=== PATIENT | male | born 1970 | race Caucasian/White ===

== ENCOUNTER 2017-02-24 22:32 | Inpatient (IN) | payer MEDICAID ==
[~2017-02-24] VITALS: Ht 165.1 cm; Wt 72.3 kg
[~2017-02-24 22:32] MED LIST: ESCI5TAB10 PO; INSLAN SQ; INSU100C6 SQ; LISI2.5T2 PO; LOVA20TA PO
[2017-02-25 02:52] LABS: GLUCOMETER DEV NAME(LOC) 3EI B; GLUCOSE,POINT OF CARE 130 MG/DL (70-110)
[2017-02-25] MEDS ORDERED: HALOPERIDOL 5 MG TABLET PO PRN (03:30)
[2017-02-25] MEDS ORDERED: INFLUENZA VIRUS VACCINE QVS 2017-18 (3YR+)/PF 60 MCG/0.5 ML SYRINGE IM ONE (04:30)
[2017-02-25] MEDS ORDERED: INSULIN ASPART 100 UNITS/ML SQ PRN ×2 (06:30→07:00)
[2017-02-25 06:45] VITALS: BP 121/79
[2017-02-25 06:48] LABS: GLUCOMETER DEV NAME(LOC) 3EI B; GLUCOSE,POINT OF CARE 129 MG/DL (70-110)
[2017-02-25] MEDS ORDERED: DEXTROSE 50%-WATER 25 GM/50 ML SYG IVP PRN (07:00)
[2017-02-25] MEDS ORDERED: MAG HYDROX/AL HYDROX/SIMETH ES 30 ML SUSPENSION UDCUP PO PRN (08:00)
[2017-02-25] MEDS ORDERED: BENZOCAINE/MENTHOL LOZENGE MM PRN (08:00)
[2017-02-25] MEDS ORDERED: CloNIDine HCL 0.1 MG TABLET PO PRN (08:00)
[2017-02-25] MEDS ORDERED: ACETAMINOPHEN 325 MG TABLET PO PRN (08:00)
[2017-02-25] MEDS ORDERED: ALBUTEROL SULFATE HFA 90 MCG/PUFF 8 GM INHALER IH PRN (08:00)
[2017-02-25] MEDS ORDERED: LOPERAMIDE HCL 2 MG CAPSULE PO PRN (08:00)
[2017-02-25] MEDS ORDERED: PETROLATUM,WHITE 71 GM JELLY TP PRN (08:00)
[2017-02-25] MEDS ORDERED: IBUPROFEN 600 MG TABLET PO PRN (08:00)
[2017-02-25] MEDS ORDERED: BACITRACIN 28.4 GM OINTMENT TP PRN (08:00)
[2017-02-25] MEDS ORDERED: ONDANSETRON HCL 4 MG TABLET PO PRN (08:00)
[2017-02-25] MEDS ORDERED: MAGNESIUM HYDROXIDE SUSPENSION 30 ML UDCUP PO PRN (08:00)
[2017-02-25 09:02] VITALS: BP 97/58
[2017-02-25] MEDS: SIMVASTATIN 10 MG TABLET PO SCH ×2 (11:11→20:38)
[2017-02-25] MEDS: LISINOPRIL 5 MG TABLET PO SCH (11:13)
[2017-02-25 11:22] LABS: GLUCOMETER DEV NAME(LOC) 3EI B; GLUCOSE,POINT OF CARE 430 MG/DL (70-110)
[2017-02-25] MEDS: INSULIN ASPART 100 UNITS/ML SQ PRN ×2 (11:27→20:37)
[2017-02-25] MEDS ORDERED: INSULIN ASPART 100 UNITS/ML SQ ONE ×2 (11:30→12:30)
[2017-02-25 13:17] LABS: GLUCOMETER DEV NAME(LOC) 3EI B; GLUCOSE,POINT OF CARE 339 MG/DL (70-110)
[2017-02-25 13:18] LABS: GLUCOMETER DEV NAME(LOC) 3EI B; GLUCOSE,POINT OF CARE 267 MG/DL (70-110)
[2017-02-25 17:08] VITALS: BP 127/70
[2017-02-25 17:27] LABS: GLUCOMETER DEV NAME(LOC) 3EI B; GLUCOSE,POINT OF CARE 33 MG/DL (70-110)
[2017-02-25 17:27] LABS: GLUCOMETER DEV NAME(LOC) 3EI B; GLUCOSE,POINT OF CARE 87 MG/DL (70-110)
[2017-02-25 20:22] LABS: GLUCOMETER DEV NAME(LOC) 3EI B; GLUCOSE,POINT OF CARE 379 MG/DL (70-110)
[2017-02-25] MEDS: INSULIN DETEMIR 100 UNITS/ML SQ SCH (20:38)
[2017-02-25] MEDS: ZOLPIDEM TARTRATE 10 MG TABLET PO PRN (21:47)
[2017-02-26] MEDS: LORazepam 2 MG TABLET PO PRN (01:33)
[2017-02-26 04:42] VITALS: BP 123/75
[2017-02-26 06:02] LABS: GLUCOMETER DEV NAME(LOC) 3EI B; GLUCOSE,POINT OF CARE 208 MG/DL (70-110)
[2017-02-26] MEDS: INSULIN ASPART 100 UNITS/ML SQ PRN ×3 (06:50→20:42)
[2017-02-26 07:31] LABS: BASOPHILS % (AUTO) 0.3 % (0.0-2.0); EOSINOPHILS % (AUTO) 0.8 % (1.0-6.0); HEMATOCRIT 44.7 % (41-53); HEMOGLOBIN 15.2 g/dL (13.5-17.5); LYMPHOCYTES % (AUTO) 16.5 % (22.0-44.0); MEAN CORPUSCULAR HEMOGLOBIN 30.8 pg (26.0-34.0); MEAN CORPUSCULAR HGB CONC 33.9 G/dL (31.0-37.0); MEAN CORPUSCULAR VOLUME 91 fL (80-100); MONOCYTES # (AUTO) 0.6 K/uL (0.1-1.0); MONOCYTES % (AUTO) 9.2 % (2.0-9.0); NEUTROPHILS # (AUTO) 4.4 K/uL (1.8-7.7); NEUTROPHILS % (AUTO) 73.2 % (40.0-70.0); PLATELET COUNT (AUTO) 223 K/uL (150-450); RED BLOOD CELL COUNT(AUTO) 4.92 MIL/uL (4.50-5.90)
[2017-02-26 08:15] VITALS: BP 103/57
[2017-02-26 08:23] LABS: ALANINE AMINOTRANSFERASE 53 U/L (12-78); ALBUMIN 3.7 g/dL (3.4-5.0); ALKALINE PHOSPHATASE 65 U/L (46-116); ANION GAP 7 mmol/L (8-16); ASPARTATE AMINOTRANSFERASE 20 U/L (15-37); BILIRUBIN,TOTAL 0.6 mg/dL (0.1-1.0); CALCIUM, TOTAL 8.9 mg/dL (8.8-10.5); CARBON DIOXIDE 28 mmol/L (22-29); CHLORIDE 102 mmol/L (98-107); CHOL/HDL RATIO 3.8 (4.2-7.3); CHOLESTEROL 181 mg/dL (131-200); CREATININE 0.93 mg/dL (0.60-1.30); GLOMERULAR FILTR. RATE CALC > 60 mL/min (>60); GLUCOSE,RANDOM 201 mg/dL (70-110); HDL CHOLESTEROL 48 mg/dL (40-60); LDL CHOL (CALC.) 125 mg/dL (0-130); SODIUM SERUM 137 mmol/L (136-145); THYROID STIMULATING HORMONE 1.31 uIU/mL (0.36-3.74); TOTAL PROTEIN, SERUM 6.8 g/dL (6.4-8.2); TRIGLYCERIDES 39 mg/dL (15-150); UREA NITROGEN, BLOOD 23 mg/dL (7-18)
[2017-02-26 08:31] LABS: HEMOGLOBIN A1C 7.8 % (4.5-6.2)
[2017-02-26] MEDS: CITALOPRAM HYDROBROMIDE 20 MG TABLET PO SCH (09:23)
[2017-02-26] MEDS: LITHIUM CARBONATE 300 MG CAPSULE PO SCH ×2 (09:23→17:00)
[2017-02-26] MEDS: LISINOPRIL 5 MG TABLET PO SCH (09:23)
[2017-02-26 11:28] LABS: GLUCOMETER DEV NAME(LOC) 3EI B; GLUCOSE,POINT OF CARE 59 MG/DL (70-110)
[2017-02-26 12:47] LABS: GLUCOMETER DEV NAME(LOC) 3EI B; GLUCOSE,POINT OF CARE 205 MG/DL (70-110)
[2017-02-26 18:12] LABS: GLUCOMETER DEV NAME(LOC) 3EI B; GLUCOSE,POINT OF CARE 412 MG/DL (70-110)
[2017-02-26] MEDS ORDERED: INSULIN ASPART 100 UNITS/ML SQ ONE ×2 (18:15→19:30)
[2017-02-26 19:22] LABS: GLUCOMETER DEV NAME(LOC) 3EI B; GLUCOSE,POINT OF CARE 404 MG/DL (70-110)
[2017-02-26 20:28] LABS: GLUCOMETER DEV NAME(LOC) 3EI B; GLUCOSE,POINT OF CARE 315 MG/DL (70-110)
[2017-02-26] MEDS: SIMVASTATIN 10 MG TABLET PO SCH (20:40)
[2017-02-26] MEDS: ZOLPIDEM TARTRATE 10 MG TABLET PO PRN (20:40)
[2017-02-26] MEDS: INSULIN DETEMIR 100 UNITS/ML SQ SCH (20:42)
[2017-02-27 00:02] LABS: GLUCOMETER DEV NAME(LOC) 3EI B; GLUCOSE,POINT OF CARE 32 MG/DL (70-110)
[2017-02-27 01:00] VITALS: BP 124/71
[2017-02-27 01:07] LABS: GLUCOMETER DEV NAME(LOC) 3EI B; GLUCOSE,POINT OF CARE 258 MG/DL (70-110)
[2017-02-27] MEDS: LORazepam 2 MG TABLET PO PRN (02:54)
[2017-02-27 06:22] LABS: GLUCOMETER DEV NAME(LOC) 3EI B; GLUCOSE,POINT OF CARE 237 MG/DL (70-110)
[2017-02-27] MEDS: INSULIN ASPART 100 UNITS/ML SQ PRN ×4 (07:22→20:37)
[2017-02-27 09:02] VITALS: BP 101/81
[2017-02-27] MEDS: LISINOPRIL 5 MG TABLET PO SCH (09:53)
[2017-02-27] MEDS: CITALOPRAM HYDROBROMIDE 20 MG TABLET PO SCH (09:54)
[2017-02-27] MEDS: LITHIUM CARBONATE 300 MG CAPSULE PO SCH ×2 (09:54→16:41)
[2017-02-27 11:27] LABS: GLUCOMETER DEV NAME(LOC) 3EI B; GLUCOSE,POINT OF CARE 99 MG/DL (70-110)
[2017-02-27 17:03] LABS: GLUCOMETER DEV NAME(LOC) 3EI B; GLUCOSE,POINT OF CARE 244 MG/DL (70-110)
[2017-02-27] MEDS: INSULIN DETEMIR 100 UNITS/ML SQ SCH (20:36)
[2017-02-27 20:38] LABS: GLUCOMETER DEV NAME(LOC) 3EI B; GLUCOSE,POINT OF CARE 291 MG/DL (70-110)
[2017-02-27] MEDS: SIMVASTATIN 10 MG TABLET PO SCH (21:41)
[2017-02-28 00:32] VITALS: BP 102/70
[2017-02-28] MEDS: ZOLPIDEM TARTRATE 10 MG TABLET PO PRN (00:36)
[2017-02-28 05:24] LABS: GLUCOMETER DEV NAME(LOC) 3EI B; GLUCOSE,POINT OF CARE 113 MG/DL (70-110)
[2017-02-28] MEDS: LITHIUM CARBONATE 300 MG CAPSULE PO SCH ×2 (09:00→16:59)
[2017-02-28] MEDS: LISINOPRIL 5 MG TABLET PO SCH (09:00)
[2017-02-28] MEDS: CITALOPRAM HYDROBROMIDE 20 MG TABLET PO SCH (10:01)
[2017-02-28 10:58] VITALS: BP 129/88
[2017-02-28] MEDS: INSULIN ASPART 100 UNITS/ML SQ PRN ×3 (11:41→21:04)
[2017-02-28] MEDS: LORazepam 2 MG TABLET PO PRN ×2 (12:28→17:35)
[2017-02-28 16:22] VITALS: BP 112/86
[2017-02-28 17:19] LABS: GLUCOMETER DEV NAME(LOC) 3EI B; GLUCOSE,POINT OF CARE 261 MG/DL (70-110)
[2017-02-28 20:49] LABS: GLUCOMETER DEV NAME(LOC) 3EI B; GLUCOSE,POINT OF CARE 237 MG/DL (70-110)
[2017-02-28] MEDS: INSULIN DETEMIR 100 UNITS/ML SQ SCH (20:59)
[2017-02-28] MEDS: SIMVASTATIN 10 MG TABLET PO SCH (21:07)
[2017-03-01 06:26] LABS: GLUCOMETER DEV NAME(LOC) 3EI B; GLUCOSE,POINT OF CARE 225 MG/DL (70-110)
[2017-03-01] MEDS: INSULIN ASPART 100 UNITS/ML SQ PRN ×2 (07:09→11:32)
[2017-03-01] MEDS: LITHIUM CARBONATE 300 MG CAPSULE PO SCH ×2 (09:00→09:55)
[2017-03-01] MEDS: LISINOPRIL 5 MG TABLET PO SCH (09:00)
[2017-03-01] MEDS: CITALOPRAM HYDROBROMIDE 20 MG TABLET PO SCH (09:55)
[2017-03-01 11:34] LABS: GLUCOMETER DEV NAME(LOC) 3EI B; GLUCOSE,POINT OF CARE 91 MG/DL (70-110)
[2017-03-01] MEDS ORDERED: CITA20TA9 PO (12:07)
[2017-03-01] MEDS ORDERED: LITH300C3 PO (12:07)
[2017-03-01] MEDS ORDERED: SIMV-259 PO (12:09)
[2017-03-01] MEDS ORDERED: INSU100V12 SQ (12:09)
[2017-03-01 13:41] VITALS: BP 127/86
== END 2017-03-01 13:30 | disposition home or self-care (01) | DRG 753 ==
LOC: 3EI 02-25 01:00
PROVIDERS: ADMIT Psychiatry & Neurology Psychiatry; ATTEND Psychiatry & Neurology Psychiatry
DX: F31.9 Bipolar disorder, unspecified (principal); E10.40 Type 1 diabetes mellitus with diabetic neuropathy, unspecified; R45.851 Suicidal ideations; I10 Essential (primary) hypertension; F19.10 Other psychoactive substance abuse, uncomplicated; G47.00 Insomnia, unspecified; F17.200 Nicotine dependence, unspecified, uncomplicated; F15.10 Other stimulant abuse, uncomplicated; E10.65 Type 1 diabetes mellitus with hyperglycemia; K59.00 Constipation, unspecified; Z72.89 Other problems related to lifestyle; Z56.0 Unemployment, unspecified; Z79.4 Long term (current) use of insulin; Z59.0 Homelessness; Z71.41 Alcohol abuse counseling and surveillance of alcoholic; Z71.6 Tobacco abuse counseling; Z71.51 Drug abuse counseling and surveillance of drug abuser; Z28.21 Immunization not carried out because of patient refusal
CPT/HCPCS: 82306; 82962; 83036; 84443; 87081; 99285; J1815

== ENCOUNTER 2017-03-01 13:40 | Inpatient (IN) | payer MEDICAID, OTHER ==
[~2017-03-01] VITALS: Ht 167.6 cm; Wt 70.8 kg
[~2017-03-01 13:40] MED LIST changes: +CITA20TA9 PO; +INSU100V12 SQ; +LITH300C3 PO; +SIMV-259 PO
[2017-03-01] MEDS ORDERED: HALOPERIDOL 5 MG TABLET PO PRN (17:15)
[2017-03-01 17:27] LABS: BASOPHILS # (AUTO) 0.03 K/uL (0.00-0.20); BASOPHILS % (AUTO) 0.5 % (0.0-2.0); EOSINOPHILS # (AUTO) 0.05 K/uL (0.00-0.70); EOSINOPHILS % (AUTO) 0.86 % (1.0-6.0); HEMATOCRIT 47.1 % (41-53); HEMOGLOBIN 15.5 g/dL (13.5-17.5); LYMPHOCYTES # (AUTO) 0.8 K/uL (1.0-4.8); LYMPHOCYTES % (AUTO) 13.8 % (22.0-44.0); MEAN CORPUSCULAR HEMOGLOBIN 29.9 pg (26.0-34.0); MEAN CORPUSCULAR HGB CONC 32.9 G/dL (31.0-37.0); MEAN CORPUSCULAR VOLUME 91 fL (80-100); MONOCYTES # (AUTO) 0.6 K/uL (0.1-1.0); MONOCYTES % (AUTO) 9.2 % (2.0-9.0); NEUTROPHILS # (AUTO) 4.6 K/uL (1.8-7.7); NEUTROPHILS % (AUTO) 75.7 % (40.0-70.0); PLATELET COUNT (AUTO) 188 K/uL (150-450); RED BLOOD CELL COUNT(AUTO) 5.18 MIL/uL (4.50-5.90); RED CELL DISTRIBUTION WIDTH 12.8 % (11.5-14.5); WHITE BLOOD COUNT (AUTO) 6.1 K/uL (4.5-11.0)
[2017-03-01 17:36] LABS: ANION GAP 7 mmol/L (8-16); CALCIUM, TOTAL 8.8 mg/dL (8.8-10.5); CARBON DIOXIDE 29 mmol/L (22-29); CHLORIDE 102 mmol/L (98-107); CREATININE 1.03 mg/dL (0.60-1.30); GLOMERULAR FILTR. RATE CALC > 60 mL/min (>60); POTASSIUM 4.5 mmol/L (3.5-5.1); SODIUM SERUM 138 mmol/L (136-145); UREA NITROGEN, BLOOD 18 mg/dL (7-18)
[2017-03-01 17:41] LABS: ALANINE AMINOTRANSFERASE 53 U/L (12-78); ALBUMIN 3.7 g/dL (3.4-5.0); ASPARTATE AMINOTRANSFERASE 24 U/L (15-37); BILIRUBIN,TOTAL 0.6 mg/dL (0.1-1.0)
[2017-03-01] MEDS ORDERED: DEXTROSE 50%-WATER 25 GM/50 ML SYRINGE IVP PRN (18:45)
[2017-03-01] MEDS ORDERED: ACETAMINOPHEN 325 MG TABLET PO PRN (18:45)
[2017-03-01] MEDS ORDERED: IBUPROFEN 600 MG TABLET PO PRN (18:45)
[2017-03-01] MEDS ORDERED: PNEUMOCOCCAL VACCINE POLYVALENT 0.5 ML VIAL [PPSV23] IM ONE (19:00)
[2017-03-01] MEDS ORDERED: INFLUENZA VIRUS VACCINE QVS 2017-18 (3YR+)/PF 60 MCG/0.5 ML SYRINGE IM ONE (19:00)
[2017-03-01 20:47] LABS: GLUCOSE,POINT OF CARE 312 MG/DL (70-110)
[2017-03-01] MEDS: SIMVASTATIN 10 MG TABLET PO SCH (20:52)
[2017-03-01] MEDS: INSULIN DETEMIR 100 UNITS/ML SQ SCH (20:55)
[2017-03-01] MEDS: INSULIN ASPART 100 UNITS/ML SQ PRN (20:55)
[2017-03-01] MEDS: ZOLPIDEM TARTRATE 10 MG TABLET PO PRN (21:31)
[2017-03-02 01:50] VITALS: BP 120/66
[2017-03-02] MEDS: LORazepam 2 MG TABLET PO PRN ×3 (01:52→16:53)
[2017-03-02] MEDS: INSULIN ASPART 100 UNITS/ML SQ PRN ×4 (06:40→17:33)
[2017-03-02 06:43] LABS: GLUCOSE,POINT OF CARE 170 MG/DL (70-110)
[2017-03-02 08:38] VITALS: BP 116/66
[2017-03-02] MEDS: CITALOPRAM HYDROBROMIDE 20 MG TABLET PO SCH (08:59)
[2017-03-02] MEDS: LISINOPRIL 5 MG TABLET PO SCH (08:59)
[2017-03-02] MEDS: INSULIN ASPART 100 UNITS/ML SQ SCH ×3 (11:00→16:53)
[2017-03-02 11:18] LABS: GLUCOSE,POINT OF CARE 212 MG/DL (70-110)
[2017-03-02 16:12] VITALS: BP 111/60
[2017-03-02] MEDS: LITHIUM CARBONATE 300 MG CAPSULE PO SCH (16:53)
[2017-03-02 16:57] LABS: GLUCOSE,POINT OF CARE 341 MG/DL (70-110)
[2017-03-02] MEDS: SIMVASTATIN 10 MG TABLET PO SCH (20:32)
[2017-03-02] MEDS: INSULIN DETEMIR 100 UNITS/ML SQ SCH (20:32)
[2017-03-02] MEDS: ZOLPIDEM TARTRATE 10 MG TABLET PO PRN (20:56)
[2017-03-03 00:11] LABS: GLUCOSE,POINT OF CARE 133 MG/DL (70-110)
[2017-03-03 02:45] VITALS: BP 128/62
[2017-03-03] MEDS: LORazepam 2 MG TABLET PO PRN ×2 (02:47→11:51)
[2017-03-03] MEDS: INSULIN ASPART 100 UNITS/ML SQ SCH ×3 (07:03→16:58)
[2017-03-03] MEDS: INSULIN ASPART 100 UNITS/ML SQ PRN ×3 (07:05→20:44)
[2017-03-03 07:08] LABS: GLUCOSE,POINT OF CARE 276 MG/DL (70-110)
[2017-03-03 08:20] VITALS: BP 102/61
[2017-03-03] MEDS: LITHIUM CARBONATE 300 MG CAPSULE PO SCH ×2 (09:32→16:25)
[2017-03-03] MEDS: CITALOPRAM HYDROBROMIDE 20 MG TABLET PO SCH (09:32)
[2017-03-03] MEDS: LISINOPRIL 5 MG TABLET PO SCH (09:32)
[2017-03-03 11:07] LABS: GLUCOSE,POINT OF CARE 222 MG/DL (70-110)
[2017-03-03 11:50] VITALS: BP 112/76
[2017-03-03 16:50] VITALS: BP 99/56
[2017-03-03 16:57] LABS: GLUCOSE,POINT OF CARE 138 MG/DL (70-110)
[2017-03-03 20:23] LABS: GLUCOSE,POINT OF CARE 238 MG/DL (70-110)
[2017-03-03] MEDS: SIMVASTATIN 10 MG TABLET PO SCH (20:32)
[2017-03-03] MEDS: INSULIN DETEMIR 100 UNITS/ML SQ SCH (20:44)
[2017-03-04 02:44] VITALS: BP 104/68
[2017-03-04] MEDS: INSULIN ASPART 100 UNITS/ML SQ SCH ×3 (06:10→17:02)
[2017-03-04 06:18] LABS: GLUCOSE,POINT OF CARE 318 MG/DL (70-110)
[2017-03-04] MEDS: INSULIN ASPART 100 UNITS/ML SQ PRN ×3 (06:21→21:15)
[2017-03-04 08:01] VITALS: BP 103/68
[2017-03-04] MEDS: CITALOPRAM HYDROBROMIDE 20 MG TABLET PO SCH (08:02)
[2017-03-04] MEDS: LITHIUM CARBONATE 300 MG CAPSULE PO SCH ×2 (08:03→16:45)
[2017-03-04] MEDS: LISINOPRIL 5 MG TABLET PO SCH (08:03)
[2017-03-04] MEDS: LORazepam 2 MG TABLET PO PRN ×2 (08:04→12:54)
[2017-03-04 08:12] VITALS: BP 95/63
[2017-03-04 11:13] LABS: GLUCOSE COMMENT 1 Received Meds; GLUCOSE,POINT OF CARE 241 MG/DL (70-110)
[2017-03-04 16:42] LABS: GLUCOSE,POINT OF CARE 139 MG/DL (70-110)
[2017-03-04 17:48] VITALS: BP 118/69
[2017-03-04 20:33] LABS: GLUCOSE,POINT OF CARE 226 MG/DL (70-110)
[2017-03-04] MEDS: SIMVASTATIN 10 MG TABLET PO SCH (20:44)
[2017-03-04] MEDS: INSULIN DETEMIR 100 UNITS/ML SQ SCH (21:15)
[2017-03-04] MEDS ORDERED: GLUCAGON,HUMAN RECOMBINANT 1 MG VIAL IM PRN (21:30)
[2017-03-04] MEDS: ZOLPIDEM TARTRATE 10 MG TABLET PO PRN (22:20)
[2017-03-05 01:46] VITALS: BP 109/72
[2017-03-05] MEDS: LORazepam 2 MG TABLET PO PRN ×3 (02:00→16:16)
[2017-03-05] MEDS: INSULIN ASPART 100 UNITS/ML SQ SCH ×3 (07:04→16:39)
[2017-03-05 08:29] VITALS: BP 118/64
[2017-03-05] MEDS: LITHIUM CARBONATE 300 MG CAPSULE PO SCH ×2 (08:36→16:16)
[2017-03-05] MEDS: LISINOPRIL 5 MG TABLET PO SCH (08:36)
[2017-03-05] MEDS: CITALOPRAM HYDROBROMIDE 20 MG TABLET PO SCH (08:36)
[2017-03-05 08:38] LABS: GLUCOSE,POINT OF CARE 110 MG/DL (70-110)
[2017-03-05 11:12] LABS: GLUCOSE COMMENT 1 Received Meds; GLUCOSE,POINT OF CARE 86 MG/DL (70-110)
[2017-03-05 16:24] VITALS: BP 109/68
[2017-03-05 16:28] LABS: GLUCOSE,POINT OF CARE 374 MG/DL (70-110)
[2017-03-05] MEDS: INSULIN ASPART 100 UNITS/ML SQ PRN ×2 (16:39→20:27)
[2017-03-05] MEDS: SIMVASTATIN 10 MG TABLET PO SCH (20:05)
[2017-03-05] MEDS: ZOLPIDEM TARTRATE 10 MG TABLET PO PRN (20:23)
[2017-03-05] MEDS: INSULIN DETEMIR 100 UNITS/ML SQ SCH (20:27)
[2017-03-05 20:33] LABS: GLUCOSE,POINT OF CARE 275 MG/DL (70-110)
[2017-03-06 00:04] VITALS: BP 100/61
[2017-03-06] MEDS: LORazepam 2 MG TABLET PO PRN ×2 (06:32→17:57)
[2017-03-06 07:02] LABS: GLUCOSE,POINT OF CARE 276 MG/DL (70-110)
[2017-03-06] MEDS: INSULIN ASPART 100 UNITS/ML SQ PRN ×3 (07:19→20:42)
[2017-03-06] MEDS: INSULIN ASPART 100 UNITS/ML SQ SCH ×3 (07:19→16:43)
[2017-03-06 08:56] VITALS: BP 109/70
[2017-03-06] MEDS: LISINOPRIL 5 MG TABLET PO SCH (09:00)
[2017-03-06] MEDS: CITALOPRAM HYDROBROMIDE 20 MG TABLET PO SCH (10:23)
[2017-03-06] MEDS: LITHIUM CARBONATE 300 MG CAPSULE PO SCH ×2 (10:24→16:13)
[2017-03-06 12:14] LABS: GLUCOSE COMMENT 1 Received Meds; GLUCOSE,POINT OF CARE 228 MG/DL (70-110)
[2017-03-06 16:13] VITALS: BP 100/60
[2017-03-06 16:33] LABS: GLUCOSE,POINT OF CARE 101 MG/DL (70-110)
[2017-03-06] MEDS: SIMVASTATIN 10 MG TABLET PO SCH (20:26)
[2017-03-06] MEDS: ZOLPIDEM TARTRATE 10 MG TABLET PO PRN (20:33)
[2017-03-06] MEDS: INSULIN DETEMIR 100 UNITS/ML SQ SCH (20:42)
[2017-03-06 20:52] LABS: GLUCOSE,POINT OF CARE 207 MG/DL (70-110)
[2017-03-07 01:12] VITALS: BP 108/63
[2017-03-07] MEDS: LORazepam 2 MG TABLET PO PRN ×2 (01:13→07:13)
[2017-03-07] MEDS: INSULIN ASPART 100 UNITS/ML SQ SCH ×3 (06:34→16:33)
[2017-03-07] MEDS: INSULIN ASPART 100 UNITS/ML SQ PRN ×3 (06:36→20:35)
[2017-03-07 07:03] VITALS: BP 115/69
[2017-03-07 07:43] LABS: GLUCOSE,POINT OF CARE 236 MG/DL (70-110)
[2017-03-07 08:55] VITALS: BP 100/67
[2017-03-07] MEDS: LISINOPRIL 5 MG TABLET PO SCH (10:17)
[2017-03-07] MEDS: CITALOPRAM HYDROBROMIDE 20 MG TABLET PO SCH (10:17)
[2017-03-07] MEDS: LITHIUM CARBONATE 300 MG CAPSULE PO SCH ×2 (10:17→16:27)
[2017-03-07 11:02] LABS: GLUCOSE COMMENT 1 Received Meds; GLUCOSE,POINT OF CARE 108 MG/DL (70-110)
[2017-03-07 16:15] VITALS: BP 116/69
[2017-03-07 16:43] LABS: GLUCOSE,POINT OF CARE 331 MG/DL (70-110)
[2017-03-07] MEDS: ZOLPIDEM TARTRATE 10 MG TABLET PO PRN (20:32)
[2017-03-07] MEDS: SIMVASTATIN 10 MG TABLET PO SCH (20:32)
[2017-03-07] MEDS: INSULIN DETEMIR 100 UNITS/ML SQ SCH (20:34)
[2017-03-07 20:48] LABS: GLUCOSE,POINT OF CARE 227 MG/DL (70-110)
[2017-03-08] MEDS: INSULIN ASPART 100 UNITS/ML SQ SCH ×2 (06:37→11:47)
[2017-03-08] MEDS: INSULIN ASPART 100 UNITS/ML SQ PRN (06:40)
[2017-03-08 07:03] LABS: GLUCOSE,POINT OF CARE 288 MG/DL (70-110)
[2017-03-08] MEDS ORDERED: LITH300C3 PO (08:05)
[2017-03-08] MEDS ORDERED: LISI-660 PO (08:05)
[2017-03-08] MEDS ORDERED: INSU100C6 SQ (08:05)
[2017-03-08] MEDS ORDERED: CITA20TA9 PO (08:05)
[2017-03-08] MEDS ORDERED: WALK1EAC55 CLINICAL (08:06)
[2017-03-08 08:15] VITALS: BP 104/60
[2017-03-08] MEDS: CITALOPRAM HYDROBROMIDE 20 MG TABLET PO SCH (08:50)
[2017-03-08] MEDS: LITHIUM CARBONATE 300 MG CAPSULE PO SCH (08:50)
[2017-03-08] MEDS: LISINOPRIL 5 MG TABLET PO SCH (08:50)
[2017-03-08] MEDS ORDERED: HYDROCORTISONE 0.5% 30 GM OINTMENT TP PRN (10:15)
[2017-03-08 10:48] LABS: GLUCOSE,POINT OF CARE 116 MG/DL (70-110)
[2017-03-08 16:36] VITALS: BP 119/63
== END 2017-03-08 17:50 | disposition home or self-care (01) | DRG 750 ==
LOC: EMS 13:42 → B2S 17:16
PROVIDERS: ADMIT Psychiatry & Neurology Psychiatry; ATTEND Psychiatry & Neurology Psychiatry
DX: F25.9 Schizoaffective disorder, unspecified (principal); E10.65 Type 1 diabetes mellitus with hyperglycemia; R45.851 Suicidal ideations; I10 Essential (primary) hypertension; F15.10 Other stimulant abuse, uncomplicated; E78.00 Pure hypercholesterolemia, unspecified; F41.9 Anxiety disorder, unspecified; F17.210 Nicotine dependence, cigarettes, uncomplicated; F31.9 Bipolar disorder, unspecified; G47.00 Insomnia, unspecified; Z95.0 Presence of cardiac pacemaker; Z71.6 Tobacco abuse counseling; Z59.0 Homelessness; Z79.4 Long term (current) use of insulin; Z79.899 Other long term (current) drug therapy
CPT/HCPCS: 82962; 87081; 90471; 99285; G0480; J1815

== ENCOUNTER 2017-03-11 23:28 | Inpatient (IN) | payer MEDICAID ==
[~2017-03-11] VITALS: Ht 167.6 cm; Wt 71.2 kg
[~2017-03-11 23:28] MED LIST changes: -ESCI5TAB10 PO; -INSLAN SQ; -LISI2.5T2 PO; -LOVA20TA PO
[2017-03-12 01:50] VITALS: BP 147/92
[2017-03-12 02:24] LABS: GLUCOSE,POINT OF CARE 352 MG/DL (70-110)
[2017-03-12] MEDS: LORazepam 2 MG TABLET PO PRN ×3 (03:24→17:16)
[2017-03-12 08:14] VITALS: BP 101/68
[2017-03-12 08:47] LABS: GLUCOSE COMMENT 1 Doctor Notified; GLUCOSE,POINT OF CARE > 600 MG/DL (70-110)
[2017-03-12] MEDS ORDERED: ACETAMINOPHEN 325 MG TABLET PO PRN (09:00)
[2017-03-12] MEDS ORDERED: BACITRACIN 28.4 GM OINTMENT TP PRN (09:00)
[2017-03-12] MEDS ORDERED: ALBUTEROL SULFATE HFA 90 MCG/PUFF 8 GM INHALER IH PRN (09:00)
[2017-03-12] MEDS ORDERED: GLUCAGON,HUMAN RECOMBINANT 1 MG VIAL IM PRN (09:00)
[2017-03-12] MEDS ORDERED: BENZOCAINE/MENTHOL LOZENGE MM PRN (09:00)
[2017-03-12] MEDS ORDERED: MAGNESIUM HYDROXIDE SUSPENSION 30 ML UDCUP PO PRN (09:00)
[2017-03-12] MEDS ORDERED: MAG HYDROX/AL HYDROX/SIMETH ES 30 ML SUSPENSION UDCUP PO PRN (09:00)
[2017-03-12] MEDS ORDERED: INSULIN ASPART 100 UNITS/ML SQ ONE ×5 (09:00→11:45)
[2017-03-12] MEDS ORDERED: CloNIDine HCL 0.1 MG TABLET PO PRN (09:00)
[2017-03-12] MEDS ORDERED: LOPERAMIDE HCL 2 MG CAPSULE PO PRN (09:00)
[2017-03-12] MEDS ORDERED: PETROLATUM,WHITE 71 GM JELLY TP PRN (09:00)
[2017-03-12] MEDS ORDERED: ONDANSETRON HCL 4 MG TABLET PO PRN (09:00)
[2017-03-12] MEDS: OMEPRAZOLE 20 MG CAPSULE PO SCH (09:15)
[2017-03-12 09:52] LABS: GLUCOSE COMMENT 1 Doctor Notified; GLUCOSE,POINT OF CARE > 600 MG/DL (70-110)
[2017-03-12 10:57] LABS: GLUCOSE COMMENT 1 Doctor Notified; GLUCOSE,POINT OF CARE > 600 MG/DL (70-110)
[2017-03-12 11:48] LABS: GLUCOSE COMMENT 1 Doctor Notified; GLUCOSE COMMENT 2 Received Meds; GLUCOSE,POINT OF CARE 499 MG/DL (70-110)
[2017-03-12] MEDS: INSULIN ASPART 100 UNITS/ML SQ SCH ×2 (12:01→16:30)
[2017-03-12] MEDS: CITALOPRAM HYDROBROMIDE 20 MG TABLET PO SCH (12:10)
[2017-03-12 13:17] LABS: GLUCOSE COMMENT 1 Doctor Notified; GLUCOSE,POINT OF CARE 377 MG/DL (70-110)
[2017-03-12 16:50] VITALS: BP 122/70
[2017-03-12] MEDS: LITHIUM CARBONATE 300 MG CAPSULE PO SCH (17:16)
[2017-03-12 17:57] LABS: GLUCOSE COMMENT 1 Received Meds; GLUCOSE,POINT OF CARE 59 MG/DL (70-110)
[2017-03-12 17:57] LABS: GLUCOSE COMMENT 1 Received Meds; GLUCOSE,POINT OF CARE 97 MG/DL (70-110)
[2017-03-12] MEDS: INSULIN ASPART 100 UNITS/ML SQ PRN ×2 (21:00→21:58)
[2017-03-12] MEDS: INSULIN DETEMIR 100 UNITS/ML SQ SCH (21:00)
[2017-03-12] MEDS: SIMVASTATIN 10 MG TABLET PO SCH (21:56)
[2017-03-12 22:08] LABS: GLUCOSE COMMENT 1 Received Meds; GLUCOSE,POINT OF CARE 200 MG/DL (70-110)
[2017-03-13] MEDS: ZOLPIDEM TARTRATE 10 MG TABLET PO PRN ×2 (00:16→21:39)
[2017-03-13 05:54] VITALS: BP 117/75
[2017-03-13 06:12] LABS: GLUCOSE COMMENT 1 Received Meds; GLUCOSE,POINT OF CARE 292 MG/DL (70-110)
[2017-03-13] MEDS: INSULIN ASPART 100 UNITS/ML SQ SCH ×3 (06:55→17:01)
[2017-03-13] MEDS: INSULIN ASPART 100 UNITS/ML SQ PRN ×4 (06:55→21:49)
[2017-03-13] MEDS: LORazepam 2 MG TABLET PO PRN (07:13)
[2017-03-13 08:11] VITALS: BP 108/65
[2017-03-13 08:29] LABS: BASOPHILS % (AUTO) 0.3 % (0.0-2.0); EOSINOPHILS % (AUTO) 1.9 % (1.0-6.0); HEMATOCRIT 41.6 % (41-53); HEMOGLOBIN 14.3 g/dL (13.5-17.5); LYMPHOCYTES % (AUTO) 17.1 % (22.0-44.0); MEAN CORPUSCULAR HEMOGLOBIN 30.9 pg (26.0-34.0); MEAN CORPUSCULAR HGB CONC 34.3 G/dL (31.0-37.0); MEAN CORPUSCULAR VOLUME 90 fL (80-100); MONOCYTES # (AUTO) 0.5 K/uL (0.1-1.0); MONOCYTES % (AUTO) 8.7 % (2.0-9.0); NEUTROPHILS # (AUTO) 4.3 K/uL (1.8-7.7); PLATELET COUNT (AUTO) 211 K/uL (150-450); RED BLOOD CELL COUNT(AUTO) 4.63 MIL/uL (4.50-5.90); RED CELL DISTRIBUTION WIDTH 12.9 % (11.5-14.5)
[2017-03-13] MEDS: CITALOPRAM HYDROBROMIDE 20 MG TABLET PO SCH (08:56)
[2017-03-13] MEDS: LITHIUM CARBONATE 300 MG CAPSULE PO SCH ×2 (08:56→17:02)
[2017-03-13] MEDS: OMEPRAZOLE 20 MG CAPSULE PO SCH (08:56)
[2017-03-13 08:58] LABS: HEMOGLOBIN A1C 8.3 % (4.5-6.2)
[2017-03-13] MEDS: NICOTINE 21 MG/24 HOUR PATCH TD SCH (09:00)
[2017-03-13 09:14] LABS: ALANINE AMINOTRANSFERASE 55 U/L (12-78); ALBUMIN 3.3 g/dL (3.4-5.0); ANION GAP 7 mmol/L (8-16); ASPARTATE AMINOTRANSFERASE 16 U/L (15-37); BILIRUBIN,TOTAL 0.3 mg/dL (0.1-1.0); CALCIUM, TOTAL 9.1 mg/dL (8.8-10.5); CARBON DIOXIDE 29 mmol/L (22-29); CHLORIDE 101 mmol/L (98-107); CHOL/HDL RATIO 4.7 (4.2-7.3); CREATININE 0.98 mg/dL (0.60-1.30); GLOMERULAR FILTR. RATE CALC > 60 mL/min (>60); POTASSIUM 4.4 mmol/L (3.5-5.1); SODIUM SERUM 137 mmol/L (136-145); THYROID STIMULATING HORMONE 0.42 uIU/mL (0.36-3.74); TOTAL PROTEIN, SERUM 6.6 g/dL (6.4-8.2); UREA NITROGEN, BLOOD 16 mg/dL (7-18)
[2017-03-13 11:47] LABS: GLUCOSE,POINT OF CARE 274 MG/DL (70-110)
[2017-03-13 16:00] VITALS: BP 118/69
[2017-03-13 17:18] LABS: GLUCOSE,POINT OF CARE 253 MG/DL (70-110)
[2017-03-13] MEDS: QUEtiapine FUMARATE 100 MG TABLET PO PRN (18:25)
[2017-03-13] MEDS ORDERED: LORazepam 2 MG TABLET PO PRN (18:30)
[2017-03-13] MEDS: SIMVASTATIN 10 MG TABLET PO SCH (21:39)
[2017-03-13] MEDS: INSULIN DETEMIR 100 UNITS/ML SQ SCH (21:46)
[2017-03-13 22:52] LABS: GLUCOSE,POINT OF CARE 157 MG/DL (70-110)
[2017-03-14 06:08] LABS: GLUCOSE COMMENT 1 Received Meds; GLUCOSE,POINT OF CARE 177 MG/DL (70-110)
[2017-03-14] MEDS: INSULIN ASPART 100 UNITS/ML SQ SCH ×3 (06:23→16:58)
[2017-03-14] MEDS: INSULIN ASPART 100 UNITS/ML SQ PRN ×4 (06:23→20:52)
[2017-03-14 07:01] VITALS: BP 110/70
[2017-03-14 08:20] VITALS: BP 108/62
[2017-03-14] MEDS: NICOTINE 21 MG/24 HOUR PATCH TD SCH (09:00)
[2017-03-14] MEDS: CITALOPRAM HYDROBROMIDE 20 MG TABLET PO SCH (09:03)
[2017-03-14] MEDS: LITHIUM CARBONATE 300 MG CAPSULE PO SCH ×2 (09:03→16:47)
[2017-03-14] MEDS: OMEPRAZOLE 20 MG CAPSULE PO SCH (09:03)
[2017-03-14 12:17] LABS: GLUCOSE,POINT OF CARE 217 MG/DL (70-110)
[2017-03-14 14:22] LABS: GLUCOSE COMMENT 1 Juice/Food/D50 Given; GLUCOSE,POINT OF CARE 67 MG/DL (70-110)
[2017-03-14 16:00] VITALS: BP 114/66
[2017-03-14 18:08] LABS: GLUCOSE,POINT OF CARE 212 MG/DL (70-110)
[2017-03-14] MEDS: QUEtiapine FUMARATE 100 MG TABLET PO PRN (18:20)
[2017-03-14] MEDS: SIMVASTATIN 10 MG TABLET PO SCH (20:43)
[2017-03-14] MEDS: ZOLPIDEM TARTRATE 10 MG TABLET PO PRN (20:44)
[2017-03-14] MEDS: INSULIN DETEMIR 100 UNITS/ML SQ SCH (20:51)
[2017-03-14 21:03] LABS: GLUCOSE,POINT OF CARE 153 MG/DL (70-110)
[2017-03-15 06:17] LABS: GLUCOSE,POINT OF CARE 165 MG/DL (70-110)
[2017-03-15] MEDS: QUEtiapine FUMARATE 100 MG TABLET PO PRN ×3 (06:32→16:49)
[2017-03-15] MEDS: INSULIN ASPART 100 UNITS/ML SQ PRN ×3 (06:36→21:03)
[2017-03-15] MEDS: INSULIN ASPART 100 UNITS/ML SQ SCH ×3 (06:36→16:51)
[2017-03-15 06:40] VITALS: BP 110/72
[2017-03-15 08:22] VITALS: BP 107/62
[2017-03-15] MEDS: CITALOPRAM HYDROBROMIDE 20 MG TABLET PO SCH (08:32)
[2017-03-15] MEDS: NICOTINE 21 MG/24 HOUR PATCH TD SCH (08:32)
[2017-03-15] MEDS: OMEPRAZOLE 20 MG CAPSULE PO SCH (08:32)
[2017-03-15] MEDS: LITHIUM CARBONATE 300 MG CAPSULE PO SCH ×2 (08:32→16:49)
[2017-03-15 12:03] LABS: GLUCOSE,POINT OF CARE 335 MG/DL (70-110)
[2017-03-15 16:00] VITALS: BP 122/72
[2017-03-15 17:42] LABS: GLUCOSE,POINT OF CARE 121 MG/DL (70-110)
[2017-03-15] MEDS: ZOLPIDEM TARTRATE 10 MG TABLET PO PRN (21:01)
[2017-03-15] MEDS: SIMVASTATIN 10 MG TABLET PO SCH (21:01)
[2017-03-15] MEDS: INSULIN DETEMIR 100 UNITS/ML SQ SCH (21:03)
[2017-03-15 21:18] LABS: GLUCOSE COMMENT 1 Received Meds; GLUCOSE,POINT OF CARE 228 MG/DL (70-110)
[2017-03-16 06:01] VITALS: BP 101/63
[2017-03-16 06:38] LABS: GLUCOSE COMMENT 1 Received Meds; GLUCOSE,POINT OF CARE 188 MG/DL (70-110)
[2017-03-16] MEDS: QUEtiapine FUMARATE 100 MG TABLET PO PRN ×2 (06:42→10:49)
[2017-03-16] MEDS: INSULIN ASPART 100 UNITS/ML SQ PRN ×3 (06:46→20:24)
[2017-03-16] MEDS: INSULIN ASPART 100 UNITS/ML SQ SCH ×3 (06:46→16:39)
[2017-03-16] MEDS: NICOTINE 21 MG/24 HOUR PATCH TD SCH (09:00)
[2017-03-16] MEDS: OMEPRAZOLE 20 MG CAPSULE PO SCH (09:04)
[2017-03-16] MEDS: LITHIUM CARBONATE 300 MG CAPSULE PO SCH ×2 (09:04→16:16)
[2017-03-16] MEDS: CITALOPRAM HYDROBROMIDE 20 MG TABLET PO SCH (09:04)
[2017-03-16 09:39] VITALS: BP 110/65
[2017-03-16 11:43] LABS: GLUCOSE,POINT OF CARE 177 MG/DL (70-110)
[2017-03-16 16:23] VITALS: BP 116/71
[2017-03-16 16:23] LABS: GLUCOSE,POINT OF CARE 101 MG/DL (70-110)
[2017-03-16] MEDS: ZOLPIDEM TARTRATE 10 MG TABLET PO PRN (20:22)
[2017-03-16] MEDS: SIMVASTATIN 10 MG TABLET PO SCH (20:22)
[2017-03-16] MEDS: INSULIN DETEMIR 100 UNITS/ML SQ SCH (20:25)
[2017-03-16 21:55] LABS: GLUCOSE COMMENT 1 Received Meds; GLUCOSE,POINT OF CARE 249 MG/DL (70-110)
[2017-03-17 00:24] VITALS: BP 101/61
[2017-03-17] MEDS: QUEtiapine FUMARATE 100 MG TABLET PO PRN ×3 (05:25→16:54)
[2017-03-17] MEDS: INSULIN ASPART 100 UNITS/ML SQ PRN ×3 (07:17→16:56)
[2017-03-17 07:18] LABS: GLUCOSE,POINT OF CARE 290 MG/DL (70-110)
[2017-03-17] MEDS: INSULIN ASPART 100 UNITS/ML SQ SCH ×3 (07:18→16:57)
[2017-03-17 08:20] VITALS: BP 107/64
[2017-03-17] MEDS: OMEPRAZOLE 20 MG CAPSULE PO SCH (08:37)
[2017-03-17] MEDS: NICOTINE 21 MG/24 HOUR PATCH TD SCH (08:38)
[2017-03-17] MEDS: CITALOPRAM HYDROBROMIDE 20 MG TABLET PO SCH (08:38)
[2017-03-17] MEDS: LITHIUM CARBONATE 300 MG CAPSULE PO SCH ×2 (08:38→16:54)
[2017-03-17 11:07] LABS: GLUCOSE,POINT OF CARE 186 MG/DL (70-110)
[2017-03-17 16:00] VITALS: BP 116/68
[2017-03-17 17:33] LABS: GLUCOSE,POINT OF CARE 243 MG/DL (70-110)
[2017-03-17] MEDS: SIMVASTATIN 10 MG TABLET PO SCH (21:11)
[2017-03-17] MEDS: ZOLPIDEM TARTRATE 10 MG TABLET PO PRN (21:12)
[2017-03-17] MEDS: HydrOXYzine PAMOATE 50 MG CAPSULE PO PRN (21:12)
[2017-03-17] MEDS: INSULIN DETEMIR 100 UNITS/ML SQ SCH (21:17)
[2017-03-17 21:27] LABS: GLUCOSE,POINT OF CARE 118 MG/DL (70-110)
[2017-03-18 01:57] VITALS: BP 135/85
[2017-03-18 06:17] LABS: GLUCOSE,POINT OF CARE 205 MG/DL (70-110)
[2017-03-18] MEDS: HydrOXYzine PAMOATE 50 MG CAPSULE PO PRN (06:20)
[2017-03-18] MEDS: INSULIN ASPART 100 UNITS/ML SQ PRN ×3 (06:25→20:31)
[2017-03-18] MEDS: INSULIN ASPART 100 UNITS/ML SQ SCH ×3 (06:25→16:52)
[2017-03-18 08:25] VITALS: BP 110/62
[2017-03-18] MEDS: LITHIUM CARBONATE 300 MG CAPSULE PO SCH ×2 (08:25→16:17)
[2017-03-18] MEDS: CITALOPRAM HYDROBROMIDE 20 MG TABLET PO SCH (08:25)
[2017-03-18] MEDS: IBUPROFEN 600 MG TABLET PO PRN (08:25)
[2017-03-18] MEDS: OMEPRAZOLE 20 MG CAPSULE PO SCH (08:25)
[2017-03-18] MEDS: NICOTINE 21 MG/24 HOUR PATCH TD SCH (08:28)
[2017-03-18] MEDS ORDERED: DICLOFENAC SODIUM 1% 100 GM GEL [2GM] TP PRN (08:30)
[2017-03-18] MEDS ORDERED: CITALOPRAM HYDROBROMIDE 20 MG TABLET PO SCH (09:00)
[2017-03-18 09:12] VITALS: BP 110/62
[2017-03-18 11:36] LABS: GLUCOSE,POINT OF CARE 335 MG/DL (70-110)
[2017-03-18] MEDS: QUEtiapine FUMARATE 100 MG TABLET PO PRN (13:28)
[2017-03-18 16:00] VITALS: BP 112/65
[2017-03-18 17:00] LABS: GLUCOSE,POINT OF CARE 89 MG/DL (70-110)
[2017-03-18] MEDS: SIMVASTATIN 10 MG TABLET PO SCH (20:13)
[2017-03-18] MEDS: ZOLPIDEM TARTRATE 10 MG TABLET PO PRN (20:13)
[2017-03-18] MEDS: INSULIN DETEMIR 100 UNITS/ML SQ SCH (20:30)
[2017-03-18 20:35] LABS: GLUCOSE COMMENT 1 Received Meds; GLUCOSE,POINT OF CARE 163 MG/DL (70-110)
[2017-03-19 01:49] VITALS: BP 117/75
[2017-03-19] MEDS: HydrOXYzine PAMOATE 50 MG CAPSULE PO PRN ×2 (04:53→16:43)
[2017-03-19] MEDS: IBUPROFEN 600 MG TABLET PO PRN (04:54)
[2017-03-19 06:12] LABS: GLUCOSE COMMENT 1 Received Meds; GLUCOSE,POINT OF CARE 170 MG/DL (70-110)
[2017-03-19] MEDS: INSULIN ASPART 100 UNITS/ML SQ SCH ×3 (06:17→16:45)
[2017-03-19] MEDS: INSULIN ASPART 100 UNITS/ML SQ PRN ×4 (06:17→20:57)
[2017-03-19 08:15] VITALS: BP 130/71
[2017-03-19 08:15] LABS: BASOPHILS % (AUTO) 0.4 % (0.0-2.0); EOSINOPHILS % (AUTO) 0.7 % (1.0-6.0); HEMATOCRIT 43.4 % (41-53); HEMOGLOBIN 14.6 g/dL (13.5-17.5); LYMPHOCYTES # (AUTO) 0.9 K/uL (1.0-4.8); LYMPHOCYTES % (AUTO) 11.9 % (22.0-44.0); MEAN CORPUSCULAR HEMOGLOBIN 30.6 pg (26.0-34.0); MEAN CORPUSCULAR HGB CONC 33.7 G/dL (31.0-37.0); MEAN CORPUSCULAR VOLUME 91 fL (80-100); MONOCYTES # (AUTO) 0.4 K/uL (0.1-1.0); MONOCYTES % (AUTO) 5.9 % (2.0-9.0); NEUTROPHILS % (AUTO) 81.1 % (40.0-70.0); PLATELET COUNT (AUTO) 265 K/uL (150-450); RED BLOOD CELL COUNT(AUTO) 4.78 MIL/uL (4.50-5.90); RED CELL DISTRIBUTION WIDTH 12.8 % (11.5-14.5); WHITE BLOOD COUNT (AUTO) 7.4 K/uL (4.5-11.0)
[2017-03-19] MEDS: OMEPRAZOLE 20 MG CAPSULE PO SCH (08:20)
[2017-03-19] MEDS: LITHIUM CARBONATE 300 MG CAPSULE PO SCH ×2 (08:20→16:42)
[2017-03-19] MEDS: CITALOPRAM HYDROBROMIDE 20 MG TABLET PO SCH (08:21)
[2017-03-19 08:22] LABS: ANION GAP 4 mmol/L (8-16); CALCIUM, TOTAL 9.3 mg/dL (8.8-10.5); CARBON DIOXIDE 31 mmol/L (22-29); CHLORIDE 104 mmol/L (98-107); CREATININE 0.99 mg/dL (0.60-1.30); GLOMERULAR FILTR. RATE CALC > 60 mL/min (>60); POTASSIUM 4.4 mmol/L (3.5-5.1); SODIUM SERUM 139 mmol/L (136-145); UREA NITROGEN, BLOOD 22 mg/dL (7-18)
[2017-03-19] MEDS: NICOTINE 21 MG/24 HOUR PATCH TD SCH (08:25)
[2017-03-19 08:32] LABS: LITHIUM 0.72 mmol/L (0.60-1.20)
[2017-03-19 11:38] LABS: GLUCOSE,POINT OF CARE 278 MG/DL (70-110)
[2017-03-19 15:02] LABS: GLUCOSE,POINT OF CARE 79 MG/DL (70-110)
[2017-03-19 16:00] VITALS: BP 127/81
[2017-03-19] MEDS: QUEtiapine FUMARATE 100 MG TABLET PO PRN (16:42)
[2017-03-19 17:08] LABS: GLUCOSE,POINT OF CARE 224 MG/DL (70-110)
[2017-03-19] MEDS: SIMVASTATIN 10 MG TABLET PO SCH (20:55)
[2017-03-19] MEDS: INSULIN DETEMIR 100 UNITS/ML SQ SCH (20:57)
[2017-03-19] MEDS ORDERED: GuaiFENesin/D-METHORPHAN [SUGAR-FREE] 200-20MG/10 ML SYRUP UDCUP PO PRN (21:00)
[2017-03-19 21:38] LABS: GLUCOSE,POINT OF CARE 150 MG/DL (70-110)
[2017-03-20 00:44] VITALS: BP 104/69
[2017-03-20 06:18] LABS: GLUCOSE COMMENT 1 Received Meds; GLUCOSE,POINT OF CARE 262 MG/DL (70-110)
[2017-03-20] MEDS: INSULIN ASPART 100 UNITS/ML SQ SCH ×3 (06:39→16:30)
[2017-03-20] MEDS: INSULIN ASPART 100 UNITS/ML SQ PRN ×3 (06:39→16:30)
[2017-03-20 08:26] VITALS: BP 115/71
[2017-03-20] MEDS: LITHIUM CARBONATE 300 MG CAPSULE PO SCH ×2 (08:29→16:52)
[2017-03-20] MEDS: OMEPRAZOLE 20 MG CAPSULE PO SCH (08:29)
[2017-03-20] MEDS: CITALOPRAM HYDROBROMIDE 20 MG TABLET PO SCH (08:29)
[2017-03-20] MEDS: NICOTINE 21 MG/24 HOUR PATCH TD SCH (08:29)
[2017-03-20 11:18] LABS: GLUCOSE,POINT OF CARE 271 MG/DL (70-110)
[2017-03-20 13:08] VITALS: BP 122/74
[2017-03-20] MEDS: IBUPROFEN 600 MG TABLET PO PRN ×2 (13:08→21:13)
[2017-03-20 16:13] VITALS: BP 130/72
[2017-03-20 16:43] LABS: GLUCOSE COMMENT 1 Received Meds; GLUCOSE,POINT OF CARE 153 MG/DL (70-110)
[2017-03-20] MEDS: HydrOXYzine PAMOATE 50 MG CAPSULE PO PRN (16:52)
[2017-03-20 20:27] LABS: GLUCOSE,POINT OF CARE 113 MG/DL (70-110)
[2017-03-20] MEDS: INSULIN DETEMIR 100 UNITS/ML SQ SCH (21:00)
[2017-03-20] MEDS: SIMVASTATIN 10 MG TABLET PO SCH (21:13)
[2017-03-20] MEDS: ZOLPIDEM TARTRATE 10 MG TABLET PO PRN (21:14)
[2017-03-21 05:36] VITALS: BP 124/80
[2017-03-21 06:08] LABS: GLUCOSE,POINT OF CARE 207 MG/DL (70-110)
[2017-03-21] MEDS: INSULIN ASPART 100 UNITS/ML SQ PRN ×3 (06:35→16:47)
[2017-03-21] MEDS: INSULIN ASPART 100 UNITS/ML SQ SCH ×3 (06:35→16:47)
[2017-03-21] MEDS: HydrOXYzine PAMOATE 50 MG CAPSULE PO PRN (06:46)
[2017-03-21] MEDS: IBUPROFEN 600 MG TABLET PO PRN ×2 (06:47→16:45)
[2017-03-21] MEDS: CITALOPRAM HYDROBROMIDE 20 MG TABLET PO SCH (08:20)
[2017-03-21] MEDS: QUEtiapine FUMARATE 100 MG TABLET PO PRN ×2 (08:20→16:45)
[2017-03-21] MEDS: LITHIUM CARBONATE 300 MG CAPSULE PO SCH ×2 (08:20→16:45)
[2017-03-21] MEDS: NICOTINE 21 MG/24 HOUR PATCH TD SCH (08:21)
[2017-03-21] MEDS: OMEPRAZOLE 20 MG CAPSULE PO SCH (08:21)
[2017-03-21 10:09] VITALS: BP 128/73
[2017-03-21 11:38] LABS: GLUCOSE,POINT OF CARE 113 MG/DL (70-110)
[2017-03-21 12:48] LABS: GLUCOSE COMMENT 1 Doctor Notified; GLUCOSE COMMENT 2 Received Meds; GLUCOSE,POINT OF CARE 176 MG/DL (70-110)
[2017-03-21 16:34] VITALS: BP 127/70
[2017-03-21 17:08] LABS: GLUCOSE,POINT OF CARE 215 MG/DL (70-110)
[2017-03-21] MEDS: SIMVASTATIN 10 MG TABLET PO SCH (20:44)
[2017-03-21] MEDS: ZOLPIDEM TARTRATE 10 MG TABLET PO PRN (20:44)
[2017-03-21] MEDS: INSULIN DETEMIR 100 UNITS/ML SQ SCH (20:47)
[2017-03-21 21:02] LABS: GLUCOSE,POINT OF CARE 119 MG/DL (70-110)
[2017-03-22 03:03] VITALS: BP 109/66
[2017-03-22] MEDS: HydrOXYzine PAMOATE 50 MG CAPSULE PO PRN (03:05)
[2017-03-22 05:58] LABS: GLUCOSE COMMENT 1 Received Meds; GLUCOSE,POINT OF CARE 217 MG/DL (70-110)
[2017-03-22] MEDS: INSULIN ASPART 100 UNITS/ML SQ PRN ×3 (06:28→16:38)
[2017-03-22] MEDS: INSULIN ASPART 100 UNITS/ML SQ SCH ×3 (06:28→16:38)
[2017-03-22 08:12] VITALS: BP 115/64
[2017-03-22] MEDS: OMEPRAZOLE 20 MG CAPSULE PO SCH (09:00)
[2017-03-22] MEDS: NICOTINE 21 MG/24 HOUR PATCH TD SCH (09:00)
[2017-03-22] MEDS: LITHIUM CARBONATE 300 MG CAPSULE PO SCH ×2 (09:06→16:36)
[2017-03-22] MEDS: CITALOPRAM HYDROBROMIDE 20 MG TABLET PO SCH (09:06)
[2017-03-22 09:27] LABS: APPEARANCE,URINE CLEAR (CLEAR); GLUCOSE, URINE (UA) 250 mg/dL (NEGATIVE); KETONES,URINE NEGATIVE (NEGATIVE); LEUKOCYTE ESTERASE ,URINE NEGATIVE (NEGATIVE); OCCULT BLOOD,URINE NEGATIVE (NEGATIVE); PROTEIN,URINE NEGATIVE (NEGATIVE)
[2017-03-22 09:33] LABS: ADD UA MICROSCOPIC YES
[2017-03-22 09:59] LABS: RBC,URINE 0-2 /HPF (0-2); SQUAMOUS EPITHELIAL CELL,UR Rare /LPF (None Seen); WBC,URINE None Seen /HPF (0-5)
[2017-03-22 11:12] LABS: GLUCOSE,POINT OF CARE 140 MG/DL (70-110)
[2017-03-22 16:00] VITALS: BP 133/76
[2017-03-22 17:07] LABS: GLUCOSE COMMENT 1 Received Meds; GLUCOSE,POINT OF CARE 356 MG/DL (70-110)
[2017-03-22] MEDS: QUEtiapine FUMARATE 100 MG TABLET PO PRN (17:57)
[2017-03-22] MEDS: IBUPROFEN 600 MG TABLET PO PRN (18:23)
[2017-03-22] MEDS: SIMVASTATIN 10 MG TABLET PO SCH (20:53)
[2017-03-22] MEDS: INSULIN DETEMIR 100 UNITS/ML SQ SCH (21:00)
[2017-03-22 22:17] LABS: GLUCOSE COMMENT 1 Doctor Notified; GLUCOSE,POINT OF CARE 99 MG/DL (70-110)
[2017-03-22 22:17] LABS: GLUCOSE COMMENT 1 Doctor Notified; GLUCOSE,POINT OF CARE 66 MG/DL (70-110)
[2017-03-22 22:17] LABS: GLUCOSE COMMENT 1 Doctor Notified; GLUCOSE,POINT OF CARE 53 MG/DL (70-110)
[2017-03-23 06:28] LABS: GLUCOSE COMMENT 1 Received Meds; GLUCOSE,POINT OF CARE 421 MG/DL (70-110)
[2017-03-23] MEDS: INSULIN ASPART 100 UNITS/ML SQ SCH ×4 (06:30→16:37)
[2017-03-23] MEDS ORDERED: INSULIN ASPART 100 UNITS/ML SQ ONE ×2 (07:00→09:45)
[2017-03-23 07:25] VITALS: BP 113/86
[2017-03-23 08:10] VITALS: BP 120/74
[2017-03-23] MEDS: OMEPRAZOLE 20 MG CAPSULE PO SCH (08:40)
[2017-03-23] MEDS: LITHIUM CARBONATE 300 MG CAPSULE PO SCH ×2 (08:40→16:34)
[2017-03-23] MEDS: CITALOPRAM HYDROBROMIDE 20 MG TABLET PO SCH (08:40)
[2017-03-23] MEDS: NICOTINE 21 MG/24 HOUR PATCH TD SCH (08:41)
[2017-03-23 09:51] LABS: GLUCOSE COMMENT 1 Post Meal; GLUCOSE COMMENT 2 Doctor Notified; GLUCOSE,POINT OF CARE 441 MG/DL (70-110)
[2017-03-23 10:51] LABS: GLUCOSE COMMENT 1 Doctor Notified; GLUCOSE,POINT OF CARE 315 MG/DL (70-110)
[2017-03-23 11:47] LABS: GLUCOSE COMMENT 1 Doctor Notified; GLUCOSE,POINT OF CARE 216 MG/DL (70-110)
[2017-03-23 14:17] LABS: GLUCOSE COMMENT 1 Doctor Notified; GLUCOSE,POINT OF CARE 49 MG/DL (70-110)
[2017-03-23 15:01] LABS: GLUCOSE COMMENT 1 Doctor Notified; GLUCOSE,POINT OF CARE 117 MG/DL (70-110)
[2017-03-23 16:00] VITALS: BP 116/73
[2017-03-23] MEDS: INSULIN ASPART 100 UNITS/ML SQ PRN ×2 (16:37→20:57)
[2017-03-23 17:07] LABS: GLUCOSE COMMENT 1 Received Meds; GLUCOSE,POINT OF CARE 288 MG/DL (70-110)
[2017-03-23] MEDS: IBUPROFEN 600 MG TABLET PO PRN (18:24)
[2017-03-23] MEDS: SIMVASTATIN 10 MG TABLET PO SCH (20:55)
[2017-03-23] MEDS: INSULIN DETEMIR 100 UNITS/ML SQ SCH (20:57)
[2017-03-23 21:06] LABS: GLUCOSE COMMENT 1 Received Meds; GLUCOSE,POINT OF CARE 122 MG/DL (70-110)
[2017-03-23] MEDS: ZOLPIDEM TARTRATE 10 MG TABLET PO PRN (21:24)
[2017-03-24 06:37] LABS: GLUCOSE,POINT OF CARE 145 MG/DL (70-110)
[2017-03-24] MEDS: INSULIN ASPART 100 UNITS/ML SQ PRN ×3 (06:42→20:59)
[2017-03-24] MEDS: INSULIN ASPART 100 UNITS/ML SQ SCH ×3 (06:43→16:51)
[2017-03-24 06:59] VITALS: BP 117/71
[2017-03-24 08:20] VITALS: BP 119/68
[2017-03-24] MEDS: LITHIUM CARBONATE 300 MG CAPSULE PO SCH ×2 (08:39→16:49)
[2017-03-24] MEDS: OMEPRAZOLE 20 MG CAPSULE PO SCH (08:39)
[2017-03-24] MEDS: CITALOPRAM HYDROBROMIDE 20 MG TABLET PO SCH (08:39)
[2017-03-24] MEDS: NICOTINE 21 MG/24 HOUR PATCH TD SCH (08:42)
[2017-03-24 10:57] LABS: GLUCOSE,POINT OF CARE 176 MG/DL (70-110)
[2017-03-24] MEDS: IBUPROFEN 600 MG TABLET PO PRN ×2 (11:23→19:28)
[2017-03-24 16:00] VITALS: BP 126/81
[2017-03-24 17:27] LABS: GLUCOSE COMMENT 1 Received Meds; GLUCOSE,POINT OF CARE 287 MG/DL (70-110)
[2017-03-24] MEDS: ZOLPIDEM TARTRATE 10 MG TABLET PO PRN (20:56)
[2017-03-24] MEDS: SIMVASTATIN 10 MG TABLET PO SCH (20:56)
[2017-03-24] MEDS: INSULIN DETEMIR 100 UNITS/ML SQ SCH (21:00)
[2017-03-24] MEDS: HydrOXYzine PAMOATE 50 MG CAPSULE PO PRN (21:36)
[2017-03-24 21:48] LABS: GLUCOSE COMMENT 1 Received Meds; GLUCOSE,POINT OF CARE 135 MG/DL (70-110)
[2017-03-25 06:28] VITALS: BP 130/74
[2017-03-25] MEDS: INSULIN ASPART 100 UNITS/ML SQ SCH ×3 (06:30→16:34)
[2017-03-25 07:17] LABS: GLUCOSE COMMENT 1 Juice/Food/D50 Given; GLUCOSE COMMENT 2 Doctor Notified; GLUCOSE,POINT OF CARE 67 MG/DL (70-110)
[2017-03-25 07:17] LABS: GLUCOSE COMMENT 1 Doctor Notified; GLUCOSE,POINT OF CARE 159 MG/DL (70-110)
[2017-03-25] MEDS: NICOTINE 21 MG/24 HOUR PATCH TD SCH (09:00)
[2017-03-25] MEDS: CITALOPRAM HYDROBROMIDE 20 MG TABLET PO SCH (09:00)
[2017-03-25] MEDS: LITHIUM CARBONATE 300 MG CAPSULE PO SCH ×2 (09:00→16:08)
[2017-03-25] MEDS: OMEPRAZOLE 20 MG CAPSULE PO SCH (09:00)
[2017-03-25 09:18] VITALS: BP 112/68
[2017-03-25 10:27] LABS: GLUCOSE,POINT OF CARE 334 MG/DL (70-110)
[2017-03-25] MEDS: INSULIN ASPART 100 UNITS/ML SQ PRN ×2 (11:35→16:34)
[2017-03-25] MEDS ORDERED: CITALOPRAM HYDROBROMIDE 10 MG TABLET PO ONE (13:30)
[2017-03-25 16:12] LABS: GLUCOSE COMMENT 1 Received Meds; GLUCOSE,POINT OF CARE 188 MG/DL (70-110)
[2017-03-25 17:27] VITALS: BP 134/79
[2017-03-25] MEDS: SIMVASTATIN 10 MG TABLET PO SCH (20:08)
[2017-03-25 20:12] LABS: GLUCOSE,POINT OF CARE 140 MG/DL (70-110)
[2017-03-25] MEDS: ZOLPIDEM TARTRATE 10 MG TABLET PO PRN (20:27)
[2017-03-25] MEDS: INSULIN DETEMIR 100 UNITS/ML SQ SCH (20:28)
[2017-03-26 06:02] LABS: GLUCOSE COMMENT 1 Received Meds; GLUCOSE,POINT OF CARE 152 MG/DL (70-110)
[2017-03-26 06:37] VITALS: BP 121/69
[2017-03-26] MEDS: INSULIN ASPART 100 UNITS/ML SQ SCH (06:40)
[2017-03-26] MEDS: INSULIN ASPART 100 UNITS/ML SQ PRN (06:40)
[2017-03-26] MEDS: LITHIUM CARBONATE 300 MG CAPSULE PO SCH (08:19)
[2017-03-26] MEDS: OMEPRAZOLE 20 MG CAPSULE PO SCH (08:19)
[2017-03-26 08:31] VITALS: BP 124/74
[2017-03-26] MEDS ORDERED: CITALOPRAM HYDROBROMIDE 20 MG TABLET PO SCH (09:00)
[2017-03-26] MEDS: NICOTINE 21 MG/24 HOUR PATCH TD SCH (09:00)
[2017-03-26] MEDS ORDERED: OMEP20 PO (10:18)
== END 2017-03-26 11:30 | disposition home or self-care (01) | DRG 753 ==
LOC: EDSTATUS 23:51 → B3A 03-12 01:15
PROVIDERS: ADMIT Psychiatry & Neurology Psychiatry; ATTEND Psychiatry & Neurology Psychiatry
DX: F31.4 Bipolar disorder, current episode depressed, severe, without psychotic features (principal); R45.851 Suicidal ideations; E10.65 Type 1 diabetes mellitus with hyperglycemia; I10 Essential (primary) hypertension; F15.10 Other stimulant abuse, uncomplicated; F17.200 Nicotine dependence, unspecified, uncomplicated; G47.00 Insomnia, unspecified; K59.00 Constipation, unspecified; Z79.4 Long term (current) use of insulin; Z95.0 Presence of cardiac pacemaker; M54.2 Cervicalgia; M79.671 Pain in right foot; Z71.51 Drug abuse counseling and surveillance of drug abuser; Z71.6 Tobacco abuse counseling; Z56.0 Unemployment, unspecified; I49.9 Cardiac arrhythmia, unspecified
CPT/HCPCS: 80307; 82962; 83036; 84436; 84439; 84443; 87081; 99285; G0480; J1815

== ENCOUNTER 2017-04-12 11:37 | Emergency (ER) | payer MEDICAID, OTHER ==
[~2017-04-12] VITALS: Ht 167.6 cm; Wt 70.9 kg
[~2017-04-12 11:37] MED LIST changes: +OMEP20 PO
[2017-04-12] MEDS ORDERED: INSLAN SQ (13:08)
[2017-04-12] MEDS ORDERED: VIST50 PO (13:08)
[2017-04-12] MEDS ORDERED: VENL-68 PO (13:08)
[2017-04-12 13:48] LABS: BASOPHILS % (AUTO) 0.3 % (0.0-2.0); EOSINOPHILS % (AUTO) 0.8 % (1.0-6.0); HEMATOCRIT 44.5 % (41-53); LYMPHOCYTES # (AUTO) 0.8 K/uL (1.0-4.8); LYMPHOCYTES % (AUTO) 13.7 % (22.0-44.0); MEAN CORPUSCULAR HEMOGLOBIN 30.5 pg (26.0-34.0); MEAN CORPUSCULAR HGB CONC 33.8 G/dL (31.0-37.0); MEAN CORPUSCULAR VOLUME 90 fL (80-100); MONOCYTES # (AUTO) 0.5 K/uL (0.1-1.0); MONOCYTES % (AUTO) 7.9 % (2.0-9.0); NEUTROPHILS # (AUTO) 4.6 K/uL (1.8-7.7); NEUTROPHILS % (AUTO) 77.3 % (40.0-70.0); PLATELET COUNT (AUTO) 200 K/uL (150-450); RED BLOOD CELL COUNT(AUTO) 4.92 MIL/uL (4.50-5.90); RED CELL DISTRIBUTION WIDTH 13.5 % (11.5-14.5)
[2017-04-12 14:12] LABS: ANION GAP 7 mmol/L (8-16); CARBON DIOXIDE 29 mmol/L (22-29); CHLORIDE 104 mmol/L (98-107); CREATININE 0.82 mg/dL (0.60-1.30); GLOMERULAR FILTR. RATE CALC > 60 mL/min (>60); POTASSIUM 4.4 mmol/L (3.5-5.1); SODIUM SERUM 140 mmol/L (136-145); UREA NITROGEN, BLOOD 13 mg/dL (7-18)
[2017-04-12 14:16] LABS: ALANINE AMINOTRANSFERASE 70 U/L (12-78); ALBUMIN 3.7 g/dL (3.4-5.0); ASPARTATE AMINOTRANSFERASE 33 U/L (15-37); BILIRUBIN,TOTAL 0.4 mg/dL (0.1-1.0); TOTAL PROTEIN, SERUM 7.2 g/dL (6.4-8.2)
[2017-04-12 16:53] LABS: GLUCOSE COMMENT 2 Juice/Food/D50 Given; GLUCOSE,POINT OF CARE 42 MG/DL (70-110)
[2017-04-12 17:22] LABS: GLUCOSE,POINT OF CARE 67 MG/DL (70-110)
[2017-04-12 19:11] VITALS: BP 113/73
[2017-04-12 19:13] LABS: GLUCOSE COMMENT 1 Doctor Notified; GLUCOSE,POINT OF CARE 229 MG/DL (70-110)
== END 2017-04-12 19:18 | disposition home or self-care (01) ==
LOC: EMS 11:42
DX: F32.9 Major depressive disorder, single episode, unspecified (principal); F41.9 Anxiety disorder, unspecified; E11.9 Type 2 diabetes mellitus without complications; E78.00 Pure hypercholesterolemia, unspecified; I10 Essential (primary) hypertension; F15.90 Other stimulant use, unspecified, uncomplicated; F17.210 Nicotine dependence, cigarettes, uncomplicated; Z59.0 Homelessness; Z79.4 Long term (current) use of insulin
CPT/HCPCS: 36415; 80053; 82962; 85025; 99284; 99406; G0480

== ENCOUNTER 2017-04-13 06:02 | Inpatient (IN) | payer MEDICAID, OTHER ==
[~2017-04-13] VITALS: Ht 167.6 cm; Wt 72.1 kg
[~2017-04-13 06:02] MED LIST changes: -CITA20TA9 PO; +INSLAN SQ; -INSU100V12 SQ; -LITH300C3 PO; +VENL-68 PO; +VIST50 PO
[2017-04-13 06:48] LABS: BASOPHILS % (AUTO) 0.4 % (0.0-2.0); EOSINOPHILS % (AUTO) 1.1 % (1.0-6.0); HEMATOCRIT 46.9 % (41-53); HEMOGLOBIN 15.9 g/dL (13.5-17.5); LYMPHOCYTES # (AUTO) 0.8 K/uL (1.0-4.8); LYMPHOCYTES % (AUTO) 15.4 % (22.0-44.0); MEAN CORPUSCULAR HEMOGLOBIN 30.5 pg (26.0-34.0); MEAN CORPUSCULAR HGB CONC 33.9 G/dL (31.0-37.0); MEAN CORPUSCULAR VOLUME 90 fL (80-100); MONOCYTES # (AUTO) 0.5 K/uL (0.1-1.0); MONOCYTES % (AUTO) 9.5 % (2.0-9.0); NEUTROPHILS # (AUTO) 3.7 K/uL (1.8-7.7); NEUTROPHILS % (AUTO) 73.6 % (40.0-70.0); PLATELET COUNT (AUTO) 190 K/uL (150-450); RED BLOOD CELL COUNT(AUTO) 5.22 MIL/uL (4.50-5.90); RED CELL DISTRIBUTION WIDTH 13.7 % (11.5-14.5)
[2017-04-13 07:20] LABS: ANION GAP 10 mmol/L (8-16); CALCIUM, TOTAL 9.2 mg/dL (8.8-10.5); CARBON DIOXIDE 29 mmol/L (22-29); CHLORIDE 101 mmol/L (98-107); GLOMERULAR FILTR. RATE CALC > 60 mL/min (>60); GLUCOSE,RANDOM 199 mg/dL (70-110); POTASSIUM 4.2 mmol/L (3.5-5.1); SODIUM SERUM 140 mmol/L (136-145); UREA NITROGEN, BLOOD 15 mg/dL (7-18)
[2017-04-13 07:26] LABS: ALANINE AMINOTRANSFERASE 84 U/L (12-78); ALBUMIN 3.9 g/dL (3.4-5.0); ALKALINE PHOSPHATASE 87 U/L (46-116); ASPARTATE AMINOTRANSFERASE 34 U/L (15-37); BILIRUBIN,TOTAL 0.6 mg/dL (0.1-1.0); TOTAL PROTEIN, SERUM 7.8 g/dL (6.4-8.2)
[2017-04-13] MEDS ORDERED: FLUORESCEIN SODIUM 1 MG STRIP ONE (09:03)
[2017-04-13] MEDS: VENLAFAXINE HCL 150 MG ER CAPSULE PO SCH (10:32)
[2017-04-13 11:12] LABS: GLUCOMETER DEV NAME(LOC) 3EI B; GLUCOSE,POINT OF CARE 164 MG/DL (70-110)
[2017-04-13] MEDS ORDERED: INSULIN REGULAR, HUMAN 100 UNITS/ML SQ PRN (11:15)
[2017-04-13] MEDS: LORazepam 2 MG TABLET PO PRN (11:30)
[2017-04-13] MEDS ORDERED: DEXTROSE 50%-WATER 25 GM/50 ML SYRINGE IVP PRN ×2 (11:45→12:15)
[2017-04-13] MEDS ORDERED: -PHARMACY VACCINE NOTE- MISC ONE (12:45)
[2017-04-13] MEDS ORDERED: INFLUENZA VIRUS VACCINE QVS 2017-18 (3YR+)/PF 60 MCG/0.5 ML SYRINGE IM ONE (12:45)
[2017-04-13] MEDS: INSULIN ASPART 100 UNITS/ML SQ SCH ×2 (13:01→17:50)
[2017-04-13] MEDS: INSULIN ASPART 100 UNITS/ML SQ PRN ×3 (13:02→21:41)
[2017-04-13 13:57] VITALS: BP 134/92
[2017-04-13 16:15] VITALS: BP 117/63
[2017-04-13 17:12] LABS: GLUCOMETER DEV NAME(LOC) 3EI B; GLUCOSE,POINT OF CARE 261 MG/DL (70-110)
[2017-04-13 20:47] LABS: GLUCOMETER DEV NAME(LOC) 3EI B; GLUCOSE,POINT OF CARE 54 MG/DL (70-110)
[2017-04-13] MEDS: INSULIN DETEMIR 100 UNITS/ML SQ SCH (21:40)
[2017-04-13 21:42] LABS: GLUCOMETER DEV NAME(LOC) 3EI B; GLUCOSE,POINT OF CARE 182 MG/DL (70-110)
[2017-04-13] MEDS: ZOLPIDEM TARTRATE 10 MG TABLET PO PRN (21:44)
[2017-04-14 06:38] LABS: GLUCOMETER DEV NAME(LOC) 3EI B; GLUCOSE,POINT OF CARE 101 MG/DL (70-110)
[2017-04-14] MEDS: INSULIN ASPART 100 UNITS/ML SQ SCH ×3 (06:53→17:38)
[2017-04-14 08:05] VITALS: BP 103/62
[2017-04-14 11:23] LABS: GLUCOMETER DEV NAME(LOC) 3EI B; GLUCOSE,POINT OF CARE 205 MG/DL (70-110)
[2017-04-14] MEDS: VENLAFAXINE HCL 150 MG ER CAPSULE PO SCH (11:27)
[2017-04-14] MEDS: INSULIN ASPART 100 UNITS/ML SQ PRN ×2 (11:36→17:39)
[2017-04-14] MEDS ORDERED: ACETAMINOPHEN 325 MG TABLET PO PRN (15:30)
[2017-04-14] MEDS ORDERED: ONDANSETRON HCL 4 MG TABLET PO PRN (15:30)
[2017-04-14] MEDS ORDERED: ALBUTEROL SULFATE HFA 90 MCG/PUFF 8 GM INHALER IH PRN (15:30)
[2017-04-14] MEDS ORDERED: MAGNESIUM HYDROXIDE SUSPENSION 30 ML UDCUP PO PRN (15:30)
[2017-04-14] MEDS ORDERED: CloNIDine HCL 0.1 MG TABLET PO PRN (15:30)
[2017-04-14] MEDS ORDERED: LOPERAMIDE HCL 2 MG CAPSULE PO PRN (15:30)
[2017-04-14] MEDS ORDERED: BACITRACIN 28.4 GM OINTMENT TP PRN (15:30)
[2017-04-14] MEDS ORDERED: BENZOCAINE/MENTHOL LOZENGE [8 LOZENGES/PACKET] MM PRN (15:30)
[2017-04-14] MEDS ORDERED: PETROLATUM,WHITE 71 GM JELLY TP PRN (15:30)
[2017-04-14 17:42] LABS: GLUCOMETER DEV NAME(LOC) 3EI B; GLUCOSE,POINT OF CARE 141 MG/DL (70-110)
[2017-04-14 20:37] LABS: GLUCOMETER DEV NAME(LOC) 3EI B; GLUCOSE,POINT OF CARE 114 MG/DL (70-110)
[2017-04-14] MEDS: INSULIN DETEMIR 100 UNITS/ML SQ SCH (21:14)
[2017-04-15 05:42] LABS: GLUCOMETER DEV NAME(LOC) 3EI B; GLUCOSE,POINT OF CARE 333 MG/DL (70-110)
[2017-04-15] MEDS: INSULIN ASPART 100 UNITS/ML SQ PRN ×4 (07:24→20:45)
[2017-04-15] MEDS: INSULIN ASPART 100 UNITS/ML SQ SCH ×3 (07:25→17:35)
[2017-04-15 08:15] VITALS: BP 134/78
[2017-04-15] MEDS: VENLAFAXINE HCL 150 MG ER CAPSULE PO SCH (08:33)
[2017-04-15 10:57] LABS: GLUCOMETER DEV NAME(LOC) 3EI B; GLUCOSE,POINT OF CARE 216 MG/DL (70-110)
[2017-04-15 16:15] VITALS: BP 142/87
[2017-04-15] MEDS: MAG HYDROX/AL HYDROX/SIMETH ES 30 ML SUSPENSION UDCUP PO PRN (16:16)
[2017-04-15 16:48] LABS: GLUCOMETER DEV NAME(LOC) 3EI B; GLUCOSE,POINT OF CARE 222 MG/DL (70-110)
[2017-04-15 20:37] LABS: GLUCOMETER DEV NAME(LOC) 3EI B; GLUCOSE,POINT OF CARE 188 MG/DL (70-110)
[2017-04-15] MEDS: INSULIN DETEMIR 100 UNITS/ML SQ SCH (20:44)
[2017-04-16] MEDS: MAG HYDROX/AL HYDROX/SIMETH ES 30 ML SUSPENSION UDCUP PO PRN (04:45)
[2017-04-16 04:46] VITALS: BP 105/68
[2017-04-16 05:53] LABS: GLUCOMETER DEV NAME(LOC) 3EI B; GLUCOSE,POINT OF CARE 300 MG/DL (70-110)
[2017-04-16] MEDS: INSULIN ASPART 100 UNITS/ML SQ SCH ×3 (07:01→17:46)
[2017-04-16] MEDS: INSULIN ASPART 100 UNITS/ML SQ PRN ×4 (07:02→21:12)
[2017-04-16] MEDS: VENLAFAXINE HCL 150 MG ER CAPSULE PO SCH (08:39)
[2017-04-16 08:43] VITALS: BP 126/81
[2017-04-16 11:17] LABS: GLUCOMETER DEV NAME(LOC) 3EI B; GLUCOSE,POINT OF CARE 138 MG/DL (70-110)
[2017-04-16] MEDS: IBUPROFEN 600 MG TABLET PO PRN (15:59)
[2017-04-16 16:01] VITALS: BP 118/81
[2017-04-16 17:22] LABS: GLUCOMETER DEV NAME(LOC) 3EI B; GLUCOSE,POINT OF CARE 164 MG/DL (70-110)
[2017-04-16] MEDS: ZOLPIDEM TARTRATE 10 MG TABLET PO PRN (20:45)
[2017-04-16 20:47] LABS: GLUCOMETER DEV NAME(LOC) 3EI B; GLUCOSE,POINT OF CARE 353 MG/DL (70-110)
[2017-04-16] MEDS: INSULIN DETEMIR 100 UNITS/ML SQ SCH (21:08)
[2017-04-17 05:53] LABS: GLUCOMETER DEV NAME(LOC) 3EI B; GLUCOSE,POINT OF CARE 102 MG/DL (70-110)
[2017-04-17] MEDS: INSULIN ASPART 100 UNITS/ML SQ SCH ×3 (07:07→16:56)
[2017-04-17] MEDS: VENLAFAXINE HCL 150 MG ER CAPSULE PO SCH (08:27)
[2017-04-17 09:04] VITALS: BP 104/61
[2017-04-17 11:18] LABS: GLUCOMETER DEV NAME(LOC) 3EI B; GLUCOSE,POINT OF CARE 81 MG/DL (70-110)
[2017-04-17] MEDS: IBUPROFEN 600 MG TABLET PO PRN (15:00)
[2017-04-17 15:02] VITALS: BP 121/69
[2017-04-17 16:38] VITALS: BP 133/88
[2017-04-17 16:52] LABS: GLUCOMETER DEV NAME(LOC) 3EI B; GLUCOSE,POINT OF CARE 298 MG/DL (70-110)
[2017-04-17 20:52] LABS: GLUCOMETER DEV NAME(LOC) 3EI B; GLUCOSE,POINT OF CARE 358 MG/DL (70-110)
[2017-04-17] MEDS: INSULIN DETEMIR 100 UNITS/ML SQ SCH (21:07)
[2017-04-17] MEDS: INSULIN ASPART 100 UNITS/ML SQ PRN (21:07)
[2017-04-17] MEDS: ZOLPIDEM TARTRATE 10 MG TABLET PO PRN (21:08)
[2017-04-18 04:58] VITALS: BP 139/81
[2017-04-18 06:07] LABS: GLUCOMETER DEV NAME(LOC) 3EI B; GLUCOSE,POINT OF CARE 95 MG/DL (70-110)
[2017-04-18] MEDS: INSULIN ASPART 100 UNITS/ML SQ SCH ×3 (07:10→17:42)
[2017-04-18] MEDS: VENLAFAXINE HCL 150 MG ER CAPSULE PO SCH (08:25)
[2017-04-18 08:30] VITALS: BP 132/91
[2017-04-18 11:22] LABS: GLUCOMETER DEV NAME(LOC) 3EI B; GLUCOSE,POINT OF CARE 140 MG/DL (70-110)
[2017-04-18] MEDS: INSULIN ASPART 100 UNITS/ML SQ PRN ×3 (11:49→21:30)
[2017-04-18] MEDS: IBUPROFEN 600 MG TABLET PO PRN (13:34)
[2017-04-18 16:55] VITALS: BP 148/87
[2017-04-18 17:37] LABS: GLUCOMETER DEV NAME(LOC) 3EI B; GLUCOSE,POINT OF CARE 181 MG/DL (70-110)
[2017-04-18 20:22] LABS: GLUCOMETER DEV NAME(LOC) 3EI B; GLUCOSE,POINT OF CARE 260 MG/DL (70-110)
[2017-04-18] MEDS: INSULIN DETEMIR 100 UNITS/ML SQ SCH (21:30)
[2017-04-18] MEDS: ZOLPIDEM TARTRATE 10 MG TABLET PO PRN (21:35)
[2017-04-18] MEDS: LORazepam 2 MG TABLET PO PRN (23:53)
[2017-04-19 05:28] LABS: GLUCOMETER DEV NAME(LOC) 3EI B; GLUCOSE,POINT OF CARE 112 MG/DL (70-110)
[2017-04-19] MEDS: INSULIN ASPART 100 UNITS/ML SQ SCH ×3 (07:01→17:00)
[2017-04-19 08:00] VITALS: BP 122/75
[2017-04-19] MEDS: VENLAFAXINE HCL 150 MG ER CAPSULE PO SCH (09:13)
[2017-04-19 11:23] LABS: GLUCOMETER DEV NAME(LOC) 3EI B; GLUCOSE,POINT OF CARE 161 MG/DL (70-110)
[2017-04-19] MEDS: INSULIN ASPART 100 UNITS/ML SQ PRN ×2 (11:52→17:30)
[2017-04-19 16:01] VITALS: BP 124/82
[2017-04-19] MEDS: IBUPROFEN 600 MG TABLET PO PRN (16:01)
[2017-04-19 16:43] LABS: GLUCOMETER DEV NAME(LOC) 3EI B; GLUCOSE,POINT OF CARE 382 MG/DL (70-110)
[2017-04-19 16:53] VITALS: BP 117/72
[2017-04-19 20:52] LABS: GLUCOMETER DEV NAME(LOC) 3EI B; GLUCOSE,POINT OF CARE 125 MG/DL (70-110)
[2017-04-19] MEDS: ZOLPIDEM TARTRATE 10 MG TABLET PO PRN (21:33)
[2017-04-19] MEDS: INSULIN DETEMIR 100 UNITS/ML SQ SCH (21:35)
[2017-04-19] MEDS: HALOPERIDOL 5 MG TABLET PO PRN (21:53)
[2017-04-20 06:03] LABS: GLUCOMETER DEV NAME(LOC) 3EI B; GLUCOSE,POINT OF CARE 116 MG/DL (70-110)
[2017-04-20] MEDS: INSULIN ASPART 100 UNITS/ML SQ SCH ×3 (07:05→17:32)
[2017-04-20 08:00] VITALS: BP 111/72
[2017-04-20] MEDS: VENLAFAXINE HCL 150 MG ER CAPSULE PO SCH (08:18)
[2017-04-20 16:15] VITALS: BP 120/74
[2017-04-20 16:28] LABS: GLUCOMETER DEV NAME(LOC) 3EI B; GLUCOSE,POINT OF CARE 128 MG/DL (70-110)
[2017-04-20 20:53] LABS: GLUCOMETER DEV NAME(LOC) 3EI B; GLUCOSE,POINT OF CARE 364 MG/DL (70-110)
[2017-04-20] MEDS: ZOLPIDEM TARTRATE 10 MG TABLET PO PRN (21:21)
[2017-04-20] MEDS: INSULIN DETEMIR 100 UNITS/ML SQ SCH (21:22)
[2017-04-20] MEDS: INSULIN ASPART 100 UNITS/ML SQ PRN (21:24)
[2017-04-20] MEDS: LORazepam 2 MG TABLET PO PRN (22:50)
[2017-04-21 06:03] LABS: GLUCOMETER DEV NAME(LOC) 3EI B; GLUCOSE,POINT OF CARE 116 MG/DL (70-110)
[2017-04-21] MEDS: INSULIN ASPART 100 UNITS/ML SQ SCH ×3 (07:16→16:56)
[2017-04-21] MEDS: INSULIN ASPART 100 UNITS/ML SQ PRN ×3 (07:21→22:08)
[2017-04-21] MEDS: VENLAFAXINE HCL 150 MG ER CAPSULE PO SCH (08:31)
[2017-04-21 08:50] VITALS: BP 134/84
[2017-04-21 11:12] LABS: GLUCOMETER DEV NAME(LOC) 3EI B; GLUCOSE,POINT OF CARE 45 MG/DL (70-110)
[2017-04-21 11:43] LABS: GLUCOMETER DEV NAME(LOC) 3EI B; GLUCOSE,POINT OF CARE 119 MG/DL (70-110)
[2017-04-21] MEDS: IBUPROFEN 600 MG TABLET PO PRN (13:51)
[2017-04-21] MEDS: HALOPERIDOL 5 MG TABLET PO PRN (14:16)
[2017-04-21 17:03] LABS: GLUCOMETER DEV NAME(LOC) 3EI B; GLUCOSE,POINT OF CARE 302 MG/DL (70-110)
[2017-04-21 17:09] VITALS: BP 120/66
[2017-04-21 17:38] LABS: GLUCOMETER DEV NAME(LOC) 3EI B; GLUCOSE,POINT OF CARE 360 MG/DL (70-110)
[2017-04-21] MEDS: INSULIN DETEMIR 100 UNITS/ML SQ SCH (21:07)
[2017-04-21 21:13] LABS: GLUCOMETER DEV NAME(LOC) 3EI B; GLUCOSE,POINT OF CARE 225 MG/DL (70-110)
[2017-04-21] MEDS: ZOLPIDEM TARTRATE 10 MG TABLET PO PRN (21:43)
[2017-04-22 06:23] LABS: GLUCOMETER DEV NAME(LOC) 3EI B; GLUCOSE,POINT OF CARE 42 MG/DL (70-110)
[2017-04-22 06:57] LABS: GLUCOMETER DEV NAME(LOC) 3EI B; GLUCOSE,POINT OF CARE 99 MG/DL (70-110)
[2017-04-22] MEDS: INSULIN ASPART 100 UNITS/ML SQ SCH ×3 (07:00→17:04)
[2017-04-22] MEDS: VENLAFAXINE HCL 150 MG ER CAPSULE PO SCH (09:13)
[2017-04-22] MEDS: INSULIN ASPART 100 UNITS/ML SQ PRN ×3 (11:57→21:05)
[2017-04-22 11:58] LABS: GLUCOMETER DEV NAME(LOC) 3EI B; GLUCOSE,POINT OF CARE 117 MG/DL (70-110)
[2017-04-22] MEDS: IBUPROFEN 600 MG TABLET PO PRN (16:00)
[2017-04-22 17:03] LABS: GLUCOMETER DEV NAME(LOC) 3EI B; GLUCOSE,POINT OF CARE 196 MG/DL (70-110)
[2017-04-22 20:27] LABS: GLUCOMETER DEV NAME(LOC) 3EI B; GLUCOSE,POINT OF CARE 222 MG/DL (70-110)
[2017-04-22] MEDS: INSULIN DETEMIR 100 UNITS/ML SQ SCH (21:06)
[2017-04-22] MEDS: ZOLPIDEM TARTRATE 10 MG TABLET PO PRN (22:04)
[2017-04-22 23:47] LABS: GLUCOMETER DEV NAME(LOC) 3EI B; GLUCOSE,POINT OF CARE 55 MG/DL (70-110)
[2017-04-23 00:30] VITALS: BP 125/81
[2017-04-23] MEDS: IBUPROFEN 600 MG TABLET PO PRN ×3 (00:32→20:16)
[2017-04-23 05:52] LABS: GLUCOMETER DEV NAME(LOC) 3EI B; GLUCOSE,POINT OF CARE 207 MG/DL (70-110)
[2017-04-23] MEDS: INSULIN ASPART 100 UNITS/ML SQ SCH ×2 (07:20→11:30)
[2017-04-23] MEDS: INSULIN ASPART 100 UNITS/ML SQ PRN ×2 (07:21→21:06)
[2017-04-23] MEDS: LORazepam 2 MG TABLET PO PRN (07:53)
[2017-04-23 08:15] VITALS: BP 128/79
[2017-04-23] MEDS: VENLAFAXINE HCL 150 MG ER CAPSULE PO SCH (08:21)
[2017-04-23 10:57] LABS: GLUCOMETER DEV NAME(LOC) 3EI B; GLUCOSE,POINT OF CARE 38 MG/DL (70-110)
[2017-04-23 11:28] LABS: GLUCOMETER DEV NAME(LOC) 3EI B; GLUCOSE,POINT OF CARE 118 MG/DL (70-110)
[2017-04-23 17:28] LABS: GLUCOMETER DEV NAME(LOC) 3EI B; GLUCOSE,POINT OF CARE 462 MG/DL (70-110)
[2017-04-23] MEDS ORDERED: INSULIN ASPART 100 UNITS/ML SQ ONE (17:30)
[2017-04-23 20:17] VITALS: BP 157/87
[2017-04-23] MEDS: INSULIN DETEMIR 100 UNITS/ML SQ SCH (21:05)
[2017-04-23 21:08] LABS: GLUCOMETER DEV NAME(LOC) 3EI B; GLUCOSE,POINT OF CARE 347 MG/DL (70-110)
[2017-04-23] MEDS: ZOLPIDEM TARTRATE 10 MG TABLET PO PRN (21:28)
[2017-04-24] VITALS: BP 132/83
[2017-04-24] MEDS: LORazepam 2 MG TABLET PO PRN ×3 (00:02→22:46)
[2017-04-24 06:03] LABS: GLUCOMETER DEV NAME(LOC) 3EI B; GLUCOSE,POINT OF CARE 87 MG/DL (70-110)
[2017-04-24] MEDS: INSULIN ASPART 100 UNITS/ML SQ SCH ×2 (07:07→17:05)
[2017-04-24] MEDS: VENLAFAXINE HCL 150 MG ER CAPSULE PO SCH (08:19)
[2017-04-24] MEDS: IBUPROFEN 600 MG TABLET PO PRN (08:19)
[2017-04-24 08:20] VITALS: BP 144/88
[2017-04-24 11:28] LABS: GLUCOMETER DEV NAME(LOC) 3EI B; GLUCOSE,POINT OF CARE 113 MG/DL (70-110)
[2017-04-24 17:08] LABS: GLUCOMETER DEV NAME(LOC) 3EI B; GLUCOSE,POINT OF CARE 288 MG/DL (70-110)
[2017-04-24 17:37] VITALS: BP 123/77
[2017-04-24] MEDS: INSULIN ASPART 100 UNITS/ML SQ PRN (21:10)
[2017-04-24] MEDS: INSULIN DETEMIR 100 UNITS/ML SQ SCH (21:10)
[2017-04-24 21:13] LABS: GLUCOMETER DEV NAME(LOC) 3EI B; GLUCOSE,POINT OF CARE 175 MG/DL (70-110)
[2017-04-24] MEDS: ZOLPIDEM TARTRATE 10 MG TABLET PO PRN (22:46)
[2017-04-25 02:39] VITALS: BP 131/76
[2017-04-25 05:53] LABS: GLUCOMETER DEV NAME(LOC) 3EI B; GLUCOSE,POINT OF CARE 248 MG/DL (70-110)
[2017-04-25] MEDS: INSULIN ASPART 100 UNITS/ML SQ SCH ×2 (07:09→17:36)
[2017-04-25] MEDS: INSULIN ASPART 100 UNITS/ML SQ PRN ×3 (07:10→21:33)
[2017-04-25] MEDS: VENLAFAXINE HCL 150 MG ER CAPSULE PO SCH (08:03)
[2017-04-25 11:37] LABS: GLUCOMETER DEV NAME(LOC) 3EI B; GLUCOSE,POINT OF CARE 157 MG/DL (70-110)
[2017-04-25 12:24] VITALS: BP 116/69
[2017-04-25 15:28] VITALS: BP 120/70
[2017-04-25] MEDS: IBUPROFEN 600 MG TABLET PO PRN ×2 (15:28→21:40)
[2017-04-25 16:53] LABS: GLUCOMETER DEV NAME(LOC) 3EI B; GLUCOSE,POINT OF CARE 88 MG/DL (70-110)
[2017-04-25 17:00] VITALS: BP 117/84
[2017-04-25 21:02] LABS: GLUCOMETER DEV NAME(LOC) 3EI B; GLUCOSE,POINT OF CARE 161 MG/DL (70-110)
[2017-04-25] MEDS: INSULIN DETEMIR 100 UNITS/ML SQ SCH (21:34)
[2017-04-25] MEDS: ZOLPIDEM TARTRATE 10 MG TABLET PO PRN (22:54)
[2017-04-26] MEDS: LORazepam 2 MG TABLET PO PRN (00:23)
[2017-04-26 01:26] VITALS: BP 139/88
[2017-04-26] MEDS: INSULIN ASPART 100 UNITS/ML SQ SCH ×2 (07:15→17:45)
[2017-04-26 08:10] VITALS: BP 99/61
[2017-04-26] MEDS: VENLAFAXINE HCL 150 MG ER CAPSULE PO SCH (08:43)
[2017-04-26 11:27] LABS: GLUCOMETER DEV NAME(LOC) 3EI B; GLUCOSE,POINT OF CARE 70 MG/DL (70-110)
[2017-04-26 16:13] LABS: GLUCOMETER DEV NAME(LOC) 3EI B; GLUCOSE,POINT OF CARE 206 MG/DL (70-110)
[2017-04-26 17:15] VITALS: BP 121/89
[2017-04-26] MEDS: INSULIN ASPART 100 UNITS/ML SQ PRN ×2 (17:47→21:10)
[2017-04-26 20:38] LABS: GLUCOMETER DEV NAME(LOC) 3EI B; GLUCOSE,POINT OF CARE 289 MG/DL (70-110)
[2017-04-26] MEDS: INSULIN DETEMIR 100 UNITS/ML SQ SCH (21:11)
[2017-04-26] MEDS: ZOLPIDEM TARTRATE 10 MG TABLET PO PRN (22:15)
[2017-04-27 00:12] VITALS: BP 129/85
[2017-04-27] MEDS: LORazepam 2 MG TABLET PO PRN (00:14)
[2017-04-27 06:03] LABS: GLUCOMETER DEV NAME(LOC) 3EI B; GLUCOSE,POINT OF CARE 151 MG/DL (70-110)
[2017-04-27] MEDS: INSULIN ASPART 100 UNITS/ML SQ SCH (07:12)
[2017-04-27] MEDS: INSULIN ASPART 100 UNITS/ML SQ PRN (07:14)
[2017-04-27] MEDS: VENLAFAXINE HCL 150 MG ER CAPSULE PO SCH (10:13)
[2017-04-27] MEDS ORDERED: INSU100V12 SQ (10:21)
== END 2017-04-27 11:20 | disposition home or self-care (01) | DRG 753 ==
LOC: EMS 06:03 → 3EI 08:54
PROVIDERS: ADMIT Psychiatry & Neurology Psychiatry; ATTEND Psychiatry & Neurology Psychiatry
DX: F31.9 Bipolar disorder, unspecified (principal); R45.851 Suicidal ideations; E10.65 Type 1 diabetes mellitus with hyperglycemia; F17.200 Nicotine dependence, unspecified, uncomplicated; F22 Delusional disorders; G47.00 Insomnia, unspecified; I10 Essential (primary) hypertension; I49.9 Cardiac arrhythmia, unspecified; K21.9 Gastro-esophageal reflux disease without esophagitis; K59.00 Constipation, unspecified; T38.3X1A Poisoning by insulin and oral hypoglycemic [antidiabetic] drugs, accidental (unintentional), initial encounter; Z71.6 Tobacco abuse counseling; Z79.4 Long term (current) use of insulin; Z95.0 Presence of cardiac pacemaker; Z28.21 Immunization not carried out because of patient refusal
CPT/HCPCS: 82962; 87081; 99285; G0480; J1815

== ENCOUNTER 2017-04-27 11:35 | Inpatient (IN) | payer MEDICAID, OTHER ==
[~2017-04-27] VITALS: Ht 167.6 cm; Wt 70.8 kg
[~2017-04-27 11:35] MED LIST changes: +INSU100V12 SQ
[2017-04-27 11:53] LABS: GLUCOSE,POINT OF CARE 185 MG/DL (70-110)
[2017-04-27] MEDS ORDERED: DEXTROSE 5%-0.9% SODIUM CHL 1,000 ML IV ONE (12:45)
[2017-04-27] MEDS ORDERED: DEXTROSE 50%-WATER 25 GM/50 ML SYRINGE IVP ONE ×3 (12:45→16:15)
[2017-04-27 13:28] LABS: BASOPHILS % (AUTO) 0.6 % (0.0-2.0); EOSINOPHILS % (AUTO) 1.1 % (1.0-6.0); HEMATOCRIT 43.2 % (41-53); HEMOGLOBIN 14.9 g/dL (13.5-17.5); LYMPHOCYTES # (AUTO) 0.8 K/uL (1.0-4.8); LYMPHOCYTES % (AUTO) 19.8 % (22.0-44.0); MEAN CORPUSCULAR HEMOGLOBIN 30.5 pg (26.0-34.0); MEAN CORPUSCULAR HGB CONC 34.4 G/dL (31.0-37.0); MEAN CORPUSCULAR VOLUME 89 fL (80-100); MONOCYTES # (AUTO) 0.3 K/uL (0.1-1.0); MONOCYTES % (AUTO) 7.1 % (2.0-9.0); NEUTROPHILS # (AUTO) 2.9 K/uL (1.8-7.7); NEUTROPHILS % (AUTO) 71.4 % (40.0-70.0); PLATELET COUNT (AUTO) 222 K/uL (150-450); RED BLOOD CELL COUNT(AUTO) 4.87 MIL/uL (4.50-5.90); RED CELL DISTRIBUTION WIDTH 13.5 % (11.5-14.5)
[2017-04-27 13:37] LABS: ANION GAP 7 mmol/L (8-16); CALCIUM, TOTAL 8.9 mg/dL (8.8-10.5); CARBON DIOXIDE 30 mmol/L (22-29); CHLORIDE 105 mmol/L (98-107); CREATININE 0.91 mg/dL (0.60-1.30); GLOMERULAR FILTR. RATE CALC > 60 mL/min (>60); GLUCOSE,RANDOM 85 mg/dL (70-110); POTASSIUM 3.6 mmol/L (3.5-5.1); SALICYLATE 1.8 mg/dL (2.8-20.0); SODIUM SERUM 142 mmol/L (136-145); UREA NITROGEN, BLOOD 16 mg/dL (7-18)
[2017-04-27 13:44] LABS: ALANINE AMINOTRANSFERASE 57 U/L (12-78); ALBUMIN 3.5 g/dL (3.4-5.0); ALKALINE PHOSPHATASE 72 U/L (46-116); ASPARTATE AMINOTRANSFERASE 25 U/L (15-37); BILIRUBIN,TOTAL 0.3 mg/dL (0.1-1.0); TOTAL PROTEIN, SERUM 7.2 g/dL (6.4-8.2)
[2017-04-27 13:47] LABS: ACETAMINOPHEN < 2 mcg/mL (10-30)
[2017-04-27] MEDS ORDERED: ONDANSETRON HCL 4 MG/2 ML VIAL IVP PRN (14:00)
[2017-04-27] MEDS ORDERED: ACETAMINOPHEN 325 MG TABLET PO PRN (14:00)
[2017-04-27] MEDS ORDERED: 0.9% SODIUM CHLORIDE 10 ML SYRINGE IVP PRN (14:00)
[2017-04-27 14:18] LABS: GLUCOSE,POINT OF CARE 59 MG/DL (70-110)
[2017-04-27 14:22] LABS: GLUCOSE,POINT OF CARE 100 MG/DL (70-110)
[2017-04-27 14:47] LABS: GLUCOSE,POINT OF CARE 29 MG/DL (70-110)
[2017-04-27 15:13] LABS: GLUCOSE,POINT OF CARE 80 MG/DL (70-110)
[2017-04-27 16:07] LABS: GLUCOSE,POINT OF CARE 22 MG/DL (70-110)
[2017-04-27 16:37] LABS: PLATELET MORPHOLOGY COMMENT NORMAL
[2017-04-27 16:42] LABS: GLUCOSE,POINT OF CARE 126 MG/DL (70-110)
[2017-04-27 17:13] LABS: GLUCOSE,POINT OF CARE 135 MG/DL (70-110)
[2017-04-27 17:38] LABS: GLUCOSE,POINT OF CARE 114 MG/DL (70-110)
[2017-04-27 18:02] LABS: GLUCOSE,POINT OF CARE 102 MG/DL (70-110)
[2017-04-27 19:07] LABS: GLUCOSE,POINT OF CARE 194 MG/DL (70-110)
[2017-04-27 20:22] LABS: GLUCOSE,POINT OF CARE 223 MG/DL (70-110)
[2017-04-27 21:18] LABS: GLUCOSE,POINT OF CARE 238 MG/DL (70-110)
[2017-04-27 22:18] LABS: GLUCOSE,POINT OF CARE 279 MG/DL (70-110)
[2017-04-27 22:40] LABS: AMPHET/METH SCREEN,URINE NEGATIVE (NEGATIVE); BARBITURATE SCREEN, URINE NEGATIVE (NEGATIVE); BENZODIAZEPINES SCREEN,URINE NEGATIVE (NEGATIVE); CANNABINOID SCREEN,URINE NEGATIVE (NEGATIVE); COCAINE SCREEN,URINE NEGATIVE (NEGATIVE); METHADONE SCREEN, URINE NEGATIVE (NEGATIVE); OPIATE SCREEN,URINE NEGATIVE (NEGATIVE)
[2017-04-27 22:41] LABS: PHENCYCLIDINE SCREEN,URINE NEGATIVE (NEGATIVE)
[2017-04-27 23:18] LABS: GLUCOSE,POINT OF CARE 288 MG/DL (70-110)
[2017-04-28 02:12] LABS: GLUCOSE,POINT OF CARE 301 MG/DL (70-110)
[2017-04-28] MEDS ORDERED: DEXTROSE 50%-WATER 25 GM/50 ML SYRINGE IVP PRN (02:30)
[2017-04-28] MEDS: INSULIN REGULAR, HUMAN 100 UNITS/ML SQ PRN ×4 (02:56→21:39)
[2017-04-28 06:13] LABS: GLUCOSE,POINT OF CARE 168 MG/DL (70-110)
[2017-04-28 08:17] LABS: GLUCOSE,POINT OF CARE 142 MG/DL (70-110)
[2017-04-28 09:23] VITALS: BP 118/72
[2017-04-28 10:16] LABS: EOSINOPHILS % (AUTO) 1.1 % (1.0-6.0); HEMATOCRIT 41.8 % (41-53); HEMOGLOBIN 14.2 g/dL (13.5-17.5); LYMPHOCYTES # (AUTO) 0.7 K/uL (1.0-4.8); LYMPHOCYTES % (AUTO) 14.7 % (22.0-44.0); MEAN CORPUSCULAR HEMOGLOBIN 30.3 pg (26.0-34.0); MEAN CORPUSCULAR HGB CONC 33.9 G/dL (31.0-37.0); MEAN CORPUSCULAR VOLUME 89 fL (80-100); MONOCYTES # (AUTO) 0.5 K/uL (0.1-1.0); MONOCYTES % (AUTO) 9.5 % (2.0-9.0); NEUTROPHILS # (AUTO) 3.5 K/uL (1.8-7.7); NEUTROPHILS % (AUTO) 73.7 % (40.0-70.0); PLATELET COUNT (AUTO) 199 K/uL (150-450); RED BLOOD CELL COUNT(AUTO) 4.68 MIL/uL (4.50-5.90); RED CELL DISTRIBUTION WIDTH 13.8 % (11.5-14.5)
[2017-04-28 10:37] LABS: ALANINE AMINOTRANSFERASE 46 U/L (12-78); ALBUMIN 3.2 g/dL (3.4-5.0); ALKALINE PHOSPHATASE 75 U/L (46-116); ANION GAP 8 mmol/L (8-16); ASPARTATE AMINOTRANSFERASE 23 U/L (15-37); BILIRUBIN,TOTAL 0.5 mg/dL (0.1-1.0); CALCIUM, TOTAL 8.7 mg/dL (8.8-10.5); CARBON DIOXIDE 29 mmol/L (22-29); CHLORIDE 101 mmol/L (98-107); GLOMERULAR FILTR. RATE CALC > 60 mL/min (>60); GLUCOSE,RANDOM 302 mg/dL (70-110); POTASSIUM 4.5 mmol/L (3.5-5.1); SODIUM SERUM 138 mmol/L (136-145); TOTAL PROTEIN, SERUM 6.6 g/dL (6.4-8.2); UREA NITROGEN, BLOOD 12 mg/dL (7-18)
[2017-04-28 11:33] LABS: GLUCOSE,POINT OF CARE 330 MG/DL (70-110)
[2017-04-28] MEDS ORDERED: INSULIN ASPART 100 UNITS/ML SQ PRN (12:45)
[2017-04-28 12:52] LABS: GLUCOSE,POINT OF CARE 319 MG/DL (70-110)
[2017-04-28] MEDS: VENLAFAXINE HCL 150 MG ER CAPSULE PO SCH (13:26)
[2017-04-28 13:45] VITALS: BP 132/77
[2017-04-28 18:03] LABS: GLUCOSE,POINT OF CARE 234 MG/DL (70-110)
[2017-04-28] MEDS ORDERED: INSULIN DETEMIR 100 UNITS/ML SQ SCH (21:00)
[2017-04-28] MEDS: INSULIN DETEMIR 100 UNITS/ML SQ SCH (21:39)
[2017-04-28 22:42] LABS: GLUCOSE,POINT OF CARE 403 MG/DL (70-110)
[2017-04-28 23:43] VITALS: BP 154/79
[2017-04-29 05:33] VITALS: BP 127/75
[2017-04-29 07:43] LABS: GLUCOMETER DEV NAME(LOC) 6N 1E; GLUCOSE,POINT OF CARE 86 MG/DL (70-110)
[2017-04-29 08:22] LABS: BASOPHILS % (AUTO) 0.3 % (0.0-2.0); EOSINOPHILS % (AUTO) 1.1 % (1.0-6.0); HEMATOCRIT 45.4 % (41-53); HEMOGLOBIN 15.6 g/dL (13.5-17.5); LYMPHOCYTES # (AUTO) 1.1 K/uL (1.0-4.8); LYMPHOCYTES % (AUTO) 21.6 % (22.0-44.0); MEAN CORPUSCULAR HEMOGLOBIN 30.4 pg (26.0-34.0); MEAN CORPUSCULAR HGB CONC 34.4 G/dL (31.0-37.0); MEAN CORPUSCULAR VOLUME 88 fL (80-100); MONOCYTES # (AUTO) 0.6 K/uL (0.1-1.0); MONOCYTES % (AUTO) 11.5 % (2.0-9.0); NEUTROPHILS # (AUTO) 3.2 K/uL (1.8-7.7); NEUTROPHILS % (AUTO) 65.5 % (40.0-70.0); PLATELET COUNT (AUTO) 220 K/uL (150-450); RED BLOOD CELL COUNT(AUTO) 5.14 MIL/uL (4.50-5.90); RED CELL DISTRIBUTION WIDTH 13.8 % (11.5-14.5)
[2017-04-29 08:24] VITALS: BP 130/73
[2017-04-29] MEDS ORDERED: SIMVASTATIN 20 MG TABLET PO ONE (08:30)
[2017-04-29 08:38] LABS: ANION GAP 5 mmol/L (8-16); CALCIUM, TOTAL 9.2 mg/dL (8.8-10.5); CARBON DIOXIDE 34 mmol/L (22-29); CHLORIDE 103 mmol/L (98-107); CREATININE 0.86 mg/dL (0.60-1.30); GLOMERULAR FILTR. RATE CALC > 60 mL/min (>60); GLUCOSE,RANDOM 68 mg/dL (70-110); SODIUM SERUM 142 mmol/L (136-145); UREA NITROGEN, BLOOD 17 mg/dL (7-18)
[2017-04-29] MEDS: VENLAFAXINE HCL 150 MG ER CAPSULE PO SCH (08:46)
[2017-04-29] MEDS: PANTOPRAZOLE SODIUM 40 MG DR TABLET PO SCH (08:46)
[2017-04-29 11:30] VITALS: BP 128/77
[2017-04-29] MEDS: IBUPROFEN 400 MG TABLET PO PRN ×2 (12:31→18:03)
[2017-04-29] MEDS: HYPROMELLOSE 0.5% 15 ML OPHTHALMIC SOLUTION OU PRN ×3 (12:31→18:03)
[2017-04-29 15:57] VITALS: BP 149/86
[2017-04-29] MEDS: INSULIN REGULAR, HUMAN 100 UNITS/ML SQ PRN ×3 (16:23→20:48)
[2017-04-29] MEDS ORDERED: MAGNESIUM SULFATE 2 GM in DEXTROSE 5%-WATER 50 ML IV ONE (18:00)
[2017-04-29 18:22] LABS: GLUCOMETER DEV NAME(LOC) 6N 1E; GLUCOSE,POINT OF CARE 248 MG/DL (70-110)
[2017-04-29 18:22] LABS: GLUCOMETER DEV NAME(LOC) 6N 1E; GLUCOSE,POINT OF CARE 359 MG/DL (70-110)
[2017-04-29] MEDS ORDERED: SODIUM CHLORIDE 0.9% 1,000 ML IV ONE (18:41)
[2017-04-29 20:12] VITALS: BP 147/90
[2017-04-29] MEDS: INSULIN DETEMIR 100 UNITS/ML SQ SCH (20:47)
[2017-04-29] MEDS ORDERED: INSULIN DETEMIR 100 UNITS/ML SQ SCH (21:00)
[2017-04-29] MEDS: DEXTROSE 50%-WATER 25 GM/50 ML SYRINGE IVP PRN (23:58)
[2017-04-30 00:04] VITALS: BP 149/82
[2017-04-30] MEDS: IBUPROFEN 400 MG TABLET PO PRN ×3 (01:28→22:18)
[2017-04-30 04:05] VITALS: BP 131/80
[2017-04-30 07:34] LABS: BASOPHILS # (AUTO) 0.05 K/uL (0.00-0.20); BASOPHILS % (AUTO) 0.9 % (0.0-2.0); EOSINOPHILS # (AUTO) 0.06 K/uL (0.00-0.70); EOSINOPHILS % (AUTO) 1.05 % (1.0-6.0); HEMATOCRIT 46.9 % (41-53); HEMOGLOBIN 15.6 g/dL (13.5-17.5); LYMPHOCYTES # (AUTO) 0.9 K/uL (1.0-4.8); LYMPHOCYTES % (AUTO) 16.1 % (22.0-44.0); MEAN CORPUSCULAR HEMOGLOBIN 29.8 pg (26.0-34.0); MEAN CORPUSCULAR HGB CONC 33.2 G/dL (31.0-37.0); MEAN CORPUSCULAR VOLUME 90 fL (80-100); MONOCYTES # (AUTO) 0.6 K/uL (0.1-1.0); MONOCYTES % (AUTO) 10.6 % (2.0-9.0); NEUTROPHILS % (AUTO) 71.4 % (40.0-70.0); PLATELET COUNT (AUTO) 210 K/uL (150-450); RED BLOOD CELL COUNT(AUTO) 5.21 MIL/uL (4.50-5.90); RED CELL DISTRIBUTION WIDTH 13.4 % (11.5-14.5)
[2017-04-30 07:40] LABS: ANION GAP 9 mmol/L (8-16); CARBON DIOXIDE 29 mmol/L (22-29); CHLORIDE 99 mmol/L (98-107); CREATININE 0.95 mg/dL (0.60-1.30); GLOMERULAR FILTR. RATE CALC > 60 mL/min (>60); GLUCOSE,RANDOM 243 mg/dL (70-110); SODIUM SERUM 137 mmol/L (136-145); UREA NITROGEN, BLOOD 18 mg/dL (7-18)
[2017-04-30 07:50] VITALS: BP 136/93
[2017-04-30] MEDS: VENLAFAXINE HCL 150 MG ER CAPSULE PO SCH (09:37)
[2017-04-30] MEDS: PANTOPRAZOLE SODIUM 40 MG DR TABLET PO SCH (09:37)
[2017-04-30] MEDS: INSULIN REGULAR, HUMAN 100 UNITS/ML SQ PRN (12:20)
[2017-04-30 15:45] VITALS: BP 147/91
[2017-04-30 16:18] LABS: GLUCOMETER DEV NAME(LOC) 6N 2D; GLUCOSE,POINT OF CARE 68 MG/DL (70-110)
[2017-04-30 16:18] LABS: GLUCOMETER DEV NAME(LOC) 6N 2D; GLUCOSE,POINT OF CARE 245 MG/DL (70-110)
[2017-04-30 16:18] LABS: GLUCOMETER DEV NAME(LOC) 6N 2D; GLUCOSE,POINT OF CARE 117 MG/DL (70-110)
[2017-04-30 16:18] LABS: GLUCOMETER DEV NAME(LOC) 6N 2D; GLUCOSE,POINT OF CARE 234 MG/DL (70-110)
[2017-04-30 18:34] LABS: GLUCOMETER DEV NAME(LOC) 6N 1E; GLUCOSE,POINT OF CARE 273 MG/DL (70-110)
[2017-04-30 18:34] LABS: GLUCOMETER DEV NAME(LOC) 6N 1E; GLUCOSE,POINT OF CARE 332 MG/DL (70-110)
[2017-04-30 18:34] LABS: GLUCOMETER DEV NAME(LOC) 6N 1E; GLUCOSE,POINT OF CARE 127 MG/DL (70-110)
[2017-04-30 18:34] LABS: GLUCOMETER DEV NAME(LOC) 6N 1E; GLUCOSE,POINT OF CARE 310 MG/DL (70-110)
[2017-04-30 18:34] LABS: GLUCOMETER DEV NAME(LOC) 6N 1E; GLUCOSE,POINT OF CARE 346 MG/DL (70-110)
[2017-04-30 18:34] LABS: GLUCOMETER DEV NAME(LOC) 6N 1E; GLUCOSE,POINT OF CARE 306 MG/DL (70-110)
[2017-04-30 20:00] VITALS: BP 125/74
[2017-04-30] MEDS: INSULIN DETEMIR 100 UNITS/ML SQ SCH (21:00)
[2017-05-01] VITALS (7 sets, daily range): BP systolic 110–139; BP diastolic 68–82
[2017-05-01 02:32] LABS: GLUCOMETER DEV NAME(LOC) 6N 2D; GLUCOSE,POINT OF CARE 102 MG/DL (70-110)
[2017-05-01 02:32] LABS: GLUCOMETER DEV NAME(LOC) 6N 2D; GLUCOSE,POINT OF CARE 106 MG/DL (70-110)
[2017-05-01 02:32] LABS: GLUCOMETER DEV NAME(LOC) 6N 2D; GLUCOSE,POINT OF CARE 71 MG/DL (70-110)
[2017-05-01 05:43] LABS: GLUCOMETER DEV NAME(LOC) 6N 2D; GLUCOSE,POINT OF CARE 306 MG/DL (70-110)
[2017-05-01] MEDS: IBUPROFEN 400 MG TABLET PO PRN ×2 (06:19→20:46)
[2017-05-01] MEDS: LORazepam 2 MG/ML VIAL IVP PRN (06:27)
[2017-05-01 07:11] LABS: BASOPHILS # (AUTO) 0.01 K/uL (0.00-0.20); BASOPHILS % (AUTO) 0.1 % (0.0-2.0); EOSINOPHILS # (AUTO) 0.09 K/uL (0.00-0.70); EOSINOPHILS % (AUTO) 1.57 % (1.0-6.0); LYMPHOCYTES # (AUTO) 1.2 K/uL (1.0-4.8); LYMPHOCYTES % (AUTO) 20.5 % (22.0-44.0); MEAN CORPUSCULAR HEMOGLOBIN 29.6 pg (26.0-34.0); MEAN CORPUSCULAR HGB CONC 32.6 G/dL (31.0-37.0); MEAN CORPUSCULAR VOLUME 91 fL (80-100); MONOCYTES # (AUTO) 0.7 K/uL (0.1-1.0); MONOCYTES % (AUTO) 11.6 % (2.0-9.0); NEUTROPHILS # (AUTO) 3.8 K/uL (1.8-7.7); NEUTROPHILS % (AUTO) 66.2 % (40.0-70.0); PLATELET COUNT (AUTO) 197 K/uL (150-450); RED BLOOD CELL COUNT(AUTO) 5.06 MIL/uL (4.50-5.90); RED CELL DISTRIBUTION WIDTH 13.4 % (11.5-14.5)
[2017-05-01 07:37] LABS: CARBON DIOXIDE 32 mmol/L (22-29); CREATININE 1.07 mg/dL (0.60-1.30); GLOMERULAR FILTR. RATE CALC > 60 mL/min (>60); GLUCOSE,RANDOM 297 mg/dL (70-110); UREA NITROGEN, BLOOD 15 mg/dL (7-18)
[2017-05-01 08:39] LABS: ANION GAP 6 mmol/L (8-16); CALCIUM, TOTAL 9.2 mg/dL (8.8-10.5); CHLORIDE 100 mmol/L (98-107); POTASSIUM 4.9 mmol/L (3.5-5.1); SODIUM SERUM 138 mmol/L (136-145)
[2017-05-01] MEDS: PANTOPRAZOLE SODIUM 40 MG DR TABLET PO SCH (09:30)
[2017-05-01] MEDS: VENLAFAXINE HCL 150 MG ER CAPSULE PO SCH (09:30)
[2017-05-01] MEDS ORDERED: MAGNESIUM SULFATE 4 GM/WATER 100 ML IV PRN (10:15)
[2017-05-01] MEDS ORDERED: MAGNESIUM SULFATE 2 GM in DEXTROSE 5%-WATER 50 ML IV PRN (10:15)
[2017-05-01] MEDS: INSULIN REGULAR, HUMAN 100 UNITS/ML SQ PRN ×4 (10:19→20:49)
[2017-05-01 10:37] LABS: GLUCOMETER DEV NAME(LOC) 6N 2D; GLUCOSE,POINT OF CARE 358 MG/DL (70-110)
[2017-05-01 11:27] LABS: ALBUMIN 3.5 g/dL (3.4-5.0)
[2017-05-01 11:33] LABS: GLUCOMETER DEV NAME(LOC) 6N 1E; GLUCOSE,POINT OF CARE 323 MG/DL (70-110)
[2017-05-01 11:33] LABS: GLUCOMETER DEV NAME(LOC) 6N 1E; GLUCOSE,POINT OF CARE 540 MG/DL (70-110)
[2017-05-01 14:53] LABS: GLUCOMETER DEV NAME(LOC) 6N 1E; GLUCOSE,POINT OF CARE 426 MG/DL (70-110)
[2017-05-01] MEDS: MAGNESIUM OXIDE 400 MG TABLET PO PRN ×3 (15:50→20:47)
[2017-05-01 17:28] LABS: GLUCOMETER DEV NAME(LOC) 6N 2D; GLUCOSE,POINT OF CARE 252 MG/DL (70-110)
[2017-05-01] MEDS: INSULIN DETEMIR 100 UNITS/ML SQ SCH (20:53)
[2017-05-01 23:43] LABS: GLUCOMETER DEV NAME(LOC) 6N 1E; GLUCOSE,POINT OF CARE 199 MG/DL (70-110)
[2017-05-02] MEDS: LORazepam 2 MG/ML VIAL IVP PRN ×2 (02:23→09:06)
[2017-05-02 05:09] VITALS: BP 130/77
[2017-05-02 06:47] LABS: GLUCOMETER DEV NAME(LOC) 6N 1E; GLUCOSE,POINT OF CARE 198 MG/DL (70-110)
[2017-05-02 07:11] VITALS: BP 109/74
[2017-05-02] MEDS: VENLAFAXINE HCL 150 MG ER CAPSULE PO SCH (09:06)
[2017-05-02] MEDS: PANTOPRAZOLE SODIUM 40 MG DR TABLET PO SCH (09:06)
[2017-05-02 11:32] VITALS: BP 126/74
[2017-05-02 11:39] LABS: GLUCOMETER DEV NAME(LOC) 6N 2D; GLUCOSE,POINT OF CARE 269 MG/DL (70-110)
[2017-05-02] MEDS: INSULIN REGULAR, HUMAN 100 UNITS/ML SQ PRN ×3 (11:42→21:56)
[2017-05-02] MEDS ORDERED: HYDROCORTISONE 1% 30 GM OINTMENT TP PRN (11:45)
[2017-05-02] MEDS: SitaGLIPtin PHOSPHATE 50 MG TABLET PO SCH (13:49)
[2017-05-02 15:09] VITALS: BP 121/70
[2017-05-02 17:53] LABS: GLUCOMETER DEV NAME(LOC) 6N 2D; GLUCOSE,POINT OF CARE 181 MG/DL (70-110)
[2017-05-02] MEDS: MAGNESIUM OXIDE 400 MG TABLET PO PRN (19:25)
[2017-05-02 19:30] VITALS: BP 131/79
[2017-05-02] MEDS: INSULIN DETEMIR 100 UNITS/ML SQ SCH (21:54)
[2017-05-02] MEDS: IBUPROFEN 400 MG TABLET PO PRN (22:10)
[2017-05-02 23:21] VITALS: BP 121/73
[2017-05-03] MEDS: MAGNESIUM OXIDE 400 MG TABLET PO PRN (01:02)
[2017-05-03 05:49] VITALS: BP 132/81
[2017-05-03] MEDS: INSULIN REGULAR, HUMAN 100 UNITS/ML SQ PRN ×3 (06:37→20:28)
[2017-05-03 07:18] LABS: GLUCOMETER DEV NAME(LOC) 6N 1E; GLUCOSE,POINT OF CARE 217 MG/DL (70-110)
[2017-05-03 07:38] VITALS: BP 139/83
[2017-05-03 08:05] LABS: BASOPHILS % (AUTO) 0.6 % (0.0-2.0); HEMATOCRIT 43.6 % (41-53); HEMOGLOBIN 15.1 g/dL (13.5-17.5); LYMPHOCYTES % (AUTO) 20.7 % (22.0-44.0); MEAN CORPUSCULAR HEMOGLOBIN 30.7 pg (26.0-34.0); MEAN CORPUSCULAR HGB CONC 34.6 G/dL (31.0-37.0); MEAN CORPUSCULAR VOLUME 89 fL (80-100); MONOCYTES # (AUTO) 0.5 K/uL (0.1-1.0); MONOCYTES % (AUTO) 10.2 % (2.0-9.0); NEUTROPHILS # (AUTO) 3.3 K/uL (1.8-7.7); NEUTROPHILS % (AUTO) 67.5 % (40.0-70.0); PLATELET COUNT (AUTO) 205 K/uL (150-450); RED BLOOD CELL COUNT(AUTO) 4.92 MIL/uL (4.50-5.90); RED CELL DISTRIBUTION WIDTH 13.6 % (11.5-14.5)
[2017-05-03] MEDS: PANTOPRAZOLE SODIUM 40 MG DR TABLET PO SCH (08:12)
[2017-05-03] MEDS: VENLAFAXINE HCL 150 MG ER CAPSULE PO SCH (08:12)
[2017-05-03] MEDS: SitaGLIPtin PHOSPHATE 50 MG TABLET PO SCH (08:39)
[2017-05-03 09:14] LABS: ANION GAP 11 mmol/L (8-16); CALCIUM, TOTAL 8.9 mg/dL (8.8-10.5); CARBON DIOXIDE 28 mmol/L (22-29); CHLORIDE 99 mmol/L (98-107); CREATININE 1.06 mg/dL (0.60-1.30); GLOMERULAR FILTR. RATE CALC > 60 mL/min (>60); GLUCOSE,RANDOM 240 mg/dL (70-110); POTASSIUM 4.2 mmol/L (3.5-5.1); SODIUM SERUM 138 mmol/L (136-145)
[2017-05-03 09:26] LABS: UREA NITROGEN, BLOOD 23 mg/dL (7-18)
[2017-05-03 11:36] VITALS: BP 120/86
[2017-05-03 11:43] LABS: GLUCOMETER DEV NAME(LOC) 6N 1E; GLUCOSE,POINT OF CARE 218 MG/DL (70-110)
[2017-05-03 15:06] VITALS: BP 140/82
[2017-05-03 17:53] LABS: GLUCOMETER DEV NAME(LOC) 6N 1E; GLUCOSE,POINT OF CARE 84 MG/DL (70-110)
[2017-05-03 19:55] VITALS: BP 136/80
[2017-05-03] MEDS: IBUPROFEN 400 MG TABLET PO PRN (20:21)
[2017-05-03] MEDS: INSULIN DETEMIR 100 UNITS/ML SQ SCH (20:27)
[2017-05-03] MEDS: LORazepam 2 MG/ML VIAL IVP PRN (22:21)
[2017-05-04 03:53] LABS: GLUCOMETER DEV NAME(LOC) 6N 1E; GLUCOSE,POINT OF CARE 311 MG/DL (70-110)
[2017-05-04 05:53] VITALS: BP 135/82
[2017-05-04] MEDS: DEXTROSE 50%-WATER 25 GM/50 ML SYRINGE IVP PRN (06:45)
[2017-05-04 07:23] LABS: GLUCOMETER DEV NAME(LOC) 6N 1E; GLUCOSE,POINT OF CARE 175 MG/DL (70-110)
[2017-05-04 07:23] LABS: GLUCOMETER DEV NAME(LOC) 6N 1E; GLUCOSE,POINT OF CARE 48 MG/DL (70-110)
[2017-05-04 07:25] VITALS: BP 124/78
[2017-05-04] MEDS: PANTOPRAZOLE SODIUM 40 MG DR TABLET PO SCH (08:54)
[2017-05-04] MEDS: IBUPROFEN 400 MG TABLET PO PRN (08:54)
[2017-05-04] MEDS: VENLAFAXINE HCL 150 MG ER CAPSULE PO SCH (08:54)
[2017-05-04 11:06] VITALS: BP 138/84
[2017-05-04] MEDS: INSULIN REGULAR, HUMAN 100 UNITS/ML SQ PRN ×2 (12:05→17:52)
[2017-05-04 12:17] LABS: GLUCOMETER DEV NAME(LOC) 6N 1E; GLUCOSE,POINT OF CARE 222 MG/DL (70-110)
[2017-05-04 15:17] VITALS: BP 145/86
[2017-05-04 18:13] LABS: GLUCOMETER DEV NAME(LOC) 6N 2D; GLUCOSE,POINT OF CARE 263 MG/DL (70-110)
[2017-05-04 20:13] LABS: GLUCOMETER DEV NAME(LOC) 5N 2R; GLUCOSE,POINT OF CARE 237 MG/DL (70-110)
[2017-05-04 21:13] LABS: GLUCOMETER DEV NAME(LOC) BV3N5; GLUCOSE,POINT OF CARE 235 MG/DL (70-110)
== END 2017-05-04 19:10 | DRG 812 ==
LOC: EMS 11:39 → AHU 04-28 07:36 → 6N 04-28 21:33
PROVIDERS: ADMIT Internal Medicine; ATTEND Internal Medicine
DX: T38.3X2A Poisoning by insulin and oral hypoglycemic [antidiabetic] drugs, intentional self-harm, initial encounter (principal); E11.649 Type 2 diabetes mellitus with hypoglycemia without coma; F20.9 Schizophrenia, unspecified; I10 Essential (primary) hypertension; F41.9 Anxiety disorder, unspecified; F17.210 Nicotine dependence, cigarettes, uncomplicated; F31.9 Bipolar disorder, unspecified; F15.90 Other stimulant use, unspecified, uncomplicated; E78.00 Pure hypercholesterolemia, unspecified; Y92.89 Other specified places as the place of occurrence of the external cause; Z79.4 Long term (current) use of insulin; Z79.899 Other long term (current) drug therapy; Y93.89 Activity, other specified; Y99.8 Other external cause status; Z59.0 Homelessness; Z87.81 Personal history of (healed) traumatic fracture
CPT/HCPCS: 82948; 82962; 83036; 83735; 87081; 96374; 96376; 99285; G0480; G0481; J1815; J2060; J3475; J7030; J7042; J7060

== ENCOUNTER 2017-05-04 15:00 | Inpatient (IN) | payer MEDICAID ==
[~2017-05-04] VITALS: Ht 167.6 cm; Wt 71.2 kg
[~2017-05-04 15:00] MED LIST changes: -INSLAN SQ; -OMEP20 PO; -SIMV-259 PO; -VIST50 PO
[2017-05-04] MEDS: ZOLPIDEM TARTRATE 10 MG TABLET PO PRN (21:05)
[2017-05-04 21:20] VITALS: BP 148/87
[2017-05-04] MEDS: LORazepam 2 MG TABLET PO PRN (22:06)
[2017-05-04] MEDS: INSULIN ASPART 100 UNITS/ML SQ PRN (23:06)
[2017-05-04] MEDS ORDERED: GLUCAGON,HUMAN RECOMBINANT 1 MG VIAL IM PRN (23:59)
[2017-05-05 06:25] LABS: GLUCOMETER DEV NAME(LOC) BV3N5; GLUCOSE,POINT OF CARE 262 MG/DL (70-110)
[2017-05-05] MEDS: INSULIN ASPART 100 UNITS/ML SQ PRN ×4 (06:26→20:49)
[2017-05-05 06:30] VITALS: BP 105/67
[2017-05-05 08:53] VITALS: BP 128/74
[2017-05-05] MEDS: PANTOPRAZOLE SODIUM 40 MG DR TABLET PO SCH (09:09)
[2017-05-05] MEDS: SitaGLIPtin PHOSPHATE 50 MG TABLET PO SCH (09:09)
[2017-05-05] MEDS: VENLAFAXINE HCL 150 MG ER CAPSULE PO SCH (09:09)
[2017-05-05] MEDS: LORazepam 2 MG TABLET PO PRN ×2 (09:10→16:43)
[2017-05-05] MEDS: NICOTINE 21 MG/24 HOUR PATCH TD SCH (09:10)
[2017-05-05] MEDS: HYDROCORTISONE 1% 30 GM CREAM TP SCH ×2 (09:10→16:43)
[2017-05-05] MEDS ORDERED: ALBUTEROL SULFATE HFA 90 MCG/PUFF 8 GM INHALER IH PRN (10:45)
[2017-05-05] MEDS ORDERED: MAGNESIUM HYDROXIDE SUSPENSION 30 ML UDCUP PO PRN (10:45)
[2017-05-05] MEDS ORDERED: BENZOCAINE/MENTHOL LOZENGE MM PRN (10:45)
[2017-05-05] MEDS ORDERED: BACITRACIN 28.4 GM OINTMENT TP PRN (10:45)
[2017-05-05] MEDS ORDERED: ACETAMINOPHEN 325 MG TABLET PO PRN (10:45)
[2017-05-05] MEDS ORDERED: CloNIDine HCL 0.1 MG TABLET PO PRN (10:45)
[2017-05-05] MEDS ORDERED: ONDANSETRON HCL 4 MG TABLET PO PRN (10:45)
[2017-05-05] MEDS ORDERED: MAG HYDROX/AL HYDROX/SIMETH ES 30 ML SUSPENSION UDCUP PO PRN (10:45)
[2017-05-05] MEDS ORDERED: LOPERAMIDE HCL 2 MG CAPSULE PO PRN (10:45)
[2017-05-05] MEDS ORDERED: PETROLATUM,WHITE 71 GM JELLY TP PRN (10:45)
[2017-05-05 11:38] LABS: GLUCOMETER DEV NAME(LOC) BV3N5; GLUCOSE,POINT OF CARE 253 MG/DL (70-110)
[2017-05-05 16:00] VITALS: BP 106/70
[2017-05-05] MEDS: LITHIUM CARBONATE 300 MG CAPSULE PO SCH (16:43)
[2017-05-05 17:03] LABS: GLUCOMETER DEV NAME(LOC) BV3N5; GLUCOSE,POINT OF CARE 285 MG/DL (70-110)
[2017-05-05] MEDS: SIMVASTATIN 20 MG TABLET PO SCH (20:47)
[2017-05-05] MEDS: ZOLPIDEM TARTRATE 10 MG TABLET PO PRN (20:47)
[2017-05-05] MEDS: INSULIN DETEMIR 100 UNITS/ML SQ SCH (20:49)
[2017-05-05 21:03] LABS: GLUCOMETER DEV NAME(LOC) BV3N5; GLUCOSE,POINT OF CARE 277 MG/DL (70-110)
[2017-05-06 06:43] LABS: GLUCOMETER DEV NAME(LOC) BV3S 2; GLUCOSE,POINT OF CARE 185 MG/DL (70-110)
[2017-05-06] MEDS: INSULIN ASPART 100 UNITS/ML SQ PRN ×4 (06:53→20:29)
[2017-05-06 07:09] VITALS: BP 112/78
[2017-05-06] MEDS: NICOTINE 21 MG/24 HOUR PATCH TD SCH (08:08)
[2017-05-06] MEDS: PANTOPRAZOLE SODIUM 40 MG DR TABLET PO SCH (08:08)
[2017-05-06] MEDS: DIVALPROEX SODIUM 500 MG DR TABLET PO SCH (08:08)
[2017-05-06] MEDS: VENLAFAXINE HCL 150 MG ER CAPSULE PO SCH (08:08)
[2017-05-06] MEDS: LITHIUM CARBONATE 300 MG CAPSULE PO SCH ×2 (08:09→16:13)
[2017-05-06] MEDS: HYDROCORTISONE 1% 30 GM CREAM TP SCH ×2 (08:09→16:13)
[2017-05-06] MEDS: LORazepam 2 MG TABLET PO PRN ×2 (08:09→16:13)
[2017-05-06] MEDS: SitaGLIPtin PHOSPHATE 50 MG TABLET PO SCH (08:09)
[2017-05-06 08:27] VITALS: BP 107/71
[2017-05-06 11:38] LABS: GLUCOMETER DEV NAME(LOC) BV3N5; GLUCOSE,POINT OF CARE 221 MG/DL (70-110)
[2017-05-06 16:17] LABS: GLUCOMETER DEV NAME(LOC) BV3N5; GLUCOSE,POINT OF CARE 281 MG/DL (70-110)
[2017-05-06 16:25] VITALS: BP 113/72
[2017-05-06] MEDS: IBUPROFEN 600 MG TABLET PO PRN (16:37)
[2017-05-06 20:18] LABS: GLUCOMETER DEV NAME(LOC) BV3N5; GLUCOSE,POINT OF CARE 261 MG/DL (70-110)
[2017-05-06] MEDS: SIMVASTATIN 20 MG TABLET PO SCH (20:25)
[2017-05-06] MEDS: ZOLPIDEM TARTRATE 10 MG TABLET PO PRN (20:25)
[2017-05-06] MEDS: INSULIN DETEMIR 100 UNITS/ML SQ SCH (20:29)
[2017-05-07] MEDS: LORazepam 2 MG TABLET PO PRN ×2 (02:25→21:25)
[2017-05-07 02:39] VITALS: BP 109/69
[2017-05-07 06:29] LABS: GLUCOMETER DEV NAME(LOC) BV3N5; GLUCOSE,POINT OF CARE 85 MG/DL (70-110)
[2017-05-07 08:02] VITALS: BP 108/62
[2017-05-07 08:35] LABS: HEMATOCRIT 48.2 % (41-53); HEMOGLOBIN 16.4 g/dL (13.5-17.5); MEAN CORPUSCULAR HEMOGLOBIN 30.3 pg (26.0-34.0); MEAN CORPUSCULAR HGB CONC 34.1 G/dL (31.0-37.0); MEAN CORPUSCULAR VOLUME 89 fL (80-100); PLATELET COUNT (AUTO) 240 K/uL (150-450); RED BLOOD CELL COUNT(AUTO) 5.42 MIL/uL (4.50-5.90); RED CELL DISTRIBUTION WIDTH 13.5 % (11.5-14.5)
[2017-05-07 08:38] LABS: BAND NEUTROPHILS % (MANUAL) 1 % (1-5); EOSINOPHILS % (MANUAL) 1 % (1-6); LYMPHOCYTES % (MANUAL) 19 % (22-44); MONOCYTES % (MANUAL) 8 % (2-9); SEGMENTED NEUTROPHILS % 71 % (40-70)
[2017-05-07 08:42] LABS: HEMOGLOBIN A1C 7.8 % (4.5-6.2)
[2017-05-07 08:47] LABS: ANION GAP 5 mmol/L (8-16); CALCIUM, TOTAL 9.4 mg/dL (8.8-10.5); CARBON DIOXIDE 31 mmol/L (22-29); CHLORIDE 102 mmol/L (98-107); CHOL/HDL RATIO 4.5 (4.2-7.3); CHOLESTEROL 185 mg/dL (131-200); CREATININE 1.06 mg/dL (0.60-1.30); GLOMERULAR FILTR. RATE CALC > 60 mL/min (>60); GLUCOSE,RANDOM 125 mg/dL (70-110); HDL CHOLESTEROL 41 mg/dL (40-60); LDL CHOL (CALC.) 118 mg/dL (0-130); PHOSPHORUS 4.6 mg/dL (2.5-4.9); POTASSIUM 4.3 mmol/L (3.5-5.1); SODIUM SERUM 138 mmol/L (136-145); THYROID STIMULATING HORMONE 3.73 uIU/mL (0.36-3.74); TRIGLYCERIDES 130 mg/dL (15-150); UREA NITROGEN, BLOOD 20 mg/dL (7-18)
[2017-05-07] MEDS: LITHIUM CARBONATE 300 MG CAPSULE PO SCH ×2 (09:04→16:40)
[2017-05-07] MEDS: PANTOPRAZOLE SODIUM 40 MG DR TABLET PO SCH (09:04)
[2017-05-07] MEDS: SitaGLIPtin PHOSPHATE 50 MG TABLET PO SCH (09:04)
[2017-05-07] MEDS: DIVALPROEX SODIUM 500 MG DR TABLET PO SCH (09:05)
[2017-05-07] MEDS: VENLAFAXINE HCL 150 MG ER CAPSULE PO SCH (09:05)
[2017-05-07] MEDS: NICOTINE 21 MG/24 HOUR PATCH TD SCH (09:07)
[2017-05-07] MEDS: HYDROCORTISONE 1% 30 GM CREAM TP SCH ×2 (09:07→16:40)
[2017-05-07 11:12] LABS: GLUCOMETER DEV NAME(LOC) BV3N5; GLUCOSE,POINT OF CARE 207 MG/DL (70-110)
[2017-05-07] MEDS: INSULIN ASPART 100 UNITS/ML SQ PRN ×2 (12:05→21:04)
[2017-05-07 16:00] VITALS: BP 108/71
[2017-05-07 16:43] LABS: GLUCOMETER DEV NAME(LOC) BV3N5; GLUCOSE,POINT OF CARE 62 MG/DL (70-110)
[2017-05-07 17:23] LABS: GLUCOMETER DEV NAME(LOC) BV3N5; GLUCOSE,POINT OF CARE 130 MG/DL (70-110)
[2017-05-07 21:02] LABS: GLUCOMETER DEV NAME(LOC) BV3N5; GLUCOSE,POINT OF CARE 343 MG/DL (70-110)
[2017-05-07] MEDS: SIMVASTATIN 20 MG TABLET PO SCH (21:02)
[2017-05-07] MEDS: ZOLPIDEM TARTRATE 10 MG TABLET PO PRN (21:02)
[2017-05-07] MEDS: INSULIN DETEMIR 100 UNITS/ML SQ SCH (21:04)
[2017-05-08 05:28] VITALS: BP 118/78
[2017-05-08 06:03] LABS: GLUCOMETER DEV NAME(LOC) BV3N5; GLUCOSE,POINT OF CARE 180 MG/DL (70-110)
[2017-05-08] MEDS: INSULIN ASPART 100 UNITS/ML SQ PRN ×3 (06:47→21:10)
[2017-05-08 08:11] VITALS: BP 103/68
[2017-05-08] MEDS: PANTOPRAZOLE SODIUM 40 MG DR TABLET PO SCH (09:00)
[2017-05-08] MEDS: LORazepam 2 MG TABLET PO PRN (09:00)
[2017-05-08] MEDS: VENLAFAXINE HCL 150 MG ER CAPSULE PO SCH (09:00)
[2017-05-08] MEDS: NICOTINE 21 MG/24 HOUR PATCH TD SCH (09:00)
[2017-05-08] MEDS: HYDROCORTISONE 1% 30 GM CREAM TP SCH ×2 (09:01→17:17)
[2017-05-08] MEDS: SitaGLIPtin PHOSPHATE 50 MG TABLET PO SCH (09:01)
[2017-05-08] MEDS: LITHIUM CARBONATE 300 MG CAPSULE PO SCH ×2 (09:01→17:17)
[2017-05-08] MEDS: CHOLECALCIFEROL (VIT D3) 1,000 UNITS TABLET PO SCH (09:01)
[2017-05-08] MEDS: DIVALPROEX SODIUM 500 MG DR TABLET PO SCH (09:01)
[2017-05-08] MEDS: MAGNESIUM OXIDE 400 MG TABLET PO SCH ×2 (09:01→17:16)
[2017-05-08 11:57] LABS: GLUCOMETER DEV NAME(LOC) BV3N5; GLUCOSE,POINT OF CARE 93 MG/DL (70-110)
[2017-05-08 16:00] VITALS: BP 114/71
[2017-05-08] MEDS: IBUPROFEN 600 MG TABLET PO PRN (17:17)
[2017-05-08 17:32] LABS: GLUCOMETER DEV NAME(LOC) BV3N5; GLUCOSE,POINT OF CARE 250 MG/DL (70-110)
[2017-05-08] MEDS: SIMVASTATIN 20 MG TABLET PO SCH (21:08)
[2017-05-08] MEDS: INSULIN DETEMIR 100 UNITS/ML SQ SCH (21:10)
[2017-05-08] MEDS: ZOLPIDEM TARTRATE 10 MG TABLET PO PRN (21:19)
[2017-05-08 21:32] LABS: GLUCOMETER DEV NAME(LOC) BV3N5; GLUCOSE,POINT OF CARE 299 MG/DL (70-110)
[2017-05-09 03:49] VITALS: BP 118/80
[2017-05-09 06:13] LABS: GLUCOMETER DEV NAME(LOC) BV3N5; GLUCOSE,POINT OF CARE 60 MG/DL (70-110)
[2017-05-09 06:52] LABS: GLUCOMETER DEV NAME(LOC) BV3N5; GLUCOSE,POINT OF CARE 89 MG/DL (70-110)
[2017-05-09 08:07] VITALS: BP 108/88
[2017-05-09] MEDS: NICOTINE 21 MG/24 HOUR PATCH TD SCH (09:00)
[2017-05-09] MEDS: CHOLECALCIFEROL (VIT D3) 1,000 UNITS TABLET PO SCH (09:07)
[2017-05-09] MEDS: LITHIUM CARBONATE 300 MG CAPSULE PO SCH ×2 (09:07→16:54)
[2017-05-09] MEDS: SitaGLIPtin PHOSPHATE 50 MG TABLET PO SCH (09:07)
[2017-05-09] MEDS: DIVALPROEX SODIUM 500 MG DR TABLET PO SCH (09:07)
[2017-05-09] MEDS: VENLAFAXINE HCL 150 MG ER CAPSULE PO SCH (09:07)
[2017-05-09] MEDS: MAGNESIUM OXIDE 400 MG TABLET PO SCH ×2 (09:07→16:54)
[2017-05-09] MEDS: PANTOPRAZOLE SODIUM 40 MG DR TABLET PO SCH (09:07)
[2017-05-09] MEDS: HYDROCORTISONE 1% 30 GM CREAM TP SCH ×2 (09:08→16:54)
[2017-05-09] MEDS: INSULIN ASPART 100 UNITS/ML SQ PRN ×2 (11:11→20:39)
[2017-05-09 11:33] LABS: GLUCOMETER DEV NAME(LOC) BV3N5; GLUCOSE,POINT OF CARE 167 MG/DL (70-110)
[2017-05-09 16:00] VITALS: BP 116/70
[2017-05-09 17:18] LABS: GLUCOMETER DEV NAME(LOC) BV3N5; GLUCOSE,POINT OF CARE 79 MG/DL (70-110)
[2017-05-09] MEDS: LORazepam 2 MG TABLET PO PRN (20:37)
[2017-05-09] MEDS: SIMVASTATIN 20 MG TABLET PO SCH (20:37)
[2017-05-09] MEDS: INSULIN DETEMIR 100 UNITS/ML SQ SCH (20:39)
[2017-05-09 20:48] LABS: GLUCOMETER DEV NAME(LOC) BV3N5; GLUCOSE,POINT OF CARE 313 MG/DL (70-110)
[2017-05-10 02:35] VITALS: BP 124/76
[2017-05-10 06:29] LABS: GLUCOMETER DEV NAME(LOC) BV3N5; GLUCOSE,POINT OF CARE 96 MG/DL (70-110)
[2017-05-10 08:03] VITALS: BP 110/62
[2017-05-10 09:03] LABS: ANION GAP 2 mmol/L (8-16); CARBON DIOXIDE 34 mmol/L (22-29); CHLORIDE 103 mmol/L (98-107); CREATININE 0.98 mg/dL (0.60-1.30); GLOMERULAR FILTR. RATE CALC > 60 mL/min (>60); GLUCOSE,RANDOM 82 mg/dL (70-110); POTASSIUM 3.8 mmol/L (3.5-5.1); SODIUM SERUM 139 mmol/L (136-145); UREA NITROGEN, BLOOD 18 mg/dL (7-18); VALPROIC ACID 20 mcg/mL (50-100)
[2017-05-10] MEDS: CHOLECALCIFEROL (VIT D3) 1,000 UNITS TABLET PO SCH (09:20)
[2017-05-10] MEDS: MAGNESIUM OXIDE 400 MG TABLET PO SCH ×2 (09:20→16:37)
[2017-05-10] MEDS: PANTOPRAZOLE SODIUM 40 MG DR TABLET PO SCH (09:20)
[2017-05-10] MEDS: DIVALPROEX SODIUM 500 MG DR TABLET PO SCH ×2 (09:20→16:37)
[2017-05-10] MEDS: VENLAFAXINE HCL 150 MG ER CAPSULE PO SCH (09:20)
[2017-05-10] MEDS: LITHIUM CARBONATE 300 MG CAPSULE PO SCH ×2 (09:20→16:37)
[2017-05-10] MEDS: HYDROCORTISONE 1% 30 GM CREAM TP SCH ×2 (09:20→16:37)
[2017-05-10] MEDS: SitaGLIPtin PHOSPHATE 50 MG TABLET PO SCH (09:21)
[2017-05-10] MEDS: NICOTINE 21 MG/24 HOUR PATCH TD SCH (10:00)
[2017-05-10 11:33] LABS: GLUCOMETER DEV NAME(LOC) BV3N5; GLUCOSE,POINT OF CARE 106 MG/DL (70-110)
[2017-05-10 16:03] VITALS: BP 128/78
[2017-05-10] MEDS: SIMVASTATIN 20 MG TABLET PO SCH (20:28)
[2017-05-10 20:33] LABS: GLUCOMETER DEV NAME(LOC) BV3N5; GLUCOSE,POINT OF CARE 319 MG/DL (70-110)
[2017-05-10] MEDS: INSULIN DETEMIR 100 UNITS/ML SQ SCH (20:38)
[2017-05-10] MEDS: INSULIN ASPART 100 UNITS/ML SQ PRN (20:38)
[2017-05-10] MEDS: ZOLPIDEM TARTRATE 10 MG TABLET PO PRN (21:33)
[2017-05-10] MEDS: GuaiFENesin/D-METHORPHAN [SUGAR-FREE] 200-20MG/10 ML SYRUP UDCUP PO PRN (21:34)
[2017-05-11 05:28] VITALS: BP 126/68
[2017-05-11 06:23] LABS: GLUCOMETER DEV NAME(LOC) BV3N5; GLUCOSE,POINT OF CARE 146 MG/DL (70-110)
[2017-05-11] MEDS: INSULIN ASPART 100 UNITS/ML SQ PRN ×3 (06:32→20:56)
[2017-05-11 09:11] VITALS: BP 113/66
[2017-05-11] MEDS: NICOTINE 21 MG/24 HOUR PATCH TD SCH (09:12)
[2017-05-11] MEDS: CHOLECALCIFEROL (VIT D3) 1,000 UNITS TABLET PO SCH (09:12)
[2017-05-11] MEDS: MAGNESIUM OXIDE 400 MG TABLET PO SCH ×2 (09:12→16:58)
[2017-05-11] MEDS: LITHIUM CARBONATE 300 MG CAPSULE PO SCH ×2 (09:12→16:58)
[2017-05-11] MEDS: DIVALPROEX SODIUM 500 MG DR TABLET PO SCH ×2 (09:12→16:58)
[2017-05-11] MEDS: PANTOPRAZOLE SODIUM 40 MG DR TABLET PO SCH (09:12)
[2017-05-11] MEDS: SitaGLIPtin PHOSPHATE 50 MG TABLET PO SCH (09:13)
[2017-05-11] MEDS: VENLAFAXINE HCL 150 MG ER CAPSULE PO SCH (09:13)
[2017-05-11] MEDS: HYDROCORTISONE 1% 30 GM CREAM TP SCH ×2 (09:13→16:59)
[2017-05-11 11:23] LABS: GLUCOMETER DEV NAME(LOC) BV3N5; GLUCOSE,POINT OF CARE 93 MG/DL (70-110)
[2017-05-11] MEDS: LORazepam 2 MG TABLET PO PRN (13:01)
[2017-05-11] MEDS: GuaiFENesin/D-METHORPHAN [SUGAR-FREE] 200-20MG/10 ML SYRUP UDCUP PO PRN (13:01)
[2017-05-11 16:00] VITALS: BP 123/75
[2017-05-11 17:28] LABS: GLUCOMETER DEV NAME(LOC) BV3N5; GLUCOSE,POINT OF CARE 263 MG/DL (70-110)
[2017-05-11] MEDS: SIMVASTATIN 20 MG TABLET PO SCH (20:53)
[2017-05-11] MEDS: INSULIN DETEMIR 100 UNITS/ML SQ SCH (20:57)
[2017-05-11 20:58] LABS: GLUCOMETER DEV NAME(LOC) BV3N5; GLUCOSE,POINT OF CARE 288 MG/DL (70-110)
[2017-05-11] MEDS: ZOLPIDEM TARTRATE 10 MG TABLET PO PRN (20:58)
[2017-05-12 06:34] LABS: GLUCOMETER DEV NAME(LOC) BV3N5; GLUCOSE,POINT OF CARE 184 MG/DL (70-110)
[2017-05-12] MEDS: INSULIN ASPART 100 UNITS/ML SQ PRN ×3 (06:47→21:11)
[2017-05-12 06:50] VITALS: BP 114/68
[2017-05-12 08:04] VITALS: BP 112/76
[2017-05-12] MEDS: NICOTINE 21 MG/24 HOUR PATCH TD SCH ×2 (09:00→09:20)
[2017-05-12] MEDS: HYDROCORTISONE 1% 30 GM CREAM TP SCH ×2 (09:00→18:00)
[2017-05-12] MEDS: PANTOPRAZOLE SODIUM 40 MG DR TABLET PO SCH (09:20)
[2017-05-12] MEDS: VENLAFAXINE HCL 150 MG ER CAPSULE PO SCH (09:20)
[2017-05-12] MEDS: DIVALPROEX SODIUM 500 MG DR TABLET PO SCH ×2 (09:20→18:00)
[2017-05-12] MEDS: SitaGLIPtin PHOSPHATE 50 MG TABLET PO SCH (09:20)
[2017-05-12] MEDS: LITHIUM CARBONATE 300 MG CAPSULE PO SCH ×2 (09:20→18:00)
[2017-05-12] MEDS: MAGNESIUM OXIDE 400 MG TABLET PO SCH ×2 (09:20→18:00)
[2017-05-12] MEDS: CHOLECALCIFEROL (VIT D3) 1,000 UNITS TABLET PO SCH (09:21)
[2017-05-12 11:57] LABS: GLUCOMETER DEV NAME(LOC) BV3N5; GLUCOSE,POINT OF CARE 166 MG/DL (70-110)
[2017-05-12] MEDS: LORazepam 2 MG TABLET PO PRN ×2 (12:28→21:09)
[2017-05-12] MEDS: GuaiFENesin/D-METHORPHAN [SUGAR-FREE] 200-20MG/10 ML SYRUP UDCUP PO PRN (12:31)
[2017-05-12 16:13] VITALS: BP 118/79
[2017-05-12] MEDS: SIMVASTATIN 20 MG TABLET PO SCH (21:09)
[2017-05-12] MEDS: ZOLPIDEM TARTRATE 10 MG TABLET PO PRN (21:09)
[2017-05-12] MEDS: INSULIN DETEMIR 100 UNITS/ML SQ SCH (21:11)
[2017-05-12 21:27] LABS: GLUCOMETER DEV NAME(LOC) BV3N5; GLUCOSE,POINT OF CARE 359 MG/DL (70-110)
[2017-05-13 05:57] LABS: GLUCOMETER DEV NAME(LOC) BV3N5; GLUCOSE,POINT OF CARE 141 MG/DL (70-110)
[2017-05-13] MEDS: INSULIN ASPART 100 UNITS/ML SQ PRN ×3 (06:25→21:10)
[2017-05-13 06:35] VITALS: BP 119/72
[2017-05-13 08:07] VITALS: BP 110/63
[2017-05-13] MEDS: VENLAFAXINE HCL 150 MG ER CAPSULE PO SCH (09:25)
[2017-05-13] MEDS: DiphenhydrAMINE HCL 25 MG CAPSULE PO SCH ×3 (09:26→16:52)
[2017-05-13] MEDS: MAGNESIUM OXIDE 400 MG TABLET PO SCH ×2 (09:26→16:52)
[2017-05-13] MEDS: LORazepam 2 MG TABLET PO PRN (09:26)
[2017-05-13] MEDS: DIVALPROEX SODIUM 500 MG DR TABLET PO SCH ×2 (09:26→16:52)
[2017-05-13] MEDS: PANTOPRAZOLE SODIUM 40 MG DR TABLET PO SCH (09:26)
[2017-05-13] MEDS: SitaGLIPtin PHOSPHATE 50 MG TABLET PO SCH (09:26)
[2017-05-13] MEDS: CHOLECALCIFEROL (VIT D3) 1,000 UNITS TABLET PO SCH (09:26)
[2017-05-13] MEDS: NICOTINE 21 MG/24 HOUR PATCH TD SCH (09:41)
[2017-05-13] MEDS: HYDROCORTISONE 1% 30 GM CREAM TP SCH ×2 (09:42→16:52)
[2017-05-13] MEDS: LITHIUM CARBONATE 300 MG CAPSULE PO SCH ×2 (09:44→16:52)
[2017-05-13 12:53] LABS: GLUCOMETER DEV NAME(LOC) BV3N5; GLUCOSE,POINT OF CARE 107 MG/DL (70-110)
[2017-05-13 16:00] VITALS: BP 112/66
[2017-05-13] MEDS ORDERED: TUBERCULIN, PURIFIED PROTEIN DERIVATIVE 5 TU/0.1 ML SYG ID ONE (16:00)
[2017-05-13 17:07] LABS: GLUCOMETER DEV NAME(LOC) BV3N5; GLUCOSE,POINT OF CARE 155 MG/DL (70-110)
[2017-05-13] MEDS: SIMVASTATIN 20 MG TABLET PO SCH (21:08)
[2017-05-13] MEDS: INSULIN DETEMIR 100 UNITS/ML SQ SCH (21:10)
[2017-05-13 21:32] LABS: GLUCOMETER DEV NAME(LOC) BV3N5; GLUCOSE,POINT OF CARE 143 MG/DL (70-110)
[2017-05-13] MEDS: ZOLPIDEM TARTRATE 10 MG TABLET PO PRN (21:52)
[2017-05-14 06:40] VITALS: BP 122/79
[2017-05-14] MEDS: INSULIN ASPART 100 UNITS/ML SQ PRN ×4 (06:47→20:45)
[2017-05-14 08:08] VITALS: BP 135/75
[2017-05-14] MEDS: NICOTINE 21 MG/24 HOUR PATCH TD SCH ×2 (09:00→09:12)
[2017-05-14] MEDS: MAGNESIUM OXIDE 400 MG TABLET PO SCH ×2 (09:11→16:13)
[2017-05-14] MEDS: DIVALPROEX SODIUM 500 MG DR TABLET PO SCH ×2 (09:11→16:13)
[2017-05-14] MEDS: SitaGLIPtin PHOSPHATE 50 MG TABLET PO SCH (09:11)
[2017-05-14] MEDS: VENLAFAXINE HCL 150 MG ER CAPSULE PO SCH (09:11)
[2017-05-14] MEDS: PANTOPRAZOLE SODIUM 40 MG DR TABLET PO SCH (09:11)
[2017-05-14] MEDS: CHOLECALCIFEROL (VIT D3) 1,000 UNITS TABLET PO SCH (09:11)
[2017-05-14] MEDS: DiphenhydrAMINE HCL 25 MG CAPSULE PO SCH ×3 (09:11→16:13)
[2017-05-14] MEDS: LITHIUM CARBONATE 300 MG CAPSULE PO SCH ×2 (09:12→16:13)
[2017-05-14] MEDS: HYDROCORTISONE 1% 30 GM CREAM TP SCH ×2 (09:12→16:13)
[2017-05-14 11:42] LABS: GLUCOMETER DEV NAME(LOC) BV2N3; GLUCOSE,POINT OF CARE 162 MG/DL (70-110)
[2017-05-14 11:42] LABS: GLUCOMETER DEV NAME(LOC) BV2N3; GLUCOSE,POINT OF CARE 162 MG/DL (70-110)
[2017-05-14 16:00] VITALS: BP 118/75
[2017-05-14 16:22] LABS: GLUCOMETER DEV NAME(LOC) BV2N3; GLUCOSE,POINT OF CARE 149 MG/DL (70-110)
[2017-05-14] MEDS: ZOLPIDEM TARTRATE 10 MG TABLET PO PRN (20:42)
[2017-05-14] MEDS: INSULIN DETEMIR 100 UNITS/ML SQ SCH (20:44)
[2017-05-14] MEDS: SIMVASTATIN 20 MG TABLET PO SCH (20:46)
[2017-05-14 20:47] LABS: GLUCOMETER DEV NAME(LOC) BV2N3; GLUCOSE,POINT OF CARE 285 MG/DL (70-110)
[2017-05-15 06:27] LABS: GLUCOMETER DEV NAME(LOC) BV2N3; GLUCOSE,POINT OF CARE 155 MG/DL (70-110)
[2017-05-15] MEDS: INSULIN ASPART 100 UNITS/ML SQ PRN ×3 (06:31→20:42)
[2017-05-15 06:39] VITALS: BP 110/69
[2017-05-15] MEDS: NICOTINE 21 MG/24 HOUR PATCH TD SCH (09:00)
[2017-05-15 09:23] VITALS: BP 102/69
[2017-05-15] MEDS: CHOLECALCIFEROL (VIT D3) 1,000 UNITS TABLET PO SCH (09:46)
[2017-05-15] MEDS: SitaGLIPtin PHOSPHATE 50 MG TABLET PO SCH (09:47)
[2017-05-15] MEDS: VENLAFAXINE HCL 150 MG ER CAPSULE PO SCH (09:47)
[2017-05-15] MEDS: DiphenhydrAMINE HCL 25 MG CAPSULE PO SCH ×3 (09:47→16:01)
[2017-05-15] MEDS: DIVALPROEX SODIUM 500 MG DR TABLET PO SCH ×2 (09:48→16:01)
[2017-05-15] MEDS: PANTOPRAZOLE SODIUM 40 MG DR TABLET PO SCH (09:48)
[2017-05-15] MEDS: LITHIUM CARBONATE 300 MG CAPSULE PO SCH ×2 (09:49→16:01)
[2017-05-15] MEDS: MAGNESIUM OXIDE 400 MG TABLET PO SCH ×2 (09:49→16:01)
[2017-05-15] MEDS: HYDROCORTISONE 1% 30 GM CREAM TP SCH ×2 (09:50→16:01)
[2017-05-15 11:28] LABS: GLUCOMETER DEV NAME(LOC) BV2N3; GLUCOSE,POINT OF CARE 139 MG/DL (70-110)
[2017-05-15 16:00] VITALS: BP 118/74
[2017-05-15 16:17] LABS: GLUCOMETER DEV NAME(LOC) BV2N3; GLUCOSE,POINT OF CARE 288 MG/DL (70-110)
[2017-05-15] MEDS: ZOLPIDEM TARTRATE 10 MG TABLET PO PRN (20:39)
[2017-05-15] MEDS: SIMVASTATIN 20 MG TABLET PO SCH (20:39)
[2017-05-15] MEDS: INSULIN DETEMIR 100 UNITS/ML SQ SCH (20:42)
[2017-05-15 20:57] LABS: GLUCOMETER DEV NAME(LOC) BV2N3; GLUCOSE,POINT OF CARE 195 MG/DL (70-110)
[2017-05-16 06:06] VITALS: BP 120/80
[2017-05-16] MEDS: INSULIN ASPART 100 UNITS/ML SQ PRN ×3 (07:17→16:24)
[2017-05-16 08:43] VITALS: BP 104/60
[2017-05-16 08:57] LABS: GLUCOMETER DEV NAME(LOC) BV2N3; GLUCOSE,POINT OF CARE 172 MG/DL (70-110)
[2017-05-16] MEDS: NICOTINE 21 MG/24 HOUR PATCH TD SCH (09:00)
[2017-05-16] MEDS: LITHIUM CARBONATE 300 MG CAPSULE PO SCH ×2 (09:36→16:00)
[2017-05-16] MEDS: PANTOPRAZOLE SODIUM 40 MG DR TABLET PO SCH (09:36)
[2017-05-16] MEDS: SitaGLIPtin PHOSPHATE 50 MG TABLET PO SCH (09:36)
[2017-05-16] MEDS: VENLAFAXINE HCL 150 MG ER CAPSULE PO SCH (09:36)
[2017-05-16] MEDS: CHOLECALCIFEROL (VIT D3) 1,000 UNITS TABLET PO SCH (09:36)
[2017-05-16] MEDS: MAGNESIUM OXIDE 400 MG TABLET PO SCH ×2 (09:37→16:01)
[2017-05-16] MEDS: DiphenhydrAMINE HCL 25 MG CAPSULE PO SCH ×3 (09:37→17:00)
[2017-05-16] MEDS: DIVALPROEX SODIUM 500 MG DR TABLET PO SCH ×2 (09:37→16:00)
[2017-05-16] MEDS: HYDROCORTISONE 1% 30 GM CREAM TP SCH ×2 (09:38→16:01)
[2017-05-16 11:02] LABS: GLUCOMETER DEV NAME(LOC) BV2N3; GLUCOSE,POINT OF CARE 231 MG/DL (70-110)
[2017-05-16 16:00] VITALS: BP 128/67
[2017-05-16 16:07] LABS: GLUCOMETER DEV NAME(LOC) BV2N3; GLUCOSE,POINT OF CARE 264 MG/DL (70-110)
[2017-05-16] MEDS: SIMVASTATIN 20 MG TABLET PO SCH (20:29)
[2017-05-16] MEDS: ZOLPIDEM TARTRATE 10 MG TABLET PO PRN (20:30)
[2017-05-16] MEDS: INSULIN DETEMIR 100 UNITS/ML SQ SCH (21:03)
[2017-05-16 21:23] LABS: GLUCOMETER DEV NAME(LOC) BV2N3; GLUCOSE,POINT OF CARE 124 MG/DL (70-110)
[2017-05-16 21:23] LABS: GLUCOMETER DEV NAME(LOC) BV2N3; GLUCOSE,POINT OF CARE 87 MG/DL (70-110)
[2017-05-17 04:13] VITALS: BP 106/59
[2017-05-17] MEDS: IBUPROFEN 600 MG TABLET PO PRN (04:16)
[2017-05-17 06:17] LABS: GLUCOMETER DEV NAME(LOC) BV2N3; GLUCOSE,POINT OF CARE 193 MG/DL (70-110)
[2017-05-17] MEDS: INSULIN ASPART 100 UNITS/ML SQ PRN ×4 (06:47→20:29)
[2017-05-17] MEDS: VENLAFAXINE HCL 150 MG ER CAPSULE PO SCH (08:27)
[2017-05-17] MEDS: LITHIUM CARBONATE 300 MG CAPSULE PO SCH ×2 (08:27→16:25)
[2017-05-17] MEDS: DIVALPROEX SODIUM 500 MG DR TABLET PO SCH ×2 (08:27→16:25)
[2017-05-17] MEDS: PANTOPRAZOLE SODIUM 40 MG DR TABLET PO SCH (08:27)
[2017-05-17] MEDS: MAGNESIUM OXIDE 400 MG TABLET PO SCH ×2 (08:27→16:25)
[2017-05-17] MEDS: NICOTINE 21 MG/24 HOUR PATCH TD SCH (08:27)
[2017-05-17] MEDS: SitaGLIPtin PHOSPHATE 50 MG TABLET PO SCH (08:27)
[2017-05-17] MEDS: CHOLECALCIFEROL (VIT D3) 1,000 UNITS TABLET PO SCH (08:27)
[2017-05-17] MEDS: HYDROCORTISONE 1% 30 GM CREAM TP SCH ×2 (08:28→16:25)
[2017-05-17 08:37] VITALS: BP 114/76
[2017-05-17] MEDS ORDERED: DiphenhydrAMINE HCL 25 MG CAPSULE PO PRN (09:00)
[2017-05-17 11:23] LABS: GLUCOMETER DEV NAME(LOC) BV2N3; GLUCOSE,POINT OF CARE 307 MG/DL (70-110)
[2017-05-17] MEDS: LORazepam 2 MG TABLET PO PRN (15:50)
[2017-05-17 16:22] VITALS: BP 130/76
[2017-05-17 17:17] LABS: GLUCOMETER DEV NAME(LOC) BV2N3; GLUCOSE,POINT OF CARE 353 MG/DL (70-110)
[2017-05-17] MEDS: SIMVASTATIN 20 MG TABLET PO SCH (20:22)
[2017-05-17 20:28] LABS: GLUCOMETER DEV NAME(LOC) BV2N3; GLUCOSE,POINT OF CARE 230 MG/DL (70-110)
[2017-05-17] MEDS: INSULIN DETEMIR 100 UNITS/ML SQ SCH (20:29)
[2017-05-17] MEDS: ZOLPIDEM TARTRATE 10 MG TABLET PO PRN (21:27)
[2017-05-18 06:01] VITALS: BP 110/70
[2017-05-18 07:02] LABS: GLUCOMETER DEV NAME(LOC) BV2N3; GLUCOSE,POINT OF CARE 138 MG/DL (70-110)
[2017-05-18 08:56] VITALS: BP 127/75
[2017-05-18] MEDS: DIVALPROEX SODIUM 500 MG DR TABLET PO SCH ×2 (08:59→16:49)
[2017-05-18] MEDS: IBUPROFEN 600 MG TABLET PO PRN (08:59)
[2017-05-18] MEDS: VENLAFAXINE HCL 150 MG ER CAPSULE PO SCH (08:59)
[2017-05-18] MEDS: CHOLECALCIFEROL (VIT D3) 1,000 UNITS TABLET PO SCH (09:00)
[2017-05-18] MEDS: NICOTINE 21 MG/24 HOUR PATCH TD SCH (09:00)
[2017-05-18] MEDS: MAGNESIUM OXIDE 400 MG TABLET PO SCH ×2 (09:00→16:49)
[2017-05-18] MEDS: PANTOPRAZOLE SODIUM 40 MG DR TABLET PO SCH (09:00)
[2017-05-18] MEDS: LITHIUM CARBONATE 300 MG CAPSULE PO SCH ×2 (09:01→16:49)
[2017-05-18] MEDS: SitaGLIPtin PHOSPHATE 50 MG TABLET PO SCH (09:01)
[2017-05-18] MEDS: HYDROCORTISONE 1% 30 GM CREAM TP SCH ×2 (09:04→16:49)
[2017-05-18 09:59] VITALS: BP 125/67
[2017-05-18] MEDS: HALOPERIDOL 5 MG TABLET PO PRN (10:45)
[2017-05-18] MEDS: INSULIN ASPART 100 UNITS/ML SQ PRN ×3 (11:44→21:10)
[2017-05-18 11:48] LABS: GLUCOMETER DEV NAME(LOC) BV2N3; GLUCOSE,POINT OF CARE 246 MG/DL (70-110)
[2017-05-18] MEDS: GuaiFENesin/D-METHORPHAN [SUGAR-FREE] 200-20MG/10 ML SYRUP UDCUP PO PRN (13:35)
[2017-05-18 16:28] VITALS: BP 122/78
[2017-05-18 16:32] LABS: GLUCOMETER DEV NAME(LOC) BV2N3; GLUCOSE,POINT OF CARE 271 MG/DL (70-110)
[2017-05-18] MEDS: ZOLPIDEM TARTRATE 10 MG TABLET PO PRN (20:39)
[2017-05-18] MEDS: SIMVASTATIN 20 MG TABLET PO SCH (20:39)
[2017-05-18 20:42] LABS: GLUCOMETER DEV NAME(LOC) BV2N3; GLUCOSE,POINT OF CARE 183 MG/DL (70-110)
[2017-05-18] MEDS: INSULIN DETEMIR 100 UNITS/ML SQ SCH (21:10)
[2017-05-19 02:20] VITALS: BP 140/86
[2017-05-19 06:38] LABS: GLUCOMETER DEV NAME(LOC) BV2N3; GLUCOSE,POINT OF CARE 95 MG/DL (70-110)
[2017-05-19] MEDS: MAGNESIUM OXIDE 400 MG TABLET PO SCH ×2 (08:28→16:37)
[2017-05-19] MEDS: VENLAFAXINE HCL 150 MG ER CAPSULE PO SCH (08:28)
[2017-05-19] MEDS: DIVALPROEX SODIUM 500 MG DR TABLET PO SCH ×2 (08:28→16:37)
[2017-05-19] MEDS: CHOLECALCIFEROL (VIT D3) 1,000 UNITS TABLET PO SCH (08:29)
[2017-05-19] MEDS: PANTOPRAZOLE SODIUM 40 MG DR TABLET PO SCH (08:29)
[2017-05-19] MEDS: SitaGLIPtin PHOSPHATE 50 MG TABLET PO SCH (08:29)
[2017-05-19] MEDS: LITHIUM CARBONATE 300 MG CAPSULE PO SCH ×2 (08:29→16:37)
[2017-05-19] MEDS: HYDROCORTISONE 1% 30 GM CREAM TP SCH ×2 (08:30→17:22)
[2017-05-19 08:32] VITALS: BP 116/71
[2017-05-19] MEDS: NICOTINE 21 MG/24 HOUR PATCH TD SCH (08:35)
[2017-05-19] MEDS: IBUPROFEN 600 MG TABLET PO PRN (13:04)
[2017-05-19 13:27] LABS: GLUCOMETER DEV NAME(LOC) BV2N3; GLUCOSE,POINT OF CARE 97 MG/DL (70-110)
[2017-05-19 17:07] LABS: GLUCOMETER DEV NAME(LOC) BV2N3; GLUCOSE,POINT OF CARE 380 MG/DL (70-110)
[2017-05-19] MEDS: INSULIN ASPART 100 UNITS/ML SQ PRN ×2 (17:22→20:42)
[2017-05-19 17:25] VITALS: BP 123/75
[2017-05-19] MEDS: ZOLPIDEM TARTRATE 10 MG TABLET PO PRN ×2 (20:33→21:13)
[2017-05-19] MEDS: SIMVASTATIN 20 MG TABLET PO SCH (20:33)
[2017-05-19] MEDS: INSULIN DETEMIR 100 UNITS/ML SQ SCH (20:42)
[2017-05-19 21:12] LABS: GLUCOMETER DEV NAME(LOC) BV2N3; GLUCOSE,POINT OF CARE 271 MG/DL (70-110)
[2017-05-19] MEDS: GuaiFENesin/D-METHORPHAN [SUGAR-FREE] 200-20MG/10 ML SYRUP UDCUP PO PRN (21:51)
[2017-05-20 00:53] VITALS: BP 130/82
[2017-05-20 06:33] LABS: GLUCOMETER DEV NAME(LOC) BV2N3; GLUCOSE,POINT OF CARE 114 MG/DL (70-110)
[2017-05-20] MEDS: DIVALPROEX SODIUM 500 MG DR TABLET PO SCH ×2 (08:15→16:17)
[2017-05-20] MEDS: VENLAFAXINE HCL 150 MG ER CAPSULE PO SCH (08:15)
[2017-05-20] MEDS: IBUPROFEN 600 MG TABLET PO PRN ×2 (08:15→21:06)
[2017-05-20] MEDS: PANTOPRAZOLE SODIUM 40 MG DR TABLET PO SCH (08:15)
[2017-05-20] MEDS: LITHIUM CARBONATE 300 MG CAPSULE PO SCH ×2 (08:15→16:17)
[2017-05-20] MEDS: MAGNESIUM OXIDE 400 MG TABLET PO SCH ×2 (08:15→16:17)
[2017-05-20] MEDS: SitaGLIPtin PHOSPHATE 50 MG TABLET PO SCH (08:16)
[2017-05-20] MEDS: HYDROCORTISONE 1% 30 GM CREAM TP SCH ×2 (08:16→16:18)
[2017-05-20] MEDS: NICOTINE 21 MG/24 HOUR PATCH TD SCH (08:19)
[2017-05-20] MEDS: CHOLECALCIFEROL (VIT D3) 1,000 UNITS TABLET PO SCH (08:19)
[2017-05-20 08:22] VITALS: BP 128/83
[2017-05-20] MEDS ORDERED: TETRAHYDROZOLINE HCL 0.05% 15 ML OPHTHALMIC SOLUTION OD PRN (10:15)
[2017-05-20] MEDS: INSULIN ASPART 100 UNITS/ML SQ PRN ×3 (10:59→20:20)
[2017-05-20 13:07] LABS: GLUCOMETER DEV NAME(LOC) BV2N3; GLUCOSE,POINT OF CARE 268 MG/DL (70-110)
[2017-05-20] MEDS: HYPROMELLOSE 0.5% 15 ML OPHTHALMIC SOLUTION OU PRN (15:54)
[2017-05-20 16:21] LABS: GLUCOMETER DEV NAME(LOC) BV2N3; GLUCOSE,POINT OF CARE 389 MG/DL (70-110)
[2017-05-20 19:12] VITALS: BP 145/87
[2017-05-20] MEDS: SIMVASTATIN 20 MG TABLET PO SCH (20:11)
[2017-05-20] MEDS: LORazepam 2 MG TABLET PO PRN (20:14)
[2017-05-20 20:17] LABS: GLUCOMETER DEV NAME(LOC) BV2N3; GLUCOSE,POINT OF CARE 211 MG/DL (70-110)
[2017-05-20] MEDS: INSULIN DETEMIR 100 UNITS/ML SQ SCH (20:20)
[2017-05-20] MEDS: ZOLPIDEM TARTRATE 10 MG TABLET PO PRN (21:29)
[2017-05-21 00:32] VITALS: BP 137/86
[2017-05-21 06:38] LABS: GLUCOMETER DEV NAME(LOC) BV2N3; GLUCOSE,POINT OF CARE 84 MG/DL (70-110)
[2017-05-21] MEDS: CHOLECALCIFEROL (VIT D3) 1,000 UNITS TABLET PO SCH (08:42)
[2017-05-21] MEDS: SitaGLIPtin PHOSPHATE 50 MG TABLET PO SCH (08:42)
[2017-05-21] MEDS: PANTOPRAZOLE SODIUM 40 MG DR TABLET PO SCH (08:42)
[2017-05-21] MEDS: VENLAFAXINE HCL 150 MG ER CAPSULE PO SCH (08:42)
[2017-05-21] MEDS: LITHIUM CARBONATE 300 MG CAPSULE PO SCH ×2 (08:42→16:44)
[2017-05-21] MEDS: HYDROCORTISONE 1% 30 GM CREAM TP SCH ×2 (08:42→16:44)
[2017-05-21] MEDS: DIVALPROEX SODIUM 500 MG DR TABLET PO SCH ×2 (08:42→16:44)
[2017-05-21] MEDS: MAGNESIUM OXIDE 400 MG TABLET PO SCH ×2 (08:42→16:44)
[2017-05-21] MEDS: NICOTINE 21 MG/24 HOUR PATCH TD SCH (08:43)
[2017-05-21 10:38] VITALS: BP 115/67
[2017-05-21 11:21] VITALS: BP 122/73
[2017-05-21] MEDS: IBUPROFEN 600 MG TABLET PO PRN (11:21)
[2017-05-21 11:23] LABS: GLUCOMETER DEV NAME(LOC) BV2N3; GLUCOSE,POINT OF CARE 289 MG/DL (70-110)
[2017-05-21] MEDS: INSULIN ASPART 100 UNITS/ML SQ PRN ×3 (11:23→20:58)
[2017-05-21 16:14] VITALS: BP 119/69
[2017-05-21 16:58] LABS: GLUCOMETER DEV NAME(LOC) BV2N3; GLUCOSE,POINT OF CARE 221 MG/DL (70-110)
[2017-05-21] MEDS: LORazepam 2 MG TABLET PO PRN (20:13)
[2017-05-21] MEDS: SIMVASTATIN 20 MG TABLET PO SCH (20:13)
[2017-05-21] MEDS: ZOLPIDEM TARTRATE 10 MG TABLET PO PRN (20:53)
[2017-05-21] MEDS: INSULIN DETEMIR 100 UNITS/ML SQ SCH (20:59)
[2017-05-21 21:47] LABS: GLUCOMETER DEV NAME(LOC) BV2N3; GLUCOSE,POINT OF CARE 181 MG/DL (70-110)
[2017-05-22 06:58] LABS: GLUCOMETER DEV NAME(LOC) BV2N3; GLUCOSE,POINT OF CARE 116 MG/DL (70-110)
[2017-05-22 07:05] VITALS: BP 121/73
[2017-05-22 08:54] VITALS: BP 102/56
[2017-05-22] MEDS: LITHIUM CARBONATE 300 MG CAPSULE PO SCH ×2 (09:45→16:19)
[2017-05-22] MEDS: NICOTINE 21 MG/24 HOUR PATCH TD SCH (09:45)
[2017-05-22] MEDS: CHOLECALCIFEROL (VIT D3) 1,000 UNITS TABLET PO SCH (09:45)
[2017-05-22] MEDS: SitaGLIPtin PHOSPHATE 50 MG TABLET PO SCH (09:45)
[2017-05-22] MEDS: DIVALPROEX SODIUM 500 MG DR TABLET PO SCH ×2 (09:45→16:18)
[2017-05-22] MEDS: PANTOPRAZOLE SODIUM 40 MG DR TABLET PO SCH (09:45)
[2017-05-22] MEDS: VENLAFAXINE HCL 150 MG ER CAPSULE PO SCH (09:45)
[2017-05-22] MEDS: MAGNESIUM OXIDE 400 MG TABLET PO SCH ×2 (09:45→16:18)
[2017-05-22] MEDS: LORazepam 2 MG TABLET PO PRN ×2 (10:08→20:20)
[2017-05-22] MEDS: HYDROCORTISONE 1% 30 GM CREAM TP SCH ×2 (10:08→16:24)
[2017-05-22 11:07] LABS: GLUCOMETER DEV NAME(LOC) BV2N3; GLUCOSE,POINT OF CARE 107 MG/DL (70-110)
[2017-05-22 16:08] VITALS: BP 109/63
[2017-05-22] MEDS: INSULIN ASPART 100 UNITS/ML SQ PRN ×2 (16:24→20:31)
[2017-05-22 16:27] LABS: GLUCOMETER DEV NAME(LOC) BV2N3; GLUCOSE,POINT OF CARE 363 MG/DL (70-110)
[2017-05-22] MEDS: SIMVASTATIN 20 MG TABLET PO SCH (20:20)
[2017-05-22] MEDS: INSULIN DETEMIR 100 UNITS/ML SQ SCH (20:30)
[2017-05-22 20:32] LABS: GLUCOMETER DEV NAME(LOC) BV2N3; GLUCOSE,POINT OF CARE 284 MG/DL (70-110)
[2017-05-22] MEDS: ZOLPIDEM TARTRATE 10 MG TABLET PO PRN (20:53)
[2017-05-22] MEDS: GuaiFENesin/D-METHORPHAN [SUGAR-FREE] 200-20MG/10 ML SYRUP UDCUP PO PRN (21:46)
[2017-05-23 05:19] VITALS: BP 111/65
[2017-05-23 06:52] LABS: GLUCOMETER DEV NAME(LOC) BV2N3; GLUCOSE,POINT OF CARE 105 MG/DL (70-110)
[2017-05-23 08:13] VITALS: BP 111/73
[2017-05-23] MEDS: LITHIUM CARBONATE 300 MG CAPSULE PO SCH ×2 (08:38→16:06)
[2017-05-23] MEDS: MAGNESIUM OXIDE 400 MG TABLET PO SCH ×2 (08:38→16:06)
[2017-05-23] MEDS: PANTOPRAZOLE SODIUM 40 MG DR TABLET PO SCH (08:38)
[2017-05-23] MEDS: DIVALPROEX SODIUM 500 MG DR TABLET PO SCH ×2 (08:38→16:06)
[2017-05-23] MEDS: CHOLECALCIFEROL (VIT D3) 1,000 UNITS TABLET PO SCH (08:38)
[2017-05-23] MEDS: VENLAFAXINE HCL 150 MG ER CAPSULE PO SCH (08:39)
[2017-05-23] MEDS: SitaGLIPtin PHOSPHATE 50 MG TABLET PO SCH (08:39)
[2017-05-23] MEDS: NICOTINE 21 MG/24 HOUR PATCH TD SCH (08:40)
[2017-05-23] MEDS: HYDROCORTISONE 1% 30 GM CREAM TP SCH ×2 (08:42→17:05)
[2017-05-23 11:02] LABS: GLUCOMETER DEV NAME(LOC) BV2N3; GLUCOSE,POINT OF CARE 166 MG/DL (70-110)
[2017-05-23] MEDS: INSULIN ASPART 100 UNITS/ML SQ PRN ×3 (11:02→20:37)
[2017-05-23 14:34] VITALS: BP 105/74
[2017-05-23] MEDS: LORazepam 2 MG TABLET PO PRN (14:36)
[2017-05-23] MEDS: IBUPROFEN 600 MG TABLET PO PRN (14:36)
[2017-05-23 16:32] LABS: GLUCOMETER DEV NAME(LOC) BV2N3; GLUCOSE,POINT OF CARE 249 MG/DL (70-110)
[2017-05-23 17:02] VITALS: BP 136/88
[2017-05-23] MEDS: SIMVASTATIN 20 MG TABLET PO SCH (20:22)
[2017-05-23] MEDS: ZOLPIDEM TARTRATE 10 MG TABLET PO PRN (20:22)
[2017-05-23 20:32] LABS: GLUCOMETER DEV NAME(LOC) BV2N3; GLUCOSE,POINT OF CARE 187 MG/DL (70-110)
[2017-05-23] MEDS: INSULIN DETEMIR 100 UNITS/ML SQ SCH (20:37)
[2017-05-24 06:23] LABS: GLUCOMETER DEV NAME(LOC) BV2N3; GLUCOSE,POINT OF CARE 215 MG/DL (70-110)
[2017-05-24] MEDS: INSULIN ASPART 100 UNITS/ML SQ PRN ×4 (06:56→20:50)
[2017-05-24 06:58] VITALS: BP 117/75
[2017-05-24 07:10] VITALS: BP 121/68
[2017-05-24] MEDS: HYDROCORTISONE 1% 30 GM CREAM TP SCH ×2 (09:00→16:33)
[2017-05-24 09:04] VITALS: BP 110/64
[2017-05-24] MEDS: PANTOPRAZOLE SODIUM 40 MG DR TABLET PO SCH (09:27)
[2017-05-24] MEDS: CHOLECALCIFEROL (VIT D3) 1,000 UNITS TABLET PO SCH (09:27)
[2017-05-24] MEDS: MAGNESIUM OXIDE 400 MG TABLET PO SCH ×2 (09:27→16:33)
[2017-05-24] MEDS: SitaGLIPtin PHOSPHATE 50 MG TABLET PO SCH (09:28)
[2017-05-24] MEDS: LITHIUM CARBONATE 300 MG CAPSULE PO SCH ×2 (09:28→16:33)
[2017-05-24] MEDS: DIVALPROEX SODIUM 500 MG DR TABLET PO SCH ×2 (09:28→16:33)
[2017-05-24] MEDS: HYDROCORTISONE 0.5% 30 GM CREAM TP PRN ×3 (09:30→09:33)
[2017-05-24] MEDS: NICOTINE 21 MG/24 HOUR PATCH TD SCH (09:30)
[2017-05-24] MEDS: VENLAFAXINE HCL 150 MG ER CAPSULE PO SCH (09:33)
[2017-05-24 10:12] LABS: GLUCOMETER DEV NAME(LOC) BV2N3; GLUCOSE,POINT OF CARE 294 MG/DL (70-110)
[2017-05-24] MEDS: HALOPERIDOL 5 MG TABLET PO PRN (10:25)
[2017-05-24 16:25] VITALS: BP 127/83
[2017-05-24 17:03] LABS: GLUCOMETER DEV NAME(LOC) BV2N3; GLUCOSE,POINT OF CARE 232 MG/DL (70-110)
[2017-05-24] MEDS: SIMVASTATIN 20 MG TABLET PO SCH (20:37)
[2017-05-24] MEDS: ZOLPIDEM TARTRATE 10 MG TABLET PO PRN (20:43)
[2017-05-24] MEDS: INSULIN DETEMIR 100 UNITS/ML SQ SCH (20:48)
[2017-05-24 20:52] LABS: GLUCOMETER DEV NAME(LOC) BV2N3; GLUCOSE,POINT OF CARE 179 MG/DL (70-110)
[2017-05-25 05:37] LABS: GLUCOMETER DEV NAME(LOC) BV2N3; GLUCOSE,POINT OF CARE 185 MG/DL (70-110)
[2017-05-25] MEDS: INSULIN ASPART 100 UNITS/ML SQ PRN (06:05)
[2017-05-25 06:33] VITALS: BP 118/83
[2017-05-25 08:03] LABS: BASOPHILS % (AUTO) 0.4 % (0.0-2.0); EOSINOPHILS % (AUTO) 1.5 % (1.0-6.0); HEMOGLOBIN 15.2 g/dL (13.5-17.5); LYMPHOCYTES # (AUTO) 0.9 K/uL (1.0-4.8); LYMPHOCYTES % (AUTO) 13.3 % (22.0-44.0); MEAN CORPUSCULAR HEMOGLOBIN 30.1 pg (26.0-34.0); MEAN CORPUSCULAR HGB CONC 33.1 G/dL (31.0-37.0); MEAN CORPUSCULAR VOLUME 91 fL (80-100); MONOCYTES # (AUTO) 0.6 K/uL (0.1-1.0); MONOCYTES % (AUTO) 9.7 % (2.0-9.0); NEUTROPHILS % (AUTO) 75.1 % (40.0-70.0); PLATELET COUNT (AUTO) 202 K/uL (150-450); RED BLOOD CELL COUNT(AUTO) 5.06 MIL/uL (4.50-5.90)
[2017-05-25 08:34] VITALS: BP 111/74
[2017-05-25] MEDS: LITHIUM CARBONATE 300 MG CAPSULE PO SCH ×2 (08:38→16:24)
[2017-05-25] MEDS: PANTOPRAZOLE SODIUM 40 MG DR TABLET PO SCH (08:38)
[2017-05-25] MEDS: MAGNESIUM OXIDE 400 MG TABLET PO SCH ×2 (08:38→16:24)
[2017-05-25] MEDS: DIVALPROEX SODIUM 500 MG DR TABLET PO SCH ×2 (08:39→16:24)
[2017-05-25] MEDS: VENLAFAXINE HCL 150 MG ER CAPSULE PO SCH (08:39)
[2017-05-25] MEDS: SitaGLIPtin PHOSPHATE 50 MG TABLET PO SCH (08:39)
[2017-05-25] MEDS: CHOLECALCIFEROL (VIT D3) 1,000 UNITS TABLET PO SCH (08:39)
[2017-05-25] MEDS: HYDROCORTISONE 1% 30 GM CREAM TP SCH ×2 (08:40→16:24)
[2017-05-25] MEDS: NICOTINE 21 MG/24 HOUR PATCH TD SCH (08:42)
[2017-05-25] MEDS ORDERED: CloZAPine 25 MG TABLET PO SCH ×2 (09:00)
[2017-05-25 11:17] LABS: GLUCOMETER DEV NAME(LOC) BV2N3; GLUCOSE,POINT OF CARE 136 MG/DL (70-110)
[2017-05-25] MEDS: HALOPERIDOL 5 MG TABLET PO PRN (14:57)
[2017-05-25 16:00] VITALS: BP 114/72
[2017-05-25] MEDS ORDERED: INSULIN ASPART 100 UNITS/ML SQ ONE ×2 (17:00→18:00)
[2017-05-25 17:42] LABS: GLUCOMETER DEV NAME(LOC) BV2N3; GLUCOSE,POINT OF CARE 465 MG/DL (70-110)
[2017-05-25 17:52] LABS: GLUCOMETER DEV NAME(LOC) BV2N3; GLUCOSE,POINT OF CARE 578 MG/DL (70-110)
[2017-05-25 18:53] LABS: GLUCOMETER DEV NAME(LOC) BV2N3; GLUCOSE,POINT OF CARE 466 MG/DL (70-110)
[2017-05-25] MEDS: SIMVASTATIN 20 MG TABLET PO SCH (20:37)
[2017-05-25] MEDS: INSULIN DETEMIR 100 UNITS/ML SQ SCH (20:58)
[2017-05-25 21:27] LABS: GLUCOMETER DEV NAME(LOC) BV2N3; GLUCOSE,POINT OF CARE 202 MG/DL (70-110)
[2017-05-26 00:32] LABS: GLUCOMETER DEV NAME(LOC) BV2N3; GLUCOSE,POINT OF CARE 111 MG/DL (70-110)
[2017-05-26 00:45] VITALS: BP 129/82
[2017-05-26 07:07] LABS: GLUCOMETER DEV NAME(LOC) BV2N3; GLUCOSE,POINT OF CARE 128 MG/DL (70-110)
[2017-05-26] MEDS: NICOTINE 21 MG/24 HOUR PATCH TD SCH (08:28)
[2017-05-26] MEDS: PANTOPRAZOLE SODIUM 40 MG DR TABLET PO SCH (08:28)
[2017-05-26] MEDS: HYDROCORTISONE 1% 30 GM CREAM TP SCH ×2 (08:29→16:16)
[2017-05-26] MEDS: MAGNESIUM OXIDE 400 MG TABLET PO SCH ×2 (08:29→16:16)
[2017-05-26] MEDS: DIVALPROEX SODIUM 500 MG DR TABLET PO SCH ×2 (08:29→16:15)
[2017-05-26] MEDS: LITHIUM CARBONATE 300 MG CAPSULE PO SCH ×2 (08:29→16:15)
[2017-05-26 08:38] VITALS: BP 109/67
[2017-05-26] MEDS: VENLAFAXINE HCL 150 MG ER CAPSULE PO SCH (08:39)
[2017-05-26] MEDS: SitaGLIPtin PHOSPHATE 50 MG TABLET PO SCH (08:39)
[2017-05-26] MEDS: CHOLECALCIFEROL (VIT D3) 1,000 UNITS TABLET PO SCH (08:41)
[2017-05-26] MEDS ORDERED: CloZAPine 25 MG TABLET PO SCH ×2 (09:00→21:00)
[2017-05-26 10:52] LABS: GLUCOMETER DEV NAME(LOC) BV2N3; GLUCOSE,POINT OF CARE 298 MG/DL (70-110)
[2017-05-26] MEDS: INSULIN ASPART 100 UNITS/ML SQ PRN ×3 (11:53→21:22)
[2017-05-26 16:00] VITALS: BP 112/75
[2017-05-26 16:43] LABS: GLUCOMETER DEV NAME(LOC) BV2N3; GLUCOSE,POINT OF CARE 182 MG/DL (70-110)
[2017-05-26] MEDS: IBUPROFEN 600 MG TABLET PO PRN (16:49)
[2017-05-26] MEDS: SIMVASTATIN 20 MG TABLET PO SCH (20:19)
[2017-05-26 21:22] LABS: GLUCOMETER DEV NAME(LOC) BV2N3; GLUCOSE,POINT OF CARE 303 MG/DL (70-110)
[2017-05-26] MEDS: INSULIN DETEMIR 100 UNITS/ML SQ SCH (21:23)
[2017-05-27 06:37] VITALS: BP 105/65
[2017-05-27 07:03] LABS: GLUCOMETER DEV NAME(LOC) BV2N3; GLUCOSE,POINT OF CARE 117 MG/DL (70-110)
[2017-05-27] MEDS: HYDROCORTISONE 1% 30 GM CREAM TP SCH ×2 (09:00→16:34)
[2017-05-27] MEDS ORDERED: CloZAPine 25 MG TABLET PO SCH ×2 (09:00→21:00)
[2017-05-27 10:00] VITALS: BP 113/65
[2017-05-27] MEDS: DIVALPROEX SODIUM 500 MG DR TABLET PO SCH ×2 (10:08→16:32)
[2017-05-27] MEDS: SitaGLIPtin PHOSPHATE 50 MG TABLET PO SCH (10:08)
[2017-05-27] MEDS: HYDROCORTISONE 0.5% 30 GM CREAM TP PRN (10:08)
[2017-05-27] MEDS: VENLAFAXINE HCL 150 MG ER CAPSULE PO SCH (10:08)
[2017-05-27] MEDS: MAGNESIUM OXIDE 400 MG TABLET PO SCH ×2 (10:09→16:32)
[2017-05-27] MEDS: PANTOPRAZOLE SODIUM 40 MG DR TABLET PO SCH (10:09)
[2017-05-27] MEDS: LITHIUM CARBONATE 300 MG CAPSULE PO SCH ×2 (10:09→16:32)
[2017-05-27] MEDS: CHOLECALCIFEROL (VIT D3) 1,000 UNITS TABLET PO SCH (10:10)
[2017-05-27 11:38] LABS: GLUCOMETER DEV NAME(LOC) BV2N3; GLUCOSE,POINT OF CARE 138 MG/DL (70-110)
[2017-05-27 16:22] VITALS: BP 126/84
[2017-05-27] MEDS ORDERED: INSULIN ASPART 100 UNITS/ML SQ ONE ×2 (17:00→18:00)
[2017-05-27 18:57] LABS: GLUCOMETER DEV NAME(LOC) BV2N3; GLUCOSE,POINT OF CARE 505 MG/DL (70-110)
[2017-05-27 18:57] LABS: GLUCOMETER DEV NAME(LOC) BV2N3; GLUCOSE,POINT OF CARE 579 MG/DL (70-110)
[2017-05-27 19:22] LABS: GLUCOMETER DEV NAME(LOC) BV2N3; GLUCOSE,POINT OF CARE 530 MG/DL (70-110)
[2017-05-27] MEDS: SIMVASTATIN 20 MG TABLET PO SCH (21:22)
[2017-05-27] MEDS: INSULIN DETEMIR 100 UNITS/ML SQ SCH (21:39)
[2017-05-27] MEDS: ZOLPIDEM TARTRATE 10 MG TABLET PO PRN (22:02)
[2017-05-27 23:33] LABS: GLUCOMETER DEV NAME(LOC) BV2N3; GLUCOSE,POINT OF CARE 223 MG/DL (70-110)
[2017-05-28 00:51] VITALS: BP 118/89
[2017-05-28 01:27] LABS: GLUCOMETER DEV NAME(LOC) BV2N3; GLUCOSE,POINT OF CARE 104 MG/DL (70-110)
[2017-05-28] MEDS: INSULIN ASPART 100 UNITS/ML SQ PRN ×5 (06:41→20:59)
[2017-05-28 07:43] LABS: GLUCOMETER DEV NAME(LOC) BV2N3; GLUCOSE,POINT OF CARE 373 MG/DL (70-110)
[2017-05-28 08:43] VITALS: BP 119/77
[2017-05-28] MEDS: LITHIUM CARBONATE 300 MG CAPSULE PO SCH ×2 (09:00→16:12)
[2017-05-28] MEDS: SitaGLIPtin PHOSPHATE 50 MG TABLET PO SCH (09:00)
[2017-05-28] MEDS: PANTOPRAZOLE SODIUM 40 MG DR TABLET PO SCH (09:00)
[2017-05-28] MEDS: CHOLECALCIFEROL (VIT D3) 1,000 UNITS TABLET PO SCH (09:00)
[2017-05-28] MEDS: CloZAPine 25 MG TABLET PO SCH ×2 (09:00→21:00)
[2017-05-28] MEDS: MAGNESIUM OXIDE 400 MG TABLET PO SCH ×2 (09:00→16:12)
[2017-05-28] MEDS: HYDROCORTISONE 1% 30 GM CREAM TP SCH ×2 (09:00→16:12)
[2017-05-28] MEDS: DIVALPROEX SODIUM 500 MG DR TABLET PO SCH ×2 (09:00→16:12)
[2017-05-28] MEDS: VENLAFAXINE HCL 150 MG ER CAPSULE PO SCH (09:00)
[2017-05-28] MEDS: IBUPROFEN 600 MG TABLET PO PRN ×2 (09:44→16:15)
[2017-05-28 10:52] LABS: GLUCOMETER DEV NAME(LOC) BV2N3; GLUCOSE,POINT OF CARE 323 MG/DL (70-110)
[2017-05-28 16:00] VITALS: BP 125/81
[2017-05-28 16:58] LABS: GLUCOMETER DEV NAME(LOC) BV2N3; GLUCOSE,POINT OF CARE 243 MG/DL (70-110)
[2017-05-28] MEDS: INSULIN DETEMIR 100 UNITS/ML SQ SCH (20:57)
[2017-05-28] MEDS: SIMVASTATIN 20 MG TABLET PO SCH (21:11)
[2017-05-28] MEDS: ZOLPIDEM TARTRATE 10 MG TABLET PO PRN (21:14)
[2017-05-28 21:17] LABS: GLUCOMETER DEV NAME(LOC) BV2N3; GLUCOSE,POINT OF CARE 219 MG/DL (70-110)
[2017-05-29 01:19] VITALS: BP_SYST 120; BP_SYST 127; BP_DIAS 81
[2017-05-29 06:32] LABS: GLUCOMETER DEV NAME(LOC) BV2N3; GLUCOSE,POINT OF CARE 103 MG/DL (70-110)
[2017-05-29] MEDS: HYPROMELLOSE 0.5% 15 ML OPHTHALMIC SOLUTION OU PRN (07:02)
[2017-05-29] MEDS: DIVALPROEX SODIUM 500 MG DR TABLET PO SCH ×2 (08:04→16:31)
[2017-05-29] MEDS: SitaGLIPtin PHOSPHATE 50 MG TABLET PO SCH (08:04)
[2017-05-29] MEDS: LITHIUM CARBONATE 300 MG CAPSULE PO SCH ×2 (08:04→16:31)
[2017-05-29] MEDS: VENLAFAXINE HCL 150 MG ER CAPSULE PO SCH (08:04)
[2017-05-29] MEDS: CHOLECALCIFEROL (VIT D3) 1,000 UNITS TABLET PO SCH (08:04)
[2017-05-29] MEDS: PANTOPRAZOLE SODIUM 40 MG DR TABLET PO SCH (08:04)
[2017-05-29] MEDS: MAGNESIUM OXIDE 400 MG TABLET PO SCH ×2 (08:05→16:31)
[2017-05-29] MEDS: HYDROCORTISONE 0.5% 30 GM CREAM TP PRN (08:05)
[2017-05-29] MEDS: CloZAPine 25 MG TABLET PO SCH ×2 (08:09→21:00)
[2017-05-29 08:20] VITALS: BP 144/78
[2017-05-29] MEDS: HYDROCORTISONE 1% 30 GM CREAM TP SCH ×2 (09:07→16:58)
[2017-05-29] MEDS: IBUPROFEN 600 MG TABLET PO PRN (09:08)
[2017-05-29 11:07] LABS: GLUCOMETER DEV NAME(LOC) BV2N3; GLUCOSE,POINT OF CARE 267 MG/DL (70-110)
[2017-05-29] MEDS: INSULIN ASPART 100 UNITS/ML SQ PRN ×3 (11:13→21:11)
[2017-05-29] MEDS: LORazepam 2 MG TABLET PO PRN ×2 (13:27→22:51)
[2017-05-29 16:43] LABS: GLUCOMETER DEV NAME(LOC) BV2N3; GLUCOSE,POINT OF CARE 220 MG/DL (70-110)
[2017-05-29 17:05] VITALS: BP 141/86
[2017-05-29] MEDS: SIMVASTATIN 20 MG TABLET PO SCH (20:29)
[2017-05-29 21:03] LABS: GLUCOMETER DEV NAME(LOC) BV2N3; GLUCOSE,POINT OF CARE 314 MG/DL (70-110)
[2017-05-29] MEDS: ZOLPIDEM TARTRATE 10 MG TABLET PO PRN (21:10)
[2017-05-29] MEDS: INSULIN DETEMIR 100 UNITS/ML SQ SCH (21:12)
[2017-05-30 07:12] LABS: GLUCOMETER DEV NAME(LOC) BV2N3; GLUCOSE,POINT OF CARE 136 MG/DL (70-110)
[2017-05-30 07:18] VITALS: BP 121/73
[2017-05-30 08:25] VITALS: BP 109/78
[2017-05-30] MEDS: MAGNESIUM OXIDE 400 MG TABLET PO SCH ×2 (08:28→16:38)
[2017-05-30] MEDS: CHOLECALCIFEROL (VIT D3) 1,000 UNITS TABLET PO SCH (08:28)
[2017-05-30] MEDS: VENLAFAXINE HCL 150 MG ER CAPSULE PO SCH (08:28)
[2017-05-30] MEDS: LITHIUM CARBONATE 300 MG CAPSULE PO SCH ×2 (08:29→16:38)
[2017-05-30] MEDS: SitaGLIPtin PHOSPHATE 50 MG TABLET PO SCH (08:29)
[2017-05-30] MEDS: PANTOPRAZOLE SODIUM 40 MG DR TABLET PO SCH (08:29)
[2017-05-30] MEDS: DIVALPROEX SODIUM 500 MG DR TABLET PO SCH ×2 (08:29→16:38)
[2017-05-30] MEDS: HYDROCORTISONE 1% 30 GM CREAM TP SCH ×2 (08:30→16:39)
[2017-05-30] MEDS: IBUPROFEN 600 MG TABLET PO PRN (08:32)
[2017-05-30] MEDS ORDERED: CloZAPine 25 MG TABLET PO SCH (09:00)
[2017-05-30] MEDS: INSULIN ASPART 100 UNITS/ML SQ PRN (11:05)
[2017-05-30 15:38] LABS: GLUCOMETER DEV NAME(LOC) BV2N3; GLUCOSE,POINT OF CARE 374 MG/DL (70-110)
[2017-05-30 16:00] VITALS: BP 117/74
[2017-05-30 17:13] LABS: GLUCOMETER DEV NAME(LOC) BV2N3; GLUCOSE,POINT OF CARE 79 MG/DL (70-110)
[2017-05-30] MEDS: SIMVASTATIN 20 MG TABLET PO SCH (20:25)
[2017-05-30 20:33] LABS: GLUCOMETER DEV NAME(LOC) BV2N3; GLUCOSE,POINT OF CARE 79 MG/DL (70-110)
[2017-05-30] MEDS ORDERED: CloZAPine 100 MG TABLET PO SCH (21:00)
[2017-05-30] MEDS: INSULIN DETEMIR 100 UNITS/ML SQ SCH (21:57)
[2017-05-30] MEDS: ZOLPIDEM TARTRATE 10 MG TABLET PO PRN (21:59)
[2017-05-30 22:03] LABS: GLUCOMETER DEV NAME(LOC) BV2N3; GLUCOSE,POINT OF CARE 104 MG/DL (70-110)
[2017-05-31 00:25] VITALS: BP 116/67
[2017-05-31] MEDS: IBUPROFEN 600 MG TABLET PO PRN ×2 (01:02→13:36)
[2017-05-31 03:11] VITALS: BP 112/88
[2017-05-31] MEDS: LORazepam 2 MG TABLET PO PRN (03:13)
[2017-05-31] MEDS: HALOPERIDOL 5 MG TABLET PO PRN (03:13)
[2017-05-31 06:24] LABS: GLUCOMETER DEV NAME(LOC) BV2N3; GLUCOSE,POINT OF CARE 175 MG/DL (70-110)
[2017-05-31] MEDS: INSULIN ASPART 100 UNITS/ML SQ PRN ×3 (06:40→16:45)
[2017-05-31] MEDS: MAGNESIUM OXIDE 400 MG TABLET PO SCH ×2 (08:41→16:12)
[2017-05-31] MEDS: VENLAFAXINE HCL 150 MG ER CAPSULE PO SCH (08:41)
[2017-05-31] MEDS: DIVALPROEX SODIUM 500 MG DR TABLET PO SCH ×2 (08:41→16:12)
[2017-05-31] MEDS: SitaGLIPtin PHOSPHATE 50 MG TABLET PO SCH (08:41)
[2017-05-31] MEDS: CHOLECALCIFEROL (VIT D3) 1,000 UNITS TABLET PO SCH (08:41)
[2017-05-31] MEDS: LITHIUM CARBONATE 300 MG CAPSULE PO SCH ×2 (08:41→16:12)
[2017-05-31] MEDS: PANTOPRAZOLE SODIUM 40 MG DR TABLET PO SCH (08:42)
[2017-05-31] MEDS: HYDROCORTISONE 1% 30 GM CREAM TP SCH ×2 (08:43→16:13)
[2017-05-31] MEDS ORDERED: CloZAPine 25 MG TABLET PO SCH (09:00)
[2017-05-31 09:32] VITALS: BP 112/69
[2017-05-31 10:58] LABS: GLUCOMETER DEV NAME(LOC) BV2N3; GLUCOSE,POINT OF CARE 237 MG/DL (70-110)
[2017-05-31 16:05] VITALS: BP 110/67
[2017-05-31] MEDS ORDERED: MAGNESIUM-VIT1 EACH PO (16:59)
[2017-05-31] MEDS ORDERED: INSU100V12 SQ (16:59)
[2017-05-31] MEDS ORDERED: LITH300C3 PO (16:59)
[2017-05-31] MEDS ORDERED: VIT1TABL95 PO (16:59)
[2017-05-31] MEDS ORDERED: SIMV-260 PO (16:59)
[2017-05-31] MEDS ORDERED: SITA50 PO (16:59)
[2017-05-31] MEDS ORDERED: CLOZ100T PO (16:59)
[2017-05-31] MEDS ORDERED: CLOZ25TA PO (16:59)
[2017-05-31] MEDS ORDERED: INSU100C6 SQ (16:59)
[2017-05-31] MEDS ORDERED: VENL75CA55 PO (16:59)
[2017-05-31] MEDS ORDERED: DIVA250T4 PO (16:59)
[2017-05-31] MEDS ORDERED: INSULIN ASPART 100 UNITS/ML SQ SCH (17:30)
[2017-05-31 18:38] LABS: GLUCOMETER DEV NAME(LOC) BV2N3; GLUCOSE,POINT OF CARE 208 MG/DL (70-110)
[2017-05-31] MEDS ORDERED: CloZAPine 100 MG TABLET PO SCH (21:00)
[2017-06-01] MEDS ORDERED: CloZAPine 25 MG TABLET PO SCH (09:00)
[2017-06-01] MEDS ORDERED: CloZAPine 100 MG TABLET PO SCH (21:00)
[2017-06-02] MEDS ORDERED: CloZAPine 100 MG TABLET PO SCH (09:00)
[2017-06-04] MEDS ORDERED: CloZAPine 25 MG TABLET PO SCH (09:00)
[2017-06-04] MEDS ORDERED: CloZAPine 100 MG TABLET PO SCH (21:00)
[2017-06-05] MEDS ORDERED: CloZAPine 25 MG TABLET PO SCH (09:00)
[2017-06-05] MEDS ORDERED: CloZAPine 100 MG TABLET PO SCH (21:00)
[2017-06-06] MEDS ORDERED: CloZAPine 100 MG TABLET PO SCH ×2 (09:00→21:00)
== END 2017-05-31 17:32 | disposition home or self-care (01) | DRG 753 ==
LOC: B3A 20:30 → B2S 05-13 21:20
PROVIDERS: ADMIT Psychiatry & Neurology Psychiatry; ATTEND Psychiatry & Neurology Psychiatry
DX: F31.5 Bipolar disorder, current episode depressed, severe, with psychotic features (principal); R45.851 Suicidal ideations; F15.20 Other stimulant dependence, uncomplicated; I10 Essential (primary) hypertension; F17.200 Nicotine dependence, unspecified, uncomplicated; G47.00 Insomnia, unspecified; K21.9 Gastro-esophageal reflux disease without esophagitis; K59.00 Constipation, unspecified; I49.9 Cardiac arrhythmia, unspecified; E10.9 Type 1 diabetes mellitus without complications; Z59.0 Homelessness; Z95.0 Presence of cardiac pacemaker; Z79.4 Long term (current) use of insulin; Z79.899 Other long term (current) drug therapy
CPT/HCPCS: 82306; 82962; 83036; 83735; 84100; 84443; 85007; 87081; J1815